=== PATIENT | female | born 1950 | race Caucasian/White ===

== ENCOUNTER 2017-03-14 14:33 | Inpatient (IN) ==
[2017-03-14 16:00] LABS: Bilirubin,Urine Negative (Negative); Blood,Urine Trace (Negative); Clarity,Urine Cloudy (Clear); Color,Urine Yellow (Yellow); Glucose,Urine (UA) Normal (Normal); Ketones,Urine Negative (Negative); Leukocyte Esterase,Urine Moderate (Negative); Nitrite,Urine Negative (Negative); PH,Urine 6.5 pH Units (5.0-8.0); Protein,Urine Negative (Neg-Trace); Specific Gravity,Urine 1.009 (1.010-1.025); Urobilinogen,Urine Normal (Normal)
--- NOTE | 2017-03-14 16:06 | Emergency Department Note ---
Disposition Clinical Impression: Altered mental status Qualifiers: Altered mental status type: disorientation Qualified Code(s): R41.0 - Disorientation, unspecified UTI (urinary tract infection) Qualifiers: Urinary tract infection type: acute cystitis Hematuria presence: with hematuria Qualified Code(s): N30.01 - Acute cystitis with hematuria Disposition: Admitted As Inpatient Condition: Good Time of Disposition: 17:16 General Adult HPI - General Chief complaint: ED Altered Mental Status Stated complaint: "pain all over" Time Seen by Provider: 03/14/17 15:02 Source: patient Mode of arrival: ambulatory Limitations: no limitations Nursing Notes Reviewed: Yes Vital Signs Reviewed: Yes - History of Present Illness HPI Narrative: Patient confused. Found wandering throughout the emergency department waiting room. Complaining of pain all over. States she fell 2 weeks ago and has had pain ever since. Pain Scale: 0 - Related Data Home Medications Medication Instructions Recorded Confirmed ALPRAZolam [Xanax 0.5 MG Tablet] 0.5 mg PO BID 01/27/17 03/14/17 Aspirin 81 mg PO DAILY 01/27/17 03/14/17 Atorvastatin [Lipitor] 20 mg PO HS 01/27/17 03/14/17 Carvedilol [Coreg] 6.25 mg PO BIDWM 01/27/17 03/14/17 Citalopram [CeleXA] 20 mg PO DAILY 01/27/17 03/14/17 Dicyclomine [Bentyl] 20 mg PO QID 01/27/17 03/14/17 Lisinopril [Zestril] 5 mg PO DAILY 01/27/17 03/14/17 Potassium Chloride [K-Tab ER] 30 meq PO DAILY 01/27/17 03/14/17 Ranitidine HCl [Zantac] 300 mg PO DAILY 01/27/17 03/14/17 SUMAtriptan succinate [Imitrex] 50 mg PO Q2H PRN MDD 200 01/27/17 03/14/17 Topiramate [Topamax] 25 mg PO DAILY 01/27/17 03/14/17 Tramadol HCl [Ultram] 50 mg PO Q8H PRN 01/27/17 03/14/17 rOPINIRole [Requip] 2 mg PO HS 01/27/17 03/14/17 Metoprolol XL (24 HR) Succ [Toprol 50 mg PO DAILY 03/14/17 03/14/17 XL] Allergies Allergy/AdvReac Type Severity Reaction Status Date / Time Penicillins [PCN] Allergy See Verified 01/27/17 21:40 Comments morphine AdvReac Itching Verified 01/27/17 21:40 Review of Systems: Patient appears to be confused however when questioned she denies any fevers or chills. She denies any chest pain or shortness of breath. She does report pain to the back of her head. She denies nausea vomiting diarrhea. She denies abdominal pain. Denies any swelling to her extremities. All systems ED: reviewed and negative except as stated. Past Medical History - Past Medical History Attestation: Yes The following information was validated with the patient. Source: patient Medical history: Reports: coronary artery disease, hypertension, myocardial infarction, other Surgical history: Reports: non-contributory Psychiatric history: Reports: depression, prior suicide attempt LUMP INSPECTOR history: Reports: no LUMP INSPECTOR history - Social History Smoking Status: Current every day smoker Smokeless Tobacco Status: No Alcohol use: Reports: none Drug use: Reports: none Physical Exam - General Limitations: no limitations General appearance: alert, in no apparent distress, other (Somewhat confused. However no spurs in place month and year.) - Head Head exam: atraumatic, normocephalic, normal inspection - Eye Eye exam: Present: normal appearance, PERRL, EOMI. Absent: scleral icterus - ENT ENT exam: normal exam, normal oropharynx, mucous membranes moist - Neck Neck exam: Present: normal inspection, full ROM, trachea midline. Absent: tenderness, meningismus, lymphadenopathy - Chest Chest inspection: Present: normal inspection, symmetric chest wall rise. Absent : tenderness - Respiratory Respiratory exam: Present: normal lung sounds bilaterally. Absent: respiratory distress, wheezes, accessory muscle use - Cardiovascular Cardiovascular exam: Present: regular rate, normal rhythm, normal heart sounds - Abdominal Exam Abdominal exam: Present: soft, Non-Tender, normal bowel sounds. Absent: tenderness, distention, guarding, rebound, rigidity, organomegaly - Extremities Exam Extremities exam: Present: normal inspection, full ROM, normal capillary refill , other (Mild pain to palpation of right thigh area. No ecchymos no signs of trauma.). Absent: tenderness, pedal edema - Back Exam Back exam: Present: normal inspection, full ROM, CVA tenderness (R). Absent: tenderness - Neurological Exam Neurological exam: Present: alert, oriented X3, CN II-XII intact, other (But confused. She frequently changes her story. She is neurologically intact.). Absent: motor sensory deficit - Psychiatric Psychiatric exam: Present: normal affect, normal mood - Skin Skin exam: Present: warm, dry, intact, normal color. Absent: rash, cyanosis, diaphoresis, erythema Course Course Narrative: Female patient presenting to the emergency department complaining of pain all over. She was found wandering through the ED waiting room. She states that her neighbor brought her here. She is alert to person place and time. She knows her name where she has what month it is and what year it is. However she does appear confused whenever you are speaking to her. She states her neighbor brought her here. Her story is that 2 weeks ago she fell. She is unable to tell me where she fell other than it was at her house. She cannot tell me where in her house that she fell. She keeps saying that she just has pain everywhere. Even after asked her specifically where she hurts she says her head and her. On exam I do not appreciate any signs of trauma. Her pupils are equal and reactive to light. On a chart review she was recently admitted for hydrocephalus. There was a concern for meningitis however on LP she had alo blood. The CTA could not rule out a subarachnoid bleed and she was transferred to [place]. Patient states that she has been ambulatory since her fall. She states that her neighbor brought her to the hospital. On exam she does complain of pain to the posterior aspect of her head. Again I do not appreciate any signs of trauma. Her pupils are equal and reactive to light. She has no point tenderness to her C-spine. There are no step-offs. She does have midline tenderness to her thoracic area however there are no step-offs or signs of trauma. She has no neurological deficits. She has good finger to nose and heel to haji. - Reevaluation(s) Reevaluation #1: Patient is more confused at this time. We have spoken with her primary care physician who states that she called his cell phone this morning. She is now stating that she has not slept in 2 days because "the storm is coming." Patient does appear greater than her stated age. We will admit the patient to the hospital for altered mental status as well as UTI. We have started her on antibiotics. The PCP alludes to the patient's mental status has been declining. States that she does have a psychiatric history and has had one episode where she abused her benzos previously. However her drug screen is negative at this time. I am unsure how long it has been since she has taken her meds. She did report to my attending that she has not taken her meds in several days. Time: 16:58 - Consultations Consultation #1: Nivia NEWSSTAND VENDOR accepted patient in stable condition. Time: 17:32 Vital Signs Temperature 97.8 F 03/14/17 15:05 Pulse Rate 84 03/14/17 15:05 Respiratory Rate 16 03/14/17 15:05 Blood Pressure 144/78 03/14/17 15:05 O2 Sat by Pulse Oximetry 98 03/14/17 15:05 Temperature 97.8 F 03/14/17 15:05 Pulse Rate 81 03/14/17 17:46 Respiratory Rate 16 03/14/17 18:16 Blood Pressure 148/80 03/14/17 18:16 O2 Sat by Pulse Oximetry 98 03/14/17 17:46 Oxygen Delivery Oxygen Delivery Room Air Medical Decision Making - Medical Records Medical records reviewed: Yes I reviewed the patient's medical records. - Lab Data Lab results reviewed: Yes I reviewed the patient's lab results. Result diagrams: 03/14/17 16:04 03/14/17 16:04 Lab Results 03/14/17 03/14/17 03/14/17 Range/Units 15:21 15:52 15:55 WBC (4.3-11.1) K/mcL RBC (3.82-4.97) M/mcL Hgb (11.5-15.4) g/dL Hct (35.3-44.9) % MCV (83.0-100.0) fL MCH (28.0-33.3) pg MCHC (31.6-35.5) g/dL RDW (11.5-14.5) % Plt Count (140-400) K/mcL MPV (9.4-12.4) fL Immature Gran % (0-4) % Seg Neutrophils % % Lymphocytes % % Monocytes % % Eosinophils % % Basophils % % Neutrophils # (1.6-8.9) K/mcL Lymphocytes # (0.6-4.6) K/mcL Monocytes # (0.0-1.3) K/mcL Eosinophils # (0.0-0.6) K/mcL Basophils # (0.0-0.2) K/mcL PT (9.4-12.1) Seconds INR APTT (26.0-36.0) Seconds Sodium (136-145) mEq/L Potassium (3.5-4.5) mEq/L Chloride (98-109) mEq/L Carbon Dioxide (19-29) mEq/L BUN (7-20) mg/dL Creatinine (0.57-1.11) mg/dL Est GFR ( Amer) (> 60) Est GFR (Non-Af Amer) (> 60) BUN/Creatinine Ratio (6-26) Glucose (70-99) mg/dL POC Glucose 134 H (58-89) Calculated Osmolality (280-300) Calcium (8.6-10.8) mg/dL Total Bilirubin (0.2-1.2) mg/dL Direct Bilirubin (0.0-0.5) mg/dL Indirect Bilirubin (0.0-1.2) mg/dL AST (5-34) Units/L ALT (0-55) Units/L Alkaline Phosphatase (38-126) Units/L Ammonia (18-72) mcmol/L Creatine Kinase (29-168) Units/L Troponin I (0-0.03) ng/mL Serum Total Protein (6.0-8.3) g/dL Albumin (3.5-5.0) g/dL Globulin (2.4-3.5) g/dL Albumin/Globulin Ratio (1.1-2.2) Urine Color Yellow (Yellow) Urine Clarity Cloudy A (Clear) Urine pH 6.5 (5.0-8.0) pH Units Ur Specific [place] 1.009 L (1.010-1.025) Urine Protein Negative (Neg-Trace) mg/dL Urine Glucose (UA) Normal (Normal) mg/dL Urine Ketones Negative (Negative) mg/dL Urine Blood Trace H (Negative) Urine Nitrite Negative (Negative) Urine Bilirubin Negative (Negative) Urine Urobilinogen Normal (Normal) mg/dL Ur Leukocyte Esterase Moderate H (Negative) Urine Microscopic RBC 0-3 (0-3) per hpf Urine Microscopic WBC 5-15 H (0-3) per hpf Ur Squamous Epith Cells Few (None-Few) per lpf Urine Bacteria Few (None-Few) per hpf Hyaline Casts None Seen (None-Few) per lpf Ur Culture Indicated? YES A (NO) Urine Opiates Screen Negative (Xfqnhi=490) ng/mL Ur Barbiturates Screen Negative (Vuekxj=301) ng/mL Ur Phencyclidine Scrn Negative (Cutoff=25) ng/mL Ur Amphetamines Screen Negative (Rdnmpm=5025) ng/mL U Benzodiazepines Scrn Negative (Lumebl=643) ng/mL Urine Cocaine Screen Negative (Cutoff= 300) ng/mL U Marijuana (THC) Screen Negative (Cutoff = 50) ng/mL Ethyl Alcohol (0-10) mg/dL 03/14/17 03/14/17 03/14/17 Range/Units 16:04 16:04 16:04 WBC 7.2 (4.3-11.1) K/mcL RBC 4.31 (3.82-4.97) M/mcL Hgb 13.6 (11.5-15.4) g/dL Hct 42.2 (35.3-44.9) % MCV 97.9 (83.0-100.0) fL MCH 31.6 (28.0-33.3) pg MCHC 32.2 (31.6-35.5) g/dL RDW 13.0 (11.5-14.5) % Plt Count 306 (140-400) K/mcL MPV 9.5 (9.4-12.4) fL Immature Gran % 0.3 (0-4) % Seg Neutrophils % 60.6 % Lymphocytes % 27.8 % Monocytes % 10.1 % Eosinophils % 0.6 % Basophils % 0.6 % Neutrophils # 4.4 (1.6-8.9) K/mcL Lymphocytes # 2.0 (0.6-4.6) K/mcL Monocytes # 0.7 (0.0-1.3) K/mcL Eosinophils # 0.0 (0.0-0.6) K/mcL Basophils # 0.0 (0.0-0.2) K/mcL PT 10.7 (9.4-12.1) Seconds INR 1.0 APTT 24.6 L (26.0-36.0) Seconds Sodium 137 (136-145) mEq/L Potassium 3.5 (3.5-4.5) mEq/L Chloride 102 (98-109) mEq/L Carbon Dioxide 30 H (19-29) mEq/L BUN 8 (7-20) mg/dL Creatinine 0.77 (0.57-1.11) mg/dL Est GFR ( Amer) > 60 (> 60) Est GFR (Non-Af Amer) > 60 (> 60) BUN/Creatinine Ratio 10 (6-26) Glucose 126 H (70-99) mg/dL POC Glucose (58-89) Calculated Osmolality 284 (280-300) Calcium 9.1 (8.6-10.8) mg/dL Total Bilirubin 1.1 (0.2-1.2) mg/dL Direct Bilirubin 0.5 (0.0-0.5) mg/dL Indirect Bilirubin 0.6 (0.0-1.2) mg/dL AST 27 (5-34) Units/L ALT 28 (0-55) Units/L Alkaline Phosphatase 127 H (38-126) Units/L Ammonia (18-72) mcmol/L Creatine Kinase (29-168) Units/L Troponin I (0-0.03) ng/mL Serum Total Protein 6.2 (6.0-8.3) g/dL Albumin 3.1 L (3.5-5.0) g/dL Globulin 3.1 (2.4-3.5) g/dL Albumin/Globulin Ratio 1.0 L (1.1-2.2) Urine Color (Yellow) Urine Clarity (Clear) Urine pH (5.0-8.0) pH Units Ur Specific [place] (1.010-1.025) Urine Protein (Neg-Trace) mg/dL Urine Glucose (UA) (Normal) mg/dL Urine Ketones (Negative) mg/dL Urine Blood (Negative) Urine Nitrite (Negative) Urine Bilirubin (Negative) Urine Urobilinogen (Normal) mg/dL Ur Leukocyte Esterase (Negative) Urine Microscopic RBC (0-3) per hpf Urine Microscopic WBC (0-3) per hpf Ur Squamous Epith Cells (None-Few) per lpf Urine Bacteria (None-Few) per hpf Hyaline Casts (None-Few) per lpf Ur Culture Indicated? (NO) Urine Opiates Screen (Watbcv=049) ng/mL Ur Barbiturates Screen (Qmsegw=563) ng/mL Ur Phencyclidine Scrn (Cutoff=25) ng/mL Ur Amphetamines Screen (Vxdyon=4797) ng/mL U Benzodiazepines Scrn (Gdoegs=969) ng/mL Urine Cocaine Screen (Cutoff= 300) ng/mL U Marijuana (THC) Screen (Cutoff = 50) ng/mL Ethyl Alcohol < 10 (0-10) mg/dL 03/14/17 03/14/17 03/14/17 Range/Units 16:04 16:04 16:04 WBC (4.3-11.1) K/mcL RBC (3.82-4.97) M/mcL Hgb (11.5-15.4) g/dL Hct (35.3-44.9) % MCV (83.0-100.0) fL MCH (28.0-33.3) pg MCHC (31.6-35.5) g/dL RDW (11.5-14.5) % Plt Count (140-400) K/mcL MPV (9.4-12.4) fL Immature Gran % (0-4) % Seg Neutrophils % % Lymphocytes % % Monocytes % % Eosinophils % % Basophils % % Neutrophils # (1.6-8.9) K/mcL Lymphocytes # (0.6-4.6) K/mcL Monocytes # (0.0-1.3) K/mcL Eosinophils # (0.0-0.6) K/mcL Basophils # (0.0-0.2) K/mcL PT (9.4-12.1) Seconds INR APTT (26.0-36.0) Seconds Sodium (136-145) mEq/L Potassium (3.5-4.5) mEq/L Chloride (98-109) mEq/L Carbon Dioxide (19-29) mEq/L BUN (7-20) mg/dL Creatinine (0.57-1.11) mg/dL Est GFR ( Amer) (> 60) Est GFR (Non-Af Amer) (> 60) BUN/Creatinine Ratio (6-26) Glucose (70-99) mg/dL POC Glucose (58-89) Calculated Osmolality (280-300) Calcium (8.6-10.8) mg/dL Total Bilirubin (0.2-1.2) mg/dL Direct Bilirubin (0.0-0.5) mg/dL Indirect Bilirubin (0.0-1.2) mg/dL AST (5-34) Units/L ALT (0-55) Units/L Alkaline Phosphatase (38-126) Units/L Ammonia 18 (18-72) mcmol/L Creatine Kinase 138 (29-168) Units/L Troponin I 0.03 (0-0.03) ng/mL Serum Total Protein (6.0-8.3) g/dL Albumin (3.5-5.0) g/dL Globulin (2.4-3.5) g/dL Albumin/Globulin Ratio (1.1-2.2) Urine Color (Yellow) Urine Clarity (Clear) Urine pH (5.0-8.0) pH Units Ur Specific [place] (1.010-1.025) Urine Protein (Neg-Trace) mg/dL Urine Glucose (UA) (Normal) mg/dL Urine Ketones (Negative) mg/dL Urine Blood (Negative) Urine Nitrite (Negative) Urine Bilirubin (Negative) Urine Urobilinogen (Normal) mg/dL Ur Leukocyte Esterase (Negative) Urine Microscopic RBC (0-3) per hpf Urine Microscopic WBC (0-3) per hpf Ur Squamous Epith Cells (None-Few) per lpf Urine Bacteria (None-Few) per hpf Hyaline Casts (None-Few) per lpf Ur Culture Indicated? (NO) Urine Opiates Screen (Lztruh=156) ng/mL Ur Barbiturates Screen (Cmkjcv=490) ng/mL Ur Phencyclidine Scrn (Cutoff=25) ng/mL Ur Amphetamines Screen (Ifdvrt=5418) ng/mL U Benzodiazepines Scrn (Ndcvpo=923) ng/mL Urine Cocaine Screen (Cutoff= 300) ng/mL U Marijuana (THC) Screen (Cutoff = 50) ng/mL Ethyl Alcohol (0-10) mg/dL - Radiology Data Radiology results reviewed: Yes I reviewed the patient's radiology results. Chest X-Ray 03/14/17 15:16 IMPRESSION: Normal chest x-ray D/ / Florentin Lozano MD / Florentin Lozano MD Interpreting Provider: Florentin Lozano MD Head CT 03/14/17 15:24 IMPRESSION: No acute intracranial abnormality. D/ / Miguel Marquez MD / Miguel Marquez MD Interpreting Provider: Miguel Marquez MD - EKG Data EKG #1 EKG attestation: Yes I reviewed and interpreted this EKG. EKG results narrative: Normal sinus rhythm at a rate of 80. AL interval is 137. QRS duration is 144. QT is 4:15. QTC is 451. No signs of acute ischemia. No significant change from previous EKG dated 01/22/2017. She does have a left bundle branch block that was present on the previous EKG. Attestation Statement - Attestation Attestation: I personally interviewed and examined this patient and my medical decision- making was reviewed with the Resident Physician, Dr. Orosco. I agree with the documented findings, disposition and treatment plan as described except to the extent set forth below. Patient is a 67-year-old white female who was brought back from the waiting room directly to room for altered mental status. The triage nurse mentioned that she is not sure how the patient got here she believes she was dropped off by patient does remember by whom patient is awake alert and oriented [address] only but has what appears to be short-term memory loss. Patient is pleasant and in no acute distress with no complaints of pain or discomfort but states that she fell a few weeks ago. Patient thinks she might have struck her head but really cannot recall and has no apparent sign of injury on exam. Upon review of records patient was seen here in January with mental status changes and decompensated quickly requiring intubation and was sent to [place] for further evaluation. Patient when asked about this visit has very little recollection of the evaluation or results from [facility] at time of discharge. Agree patient's physical exam findings as documented. Notified by the triage nurse that they did contact us on the patient who states that the last time she was confused like this that she had a bad urinary tract infection. We do have his number to be able to contact him for further details. She was placed in a room vital signs are stable on arrival she is in no acute distress with no complaints. Her chief complaint upon the triage list pain all over although patient is inconsistent with her locations of pain. Patient's EKG was negative for any acute ischemic changes. She was placed on computer science instructor continuous pulse ox IV saline was established and she was sent for head CT as well as chest x-ray and labs drawn and sent including a urinalysis. Patient's urine came back washable for urinary tract infection so we will cover her with IV antibiotics. The remainder of her labs are unremarkable and her vitals have remained stable. Patient still remains pleasantly confused and on reassessment was discussing how she has not slept in over the past 2 days has not been taking her medications as prescribed and mentions she was "worried about the storm". Her family doctor happened to be in the department while she was a patient and did ask that she called him at 5: 00 this morning with message where she sounded confused. Apparently she has also had extensive mental health evaluations in the past also. This point I feel the patient is not safe to be discharged home as she lives alone and recommended admission to the hospital for further evaluation of these mental status changes as well as IV antibiotics. Patient remains hemodynamically stable. Case was discussed with the hospitalist who accepted the patient for admission.
[2017-03-14 16:07] LABS: Amphetamine Screen,Urine Negative ng/mL (Cutoff=1000); Barbiturate Screen,Urine Negative ng/mL (Cutoff=200); Benzodiazepines Screen,Urine Negative ng/mL (Cutoff=200); Cannabinoid Screen,Urine Negative ng/mL (Cutoff = 50); Cocaine Screen,Urine Negative ng/mL (Cutoff= 300); Opiate Screen,Urine Negative ng/mL (Cutoff=300); Phencyclidine Screen,Urine Negative ng/mL (Cutoff=25)
[2017-03-14 16:19] LABS: Basophils % 0.6 %; Eosinophils % 0.6 %; Hematocrit 42.2 % (35.3-44.9); Hemoglobin 13.6 g/dL (11.5-15.4); Immature Granulocytes % 0.3 % (0-4); Lymphocytes % 27.8 %; Mean Corpuscular HGB Conc 32.2 g/dL (31.6-35.5); Mean Corpuscular Hemoglobin 31.6 pg (28.0-33.3); Mean Corpuscular Volume 97.9 fL (83.0-100.0); Mean Platelet Volume 9.5 fL (9.4-12.4); Monocytes # 0.7 K/mcL (0.0-1.3); Monocytes % 10.1 %; Neutrophils # 4.4 K/mcL (1.6-8.9); Platelet Count 306 K/mcL (140-400); Red Blood Count 4.31 M/mcL (3.82-4.97); Segmented Neutrophils % 60.6 %
[2017-03-14 16:22] LABS: Prothrombin Time 10.7 Seconds (9.4-12.1)
[2017-03-14 16:24] LABS: Activated Partial Thrombo Time 24.6 Seconds (26.0-36.0)
[2017-03-14 16:30] LABS: RBC,Urine 0-3 per hpf (0-3); Squamous Epithelial Cell,Urine Few per lpf (None-Few)
[2017-03-14 16:31] LABS: Bacteria,Urine Few per hpf (None-Few); Hyaline Casts,Urine None Seen per lpf (None-Few)
[2017-03-14 16:31] LABS: Alanine Aminotransferase 28 Units/L (0-55); Albumin 3.1 g/dL (3.5-5.0); Alkaline Phosphatase 127 Units/L (38-126); Aspartate Amino Transferase 27 Units/L (5-34); BUN/Creatinine Ratio 10 (6-26); Bilirubin,Direct 0.5 mg/dL (0.0-0.5); Bilirubin,Indirect 0.6 mg/dL (0.0-1.2); Bilirubin,Total 1.1 mg/dL (0.2-1.2); Blood Urea Nitrogen 8 mg/dL (7-20); Calcium 9.1 mg/dL (8.6-10.8); Carbon Dioxide 30 mEq/L (19-29); Chloride 102 mEq/L (98-109); Globulin 3.1 g/dL (2.4-3.5); Glucose 126 mg/dL (70-99); Osmolality,Calculated 284 (280-300); Potassium 3.5 mEq/L (3.5-4.5); Sodium 137 mEq/L (136-145); Total Protein 6.2 g/dL (6.0-8.3); eGFR For African Americans > 60 (> 60); eGFR For Non-African Americans > 60 (> 60)
[2017-03-14 16:36] LABS: Ethanol < 10 mg/dL (0-10)
[2017-03-14] MEDS ORDERED: SUMAtriptan succinate 50 MG TABLET PO PRN (23:28)
[2017-03-14] MEDS ORDERED: Naloxone 0.4 MG/ML INJ IVP PRN (23:30)
--- NOTE | 2017-03-14 23:37 | Internal Med History&Physical ---
Date of Encounter: 03/14/17 Time of Encounter: 23:35 Assessment and Plan (1) UTI (urinary tract infection) Current visit: Yes Status: Acute IV cipro, await urine cx, IVF Qualifiers: Urinary tract infection type: acute cystitis Hematuria presence: with hematuria Qualified Code(s): N30.01 - Acute cystitis with hematuria (2) Physical deconditioning Current visit: No Status: Acute PT eval for placement. Case management assistance would be appreciated (3) Altered mental status Current visit: Yes Status: Acute Metabolic encephalopathy 2/2 UTI. Treat above. Monitor hospital course Qualifiers: Altered mental status type: disorientation Qualified Code(s): R41.0 - Disorientation, unspecified Internal Medicine - H&P: HPI Chief complaint: AMS. Fall History of present illness: Ms. Bowles is a 67 year old female who lives along who presents with AMS, fall. Found to be suspicious for UTI. She lives alone at home and fell at home while walking in her house with a bump to the back of her head. Her neighbor was concerned for her weakness and perceived some confusion and persuaded her to come into the ED for eval. They were concerned she is unable to self care. Patient is mildly confused but alert to time and city. Did not know where she was initially. CXR, CT head wnl UA with pyuria EKG reviewed by self with rate 80, NSR, LBBB unchanged from prior Past Med Surg Social Fam HX - Past Medical History Medical history: coronary artery disease, hypertension, myocardial infarction, other Psychiatric history: depression, prior suicide attempt - Past Surgical History Surgical History: non-contributory - Social History Smoking Status: Current every day smoker Smokeless Tobacco Status: No Alcohol use: none Drug use: none Internal Medicine - H&P: Meds ALPRAZolam [Xanax 0.5 MG Tablet] 0.5 mg PO BID 01/27/17 [History] Aspirin 81 mg PO DAILY 01/27/17 [History] Atorvastatin [Lipitor] 20 mg PO HS 01/27/17 [History] Carvedilol [Coreg] 6.25 mg PO BIDWM 01/27/17 [History] Citalopram [CeleXA] 20 mg PO DAILY 01/27/17 [History] Dicyclomine [Bentyl] 20 mg PO QID 01/27/17 [History] Lisinopril [Zestril] 5 mg PO DAILY 01/27/17 [History] Potassium Chloride [K-Tab ER] 30 meq PO DAILY 01/27/17 [History] Ranitidine HCl [Zantac] 300 mg PO DAILY 01/27/17 [History] SUMAtriptan succinate [Imitrex] 50 mg PO Q2H PRN MDD 200 01/27/17 [History] Topiramate [Topamax] 25 mg PO DAILY 01/27/17 [History] Tramadol HCl [Ultram] 50 mg PO Q8H PRN 01/27/17 [History] rOPINIRole [Requip] 2 mg PO HS 01/27/17 [History] Metoprolol XL (24 HR) Succ [Toprol XL] 50 mg PO DAILY 03/14/17 [History] 3 Allergy/AdvReac Type Severity Reaction Status Date / Time Penicillins [PCN] Allergy See Verified 01/27/17 21:40 Comments morphine AdvReac Itching Verified 01/27/17 21:40 All Systems PM: A 10-system review of systems was performed and is negative for pertinent findings except as documented above in the HPI. Review of systems: ROS 14 point review of systems reviewed as best as possible given presentation. Pertinent positive or negative as per HPI or otherwise reviewed as negative - Constitutional Vitals: Temp Pulse Resp BP Pulse Ox 98.1 F 76 17 151/80 97 03/14/17 18:45 03/14/17 18:45 03/14/17 18:45 03/14/17 18:45 03/14/17 18:45 Exam: General - alert to time and city not to place Eyes - CAITLIN. Eye lids intact. No scleral icterus ENT - Oral mucosa pink, dentition intact. External ear clear/dry/intact. No thyromegaly Lymphatics - No cervical/inguinal lympadenopathy Neuro - No gross peripheral or central neuro deficits Heart - Sinus. RRR. S1 and S2 present. No added HS/murmurs appreciated. No elevated JVD appreciated. Lung - Adequate air entry b/l, No crackes/wheezes appreciated GI - Soft, non-tender. No hepatosplenomegaly/ascites. BS+ - No CVA/suprapubic tenderness or palpable bladder distension Skin - Intact. No rash/petechiae/ecchymosis. Warm extremities Internal Med - H&P Results - Labs CBC & Chem 7: 03/14/17 16:04 03/14/17 16:04
[2017-03-15] MEDS: 0.9 % Sodium Chloride 1,000 ML IVC SCH ×3 (00:20→20:08)
[2017-03-15 04:44] LABS: Basophils # 0.1 K/mcL (0.0-0.2); Basophils % 0.7 %; Eosinophils # 0.1 K/mcL (0.0-0.6); Eosinophils % 0.8 %; Hematocrit 39.7 % (35.3-44.9); Hemoglobin 13.1 g/dL (11.5-15.4); Immature Granulocytes % 0.4 % (0-4); Lymphocytes # 2.4 K/mcL (0.6-4.6); Mean Corpuscular Volume 97.1 fL (83.0-100.0); Mean Platelet Volume 9.7 fL (9.4-12.4); Monocytes # 0.8 K/mcL (0.0-1.3); Monocytes % 9.2 %; Platelet Count 287 K/mcL (140-400); Red Blood Count 4.09 M/mcL (3.82-4.97); Red Cell Distribution Width 13.2 % (11.5-14.5); Segmented Neutrophils % 59.9 %
[2017-03-15 04:56] LABS: BUN/Creatinine Ratio 14 (6-26); Blood Urea Nitrogen 10 mg/dL (7-20); Calcium 8.7 mg/dL (8.6-10.8); Carbon Dioxide 27 mEq/L (19-29); Chloride 107 mEq/L (98-109); Glucose 111 mg/dL (70-99); Magnesium 1.9 mg/dL (1.6-2.6); Osmolality,Calculated 294 (280-300); Potassium 3.5 mEq/L (3.5-4.5); Sodium 142 mEq/L (136-145); eGFR For African Americans > 60 (> 60); eGFR For Non-African Americans > 60 (> 60)
[2017-03-15] MEDS: *HR* Enoxaparin 40 MG/0.4 ML SYRINGE SQ SCH (06:21)
[2017-03-15] MEDS: Famotidine 20 MG TABLET PO SCH (09:06)
[2017-03-15] MEDS: Topiramate 25 MG TABLET PO SCH (09:07)
[2017-03-15] MEDS: Metoprolol XL (24 HR) Succ 50 MG TAB.ER.24H PO SCH (09:07)
[2017-03-15] MEDS: Aspirin 81 MG TAB.CHEW PO SCH (09:07)
[2017-03-15] MEDS: ALPRAZolam 0.5 MG TABLET PO SCH ×2 (09:07→20:08)
[2017-03-15] MEDS: traMADol 50 MG TABLET PO PRN (10:30)
--- NOTE | 2017-03-15 14:06 | Internal Med Progress Note ---
Date of Encounter: 03/15/17 Time of Encounter: 09:50 - Assessment and plan (1) Altered mental status Current Visit: Yes Status: Acute Assessment and plan: Acute metabolic encephalopathy and confusion, most likely related to acute urinary tract infection. We will treat underlying urinary tract infection and monitor neurological function. moderate risk for complications. Qualifiers: Altered mental status type: disorientation Qualified Code(s): R41.0 - Disorientation, unspecified (2) Physical deconditioning Current Visit: No Status: Acute Assessment and plan: Physical therapy has been consulted. We will await recommendations (3) UTI (urinary tract infection) Current Visit: Yes Status: Acute Assessment and plan: Continue ciprofloxacin. Await cultures. Qualifiers: Urinary tract infection type: acute cystitis Hematuria presence: with hematuria Qualified Code(s): N30.01 - Acute cystitis with hematuria - Constitutional Vitals: Temp Pulse Resp BP Pulse Ox 97.8 F 78 16 126/78 97 03/15/17 11:20 03/15/17 11:20 03/15/17 11:20 03/15/17 11:20 03/15/17 11:20 General appearance: Present: cooperative, no acute distress. Absent: answers questions appropriately Exam: Patient is not answering questions appropriately at this time. She does appear to have a flight of thoughts and ideas. - Respiratory Respiratory exam: Present: CTAB. Absent: accessory muscle use, rales, rhonchi, wheezes - Cardiovascular Cardiovascular exam: Present: RRR, +S1, +S2. Absent: diastolic murmur, gallop, rubs, systolic murmur - Extremities Exam Extremities exam: Present: warm, radial pulses palpable and symmetrical. Absent : calf tenderness, cyanotic, pedal edema - Neurological Exam Neurological exam: Present: alert, altered, no focal deficits. Absent: facial droop, speech deficit - Psychiatric Psychiatric exam: Present: flat affect Additional comments: Patient appears to be having some flight of thoughts and ideas. Not having suicidal ideation but multiple times during my discussion with her she talked about falling asleep and not waking up again - Skin Skin exam: Present: dry, intact Internal Medicine: Result - Labs CBC & Chem 7: 03/15/17 03:41 03/15/17 03:41 Labs: Short CBC 03/15/17 Range/Units 03:41 WBC 8.4 (4.3-11.1) K/mcL Hgb 13.1 (11.5-15.4) g/dL Hct 39.7 (35.3-44.9) % Plt Count 287 (140-400) K/mcL Neutrophils # 5.0 (1.6-8.9) K/mcL BMP 03/15/17 03:41 Sodium 142 Potassium 3.5 Chloride 107 Carbon Dioxide 27 BUN 10 Creatinine 0.71 Glucose 111 H Calcium 8.7 - ABG Interpretation ABG results: PT/INR, D-dimer PT 10.7 Seconds (9.4-12.1) 03/14/17 16:04 Consult Discharge Plan - Plan Referrals: Jeferson Ken MD [Primary Care Provider] -
[2017-03-15] MEDS: rOPINIRole 1 MG TABLET PO SCH (20:08)
[2017-03-16] MEDS: *HR* Enoxaparin 40 MG/0.4 ML SYRINGE SQ SCH (06:23)
[2017-03-16] MEDS: traMADol 50 MG TABLET PO PRN (08:55)
[2017-03-16] MEDS: Topiramate 25 MG TABLET PO SCH (08:55)
[2017-03-16] MEDS: Metoprolol XL (24 HR) Succ 50 MG TAB.ER.24H PO SCH (08:55)
[2017-03-16] MEDS: Aspirin 81 MG TAB.CHEW PO SCH (08:56)
[2017-03-16] MEDS: ALPRAZolam 0.5 MG TABLET PO SCH ×2 (08:56→20:24)
[2017-03-16] MEDS: Famotidine 20 MG TABLET PO SCH (08:56)
[2017-03-16] MEDS: 0.9 % Sodium Chloride 1,000 ML IVC SCH ×2 (09:01→20:24)
[2017-03-16] MEDS ORDERED: Haloperidol Lactate 5 MG/ML VIAL IVP ONE ×2 (10:31→20:28)
[2017-03-16] MEDS: Nicotine 21 MG PATCH.TD24 TD SCH (13:57)
--- NOTE | 2017-03-16 16:31 | Internal Med Progress Note ---
Date of Encounter: 03/16/17 Time of Encounter: 16:00 - Assessment and plan (1) Altered mental status Current Visit: Yes Status: Acute Assessment and plan: Acute encephalopathy likely related to acute urinary tract infection. Continue IV antibiotics. Continue monitoring neurologic function. We will use antipsychotics as needed for episodes of delirium and agitation. Moderate risk for complications. Qualifiers: Altered mental status type: delirium Qualified Code(s): R41.0 - Disorientation, unspecified (2) Physical deconditioning Current Visit: No Status: Acute Assessment and plan: At risk for falls. Has been recommended placement to skilled rehabilitation (3) UTI (urinary tract infection) Current Visit: Yes Status: Acute Assessment and plan: Urine culture growing gram-positive cocci. Patient receiving ciprofloxacin. No prior positive cultures available. We will await final results before changing antibiotics. Qualifiers: Urinary tract infection type: acute cystitis Hematuria presence: with hematuria Qualified Code(s): N30.01 - Acute cystitis with hematuria - Subjective Interval history: Patient is awake and alert. Remains confused. She was agitated earlier this morning and at risk for self-harm so she was given Haldol. She was able to sleep after she received the medication and is much less agitated this time. No reported fevers. Denies any pain at this time. - Constitutional Vitals: Temp Pulse Resp BP Pulse Ox 97.5 F L 66 16 126/73 98 03/16/17 15:32 03/16/17 15:32 03/16/17 15:32 03/16/17 15:32 03/16/17 15:32 General appearance: Present: cooperative, A&O X 1, no acute distress. Absent: answers questions appropriately - Eye Eye exam: Present: EOMI, PERRL, conjuntiva pink, sclera anicteric - Neck Neck exam general surgery: Present: supple, trachea midline. Absent: lymphadenopathy - Respiratory Respiratory exam: Present: CTAB. Absent: accessory muscle use, rales, rhonchi, wheezes - Cardiovascular Cardiovascular exam: Present: RRR, +S1, +S2. Absent: diastolic murmur, gallop, rubs, systolic murmur - GI/Abdominal GI/Abdominal exam: Present: normal bowel sounds, soft, no peritoneal signs. Absent: distended, tenderness - Extremities Exam Extremities exam: Present: warm, radial pulses palpable and symmetrical. Absent : calf tenderness, cyanotic, pedal edema Internal Medicine: Result - Labs CBC & Chem 7: 03/15/17 03:41 03/15/17 03:41 - ABG Interpretation ABG results: PT/INR, D-dimer PT 10.7 Seconds (9.4-12.1) 03/14/17 16:04 Consult Discharge Plan - Plan Referrals: Jeferson Ken MD [Primary Care Provider] -
[2017-03-16] MEDS: rOPINIRole 1 MG TABLET PO SCH (20:23)
[2017-03-17] MEDS: *HR* Enoxaparin 40 MG/0.4 ML SYRINGE SQ SCH (05:54)
[2017-03-17] MEDS: 0.9 % Sodium Chloride 1,000 ML IVC SCH ×2 (06:50→09:48)
[2017-03-17] MEDS: ALPRAZolam 0.5 MG TABLET PO SCH (09:40)
[2017-03-17] MEDS: Aspirin 81 MG TAB.CHEW PO SCH (09:40)
[2017-03-17] MEDS: Metoprolol XL (24 HR) Succ 50 MG TAB.ER.24H PO SCH (09:41)
[2017-03-17] MEDS: Topiramate 25 MG TABLET PO SCH (09:41)
[2017-03-17] MEDS: Famotidine 20 MG TABLET PO SCH (09:41)
[2017-03-17] MEDS: Nicotine 21 MG PATCH.TD24 TD SCH (09:42)
[2017-03-17 14:31] VITALS: BP 150/84
--- NOTE | 2017-03-17 15:23 | Discharge Summary ---
Date of Encounter: 03/17/17 Time of Encounter: 09:10 - Discharge Diagnosis (1) Altered mental status Priority: Primary Status: Acute Qualifiers: Altered mental status type: delirium Qualified Code(s): R41.0 - Disorientation, unspecified (2) Physical deconditioning Priority: Secondary Status: Acute (3) UTI (urinary tract infection) Priority: Secondary Status: Acute Qualifiers: Urinary tract infection type: acute cystitis Hematuria presence: with hematuria Qualified Code(s): N30.01 - Acute cystitis with hematuria - Discharge Medications Prescriptions: ALPRAZolam [Xanax 0.5 MG Tablet] 0.5 mg PO BID #20 Tramadol HCl [Ultram] 50 mg PO Q8H PRN #20 PRN Reason: Pain Home Medications: Aspirin 81 mg PO DAILY 01/27/17 [History] Atorvastatin [Lipitor] 20 mg PO HS 01/27/17 [History] Citalopram [CeleXA] 20 mg PO DAILY 01/27/17 [History] Dicyclomine [Bentyl] 20 mg PO QID 01/27/17 [History] Lisinopril [Zestril] 5 mg PO DAILY 01/27/17 [History] Potassium Chloride [K-Tab ER] 30 meq PO DAILY 01/27/17 [History] Ranitidine HCl [Zantac] 300 mg PO DAILY 01/27/17 [History] SUMAtriptan succinate [Imitrex] 50 mg PO Q2H PRN MDD 200 01/27/17 [History] Topiramate [Topamax] 25 mg PO DAILY 01/27/17 [History] rOPINIRole [Requip] 2 mg PO HS 01/27/17 [History] ALPRAZolam [Xanax 0.5 MG Tablet] 0.5 mg PO BID #20 03/17/17 [Rx] Carvedilol [Coreg] 12.5 mg PO BIDWM #0 03/17/17 [Rx] Ciprofloxacin [Cipro] 500 mg PO BID #20 tab 03/17/17 [Rx] Tramadol HCl [Ultram] 50 mg PO Q8H PRN #20 03/17/17 [Rx] Allergies/Adverse Reactions: 3 Allergy/AdvReac Type Severity Reaction Status Date / Time Penicillins [PCN] Allergy See Verified 01/27/17 21:40 Comments morphine AdvReac Itching Verified 01/27/17 21:40 Date of admission: 03/14/17 23:30 Primary care physician: Jeferson Ken MD Consults: 03/15/17 07:26 OT [Consult to Occupational Therapy] [CONS] Routine Comment: Evaluate, develop and implement POC Reason for Consult: discharge planning 03/16/17 08:21 Consult to Costume Shop Coordinator [CONS] Routine Reason for SW Consult: PT/OT recommending SNF, patient very confused Discharging clinician: Anahi Silverio Anticipated date of discharge: 03/17/17 - Patient Status Disposition: Transfer SNF Condition: Good Functional capacity at discharge: uses cane/walker Overall status at discharge: patient is progressing back to baseline - Discharge Instructions Instructions: Urinary Tract Infection in Women (DC) Follow Up With: Jeferson Ken MD [Primary Care Provider] - (in 1-2 weeks) - Diet and Activity Activity: as per physical therapy Diet: low fat, low cholesterol, low salt diet Hospital course: Ms. Bowles is a 67 year old female who was admitted here after being brought into the ER with complaints of altered mental status and recent fall. She was diagnosed with acute encephalopathy and physical deconditioning related to acute urinary tract infection. She was treated with IV antibiotics. She has remained confused although seems to be better oriented. In discussion with her family this seems to be her baseline. Patient was evaluated by physical therapy and recommended placement to skilled rehabilitation. Patient will be discharged to skilled rehabilitation today. Her urine culture was positive for staph hemolyticus which could be a skin contaminant but sensitive to ciprofloxacin. Given her symptoms, we will treat her with a short course of ciprofloxacin. She is clinically stable to be discharged to skilled rehabilitation at this time. - Time Spent with Patient Total time spent providing and/or coordinating discharge services: Less than 30 minutes (25 min) - Constitutional Vitals: Temp Pulse Resp BP Pulse Ox 97.5 F L 78 16 150/84 97 03/17/17 14:30 03/17/17 14:30 03/17/17 14:30 03/17/17 14:30 03/17/17 14:30 General appearance: Present: cooperative, A&O X 1, no acute distress, answers questions appropriately - Neck Neck exam general surgery: Present: supple, trachea midline. Absent: lymphadenopathy - Respiratory Respiratory exam: Present: CTAB. Absent: accessory muscle use, rales, rhonchi, wheezes - Cardiovascular Cardiovascular exam: Present: RRR, +S1, +S2. Absent: diastolic murmur, gallop, rubs, systolic murmur - Extremities Exam Extremities exam: Present: warm, radial pulses palpable and symmetrical. Absent : calf tenderness, cyanotic, pedal edema - Neurological Exam Neurological exam: Present: alert, no focal deficits. Absent: facial droop, speech deficit
--- NOTE | 2017-03-17 15:26 | Physician Discharge Referral ---
ExtendedCare Referral Info Provider in Charge after Transfer: PCP Institutional Level of Care: Skilled - Diagnosis (1) Altered mental status Priority: Primary Status: Acute (2) Physical deconditioning Priority: Secondary Status: Acute (3) UTI (urinary tract infection) Priority: Secondary Status: Acute Prognosis: Good Aware of Diagnosis: Patient, Family Aware of Prognosis: Patient, Family - Transfer Medications Prescriptions: ALPRAZolam [Xanax 0.5 MG Tablet] 0.5 mg PO BID #20 Tramadol HCl [Ultram] 50 mg PO Q8H PRN #20 PRN Reason: Pain Home Medications: Aspirin 81 mg PO DAILY 01/27/17 [History] Atorvastatin [Lipitor] 20 mg PO HS 01/27/17 [History] Citalopram [CeleXA] 20 mg PO DAILY 01/27/17 [History] Dicyclomine [Bentyl] 20 mg PO QID 01/27/17 [History] Lisinopril [Zestril] 5 mg PO DAILY 01/27/17 [History] Potassium Chloride [K-Tab ER] 30 meq PO DAILY 01/27/17 [History] Ranitidine HCl [Zantac] 300 mg PO DAILY 01/27/17 [History] SUMAtriptan succinate [Imitrex] 50 mg PO Q2H PRN MDD 200 01/27/17 [History] Topiramate [Topamax] 25 mg PO DAILY 01/27/17 [History] rOPINIRole [Requip] 2 mg PO HS 01/27/17 [History] ALPRAZolam [Xanax 0.5 MG Tablet] 0.5 mg PO BID #20 03/17/17 [Rx] Carvedilol [Coreg] 12.5 mg PO BIDWM #0 03/17/17 [Rx] Ciprofloxacin [Cipro] 500 mg PO BID #20 tab 03/17/17 [Rx] Tramadol HCl [Ultram] 50 mg PO Q8H PRN #20 03/17/17 [Rx] Allergies/Adverse Reactions: 3 Allergy/AdvReac Type Severity Reaction Status Date / Time Penicillins [PCN] Allergy See Verified 01/27/17 21:40 Comments morphine AdvReac Itching Verified 01/27/17 21:40 - Respiratory Orders Smoking Cessation: Smoking cessation has been advised. For more information, call the [place] Tobacco Quit Line at 9-779-QCWE-NOW. - Ancillary Orders May consult with Dentist, Assistant Passenger Locomotive Engineer, Bench Assembly Inspector PRN - Advance Directives Code Status: Full Code - Mobility Orders Ambulate (per PT) - Rehabiliation Orders Rehab Potential: Good Rehab Orders: Evaluation for Physical Therapy, Evaluation for Occupational Therapy - Diet Orders Cardiac CERTIFICATION: I certify that the transfer of the above named patient to an Extended Care Facility is necessary for the continuing treatment of the diagnosis listed. The above information is true and accurate reflection of patient's current condition. Confidential - Redisclosure prohibited without a patient's written consent.
== END 2017-03-17 17:02 | DRG 689 ==
LOC: 3ANU 14:33 → EMEROO 14:33 → 3ANU 18:36
PROVIDERS: ADMIT Nurse Practitioner Family; ATTEND Internal Medicine

== ENCOUNTER 2017-07-24 19:59 | Observation (INO) ==
--- NOTE | 2017-07-24 20:05 | Emergency Department Note ---
Disposition Clinical Impression: Confusion, NPH (normal pressure hydrocephalus), Gait instability Disposition: Admitted As Inpatient Condition: Fair General Adult HPI - General Chief complaint: ED Fall Stated complaint: Fall Time Seen by Provider: 07/24/17 20:03 - Related Data Home Medications Medication Instructions Recorded Confirmed Citalopram [CeleXA] 20 mg PO DAILY 01/27/17 07/25/17 Dicyclomine [Bentyl] 20 mg PO QID 01/27/17 07/25/17 Lisinopril [Zestril] 5 mg PO DAILY 01/27/17 07/25/17 Ranitidine HCl [Zantac] 300 mg PO DAILY 01/27/17 07/25/17 Topiramate [Topamax] 25 mg PO DAILY 01/27/17 07/25/17 rOPINIRole [Requip] 2 mg PO HS 01/27/17 07/25/17 Previous Rx's Medication Instructions Recorded ALPRAZolam [Xanax 0.5 MG Tablet] 0.5 mg PO BID #20 03/17/17 Tramadol HCl [Ultram] 50 mg PO Q8H PRN #20 03/17/17 Allergies Allergy/AdvReac Type Severity Reaction Status Date / Time Penicillins [PCN] Allergy See Verified 01/27/17 21:40 Comments morphine AdvReac Itching Verified 01/27/17 21:40 Past Medical History - Past Medical History Medical history: Reports: coronary artery disease, hypertension, myocardial infarction, other Surgical history: Reports: non-contributory Psychiatric history: Reports: depression, prior suicide attempt RE DYE HAND history: Reports: no RE DYE HAND history - Social History Smoking Status: Current every day smoker Smokeless Tobacco Status: No Alcohol use: Reports: none Drug use: Reports: none Course Vital Signs Temperature 98.1 F 07/24/17 20:01 Pulse Rate 95 07/24/17 20:01 Respiratory Rate 18 07/24/17 20:01 Blood Pressure 157/103 07/24/17 20:01 O2 Sat by Pulse Oximetry 99 07/24/17 20:01 Temperature 98.1 F 07/27/17 06:48 Pulse Rate 72 07/27/17 06:48 Respiratory Rate 16 07/27/17 06:48 Blood Pressure 126/82 07/27/17 06:48 O2 Sat by Pulse Oximetry 98 07/27/17 06:48 Oxygen Delivery Oxygen Delivery Room Air Medical Decision Making - Lab Data Result diagrams: 07/24/17 20:59 07/26/17 03:35 Lab Results 07/24/17 07/24/17 07/24/17 Range/Units 20:06 20:32 20:59 WBC (4.3-11.1) K/mcL RBC (3.82-4.97) M/mcL Hgb (11.5-15.4) g/dL Hct (35.3-44.9) % MCV (83.0-100.0) fL MCH (28.0-33.3) pg MCHC (31.6-35.5) g/dL RDW (11.5-14.5) % Plt Count (140-400) K/mcL MPV (9.4-12.4) fL Immature Gran % (0-4) % Seg Neutrophils % % Lymphocytes % % Monocytes % % Eosinophils % % Basophils % % Neutrophils # (1.6-8.9) K/mcL Lymphocytes # (0.6-4.6) K/mcL Monocytes # (0.0-1.3) K/mcL Eosinophils # (0.0-0.6) K/mcL Basophils # (0.0-0.2) K/mcL Sodium 141 (136-145) mEq/L Potassium 3.3 L (3.5-5.1) mEq/L Chloride 104 (98-107) mEq/L Carbon Dioxide 30 H (23-29) mEq/L BUN 16 (8-23) mg/dL Creatinine 0.81 (0.60-1.20) mg/dL Est GFR ( Amer) > 60 (> 60) Est GFR (Non-Af Amer) > 60 (> 60) BUN/Creatinine Ratio 20 (6-26) Glucose 160 H (70-105) mg/dL POC Glucose 195 H (58-89) Calculated Osmolality 297 (280-300) Calcium 9.3 (8.6-10.3) mg/dL Troponin I (< 0.04) ng/mL Urine Color Dark Yellow (Yellow) Urine Clarity Turbid A (Clear) Urine pH 6.0 (5.0-8.0) pH Units Ur Specific [place] > 1.030 H (1.010-1.025) Urine Protein 30 H (Neg-Trace) mg/dL Urine Glucose (UA) 250 H (Normal) mg/dL Urine Ketones Trace H (Negative) mg/dL Urine Blood Negative (Negative) Urine Nitrite Negative (Negative) Urine Bilirubin Small H (Negative) Urine Urobilinogen Normal (Normal) mg/dL Ur Leukocyte Esterase Negative (Negative) Urine Microscopic RBC 0-3 (0-3) per hpf Urine Microscopic WBC 5-15 H (0-3) per hpf Ur Squamous Epith Cells Many H (None-Few) per lpf Urine Bacteria None Seen (None-Few) per hpf Hyaline Casts Few (None-Few) per lpf Urine Yeast Test Not Performed Ur Culture Indicated? NO (NO) 07/24/17 07/24/17 Range/Units 20:59 20:59 WBC 10.3 (4.3-11.1) K/mcL RBC 4.57 (3.82-4.97) M/mcL Hgb 14.4 (11.5-15.4) g/dL Hct 44.0 (35.3-44.9) % MCV 96.3 (83.0-100.0) fL MCH 31.5 (28.0-33.3) pg MCHC 32.7 (31.6-35.5) g/dL RDW 17.1 H (11.5-14.5) % Plt Count 278 (140-400) K/mcL MPV 9.8 (9.4-12.4) fL Immature Gran % 0.3 (0-4) % Seg Neutrophils % 68.4 % Lymphocytes % 22.1 % Monocytes % 8.3 % Eosinophils % 0.4 % Basophils % 0.5 % Neutrophils # 7.1 (1.6-8.9) K/mcL Lymphocytes # 2.3 (0.6-4.6) K/mcL Monocytes # 0.9 (0.0-1.3) K/mcL Eosinophils # 0.0 (0.0-0.6) K/mcL Basophils # 0.1 (0.0-0.2) K/mcL Sodium (136-145) mEq/L Potassium (3.5-5.1) mEq/L Chloride (98-107) mEq/L Carbon Dioxide (23-29) mEq/L BUN (8-23) mg/dL Creatinine (0.60-1.20) mg/dL Est GFR ( Amer) (> 60) Est GFR (Non-Af Amer) (> 60) BUN/Creatinine Ratio (6-26) Glucose (70-105) mg/dL POC Glucose (58-89) Calculated Osmolality (280-300) Calcium (8.6-10.3) mg/dL Troponin I < 0.03 (< 0.04) ng/mL Urine Color (Yellow) Urine Clarity (Clear) Urine pH (5.0-8.0) pH Units Ur Specific [place] (1.010-1.025) Urine Protein (Neg-Trace) mg/dL Urine Glucose (UA) (Normal) mg/dL Urine Ketones (Negative) mg/dL Urine Blood (Negative) Urine Nitrite (Negative) Urine Bilirubin (Negative) Urine Urobilinogen (Normal) mg/dL Ur Leukocyte Esterase (Negative) Urine Microscopic RBC (0-3) per hpf Urine Microscopic WBC (0-3) per hpf Ur Squamous Epith Cells (None-Few) per lpf Urine Bacteria (None-Few) per hpf Hyaline Casts (None-Few) per lpf Urine Yeast Ur Culture Indicated? (NO) Attestation Statement - Attestation Attestation: I examined this patient and my medical decision-making was reviewed with the Resident Physician. I agree with the documented findings, disposition and treatment plan as described except to the extent set forth below. [id number] time provided Patient arrives by EMS. She apparently had a home wellness check and was found to be confused. The patient denies symptoms at the time of my exam and appears in no acute distress. She is alert and lucid and appropriate
--- NOTE | 2017-07-24 20:13 | Emergency Department Note ---
Disposition Clinical Impression: Confusion, NPH (normal pressure hydrocephalus), Gait instability Disposition: Admitted As Inpatient Condition: Fair Time of Disposition: 23:03 General Adult HPI - General Chief complaint: ED Fall Stated complaint: Fall Time Seen by Provider: 07/24/17 20:03 Source: EMS Limitations: no limitations Nursing Notes Reviewed: Yes Vital Signs Reviewed: Yes - History of Present Illness HPI Narrative: 67-year-old female brought in by EMS for fall and intermittent confusion started earlier today. Patient states she fell earlier today unsure if she hit her head. She states that the last time she fell she was down for at least 3 days before she was found. She cannot remember when that was. Patient states she is feels otherwise fine. And she cannot remember the medication she is on, or what medical problems she has. States she does live alone at home. She takes care of herself drives her own truck and gets her own groceries. Pain Scale: 0 - Related Data Home Medications Medication Instructions Recorded Confirmed Aspirin 81 mg PO DAILY 01/27/17 03/14/17 Atorvastatin [Lipitor] 20 mg PO HS 01/27/17 03/14/17 Citalopram [CeleXA] 20 mg PO DAILY 01/27/17 03/14/17 Dicyclomine [Bentyl] 20 mg PO QID 01/27/17 03/14/17 Lisinopril [Zestril] 5 mg PO DAILY 01/27/17 03/14/17 Potassium Chloride [K-Tab ER] 30 meq PO DAILY 01/27/17 03/14/17 Ranitidine HCl [Zantac] 300 mg PO DAILY 01/27/17 03/14/17 SUMAtriptan succinate [Imitrex] 50 mg PO Q2H PRN MDD 200 01/27/17 03/14/17 Topiramate [Topamax] 25 mg PO DAILY 01/27/17 03/14/17 rOPINIRole [Requip] 2 mg PO HS 01/27/17 03/14/17 Previous Rx's Medication Instructions Recorded ALPRAZolam [Xanax 0.5 MG Tablet] 0.5 mg PO BID #20 03/17/17 Carvedilol [Coreg] 12.5 mg PO BIDWM #0 03/17/17 Ciprofloxacin [Cipro] 500 mg PO BID #20 tab 03/17/17 Tramadol HCl [Ultram] 50 mg PO Q8H PRN #20 03/17/17 Allergies Allergy/AdvReac Type Severity Reaction Status Date / Time Penicillins [PCN] Allergy See Verified 01/27/17 21:40 Comments morphine AdvReac Itching Verified 01/27/17 21:40 All systems ED: reviewed and negative except as stated. Review of Systems: As Per HPI Constitutional: Denies: fever Eyes: Denies: vision change ENT ED: Denies: congestion Cardiovascular: Denies: chest pain Respiratory: Denies: cough Gastrointestinal: Denies: abdominal pain, nausea, vomiting, diarrhea Genitourinary: Denies: urgency, dysuria, frequency Past Medical History - Past Medical History Attestation: Yes The following information was validated with the patient. Source: patient, nursing notes reviewed Medical history: Reports: coronary artery disease, hypertension, myocardial infarction, other Surgical history: Reports: non-contributory Psychiatric history: Reports: depression, prior suicide attempt CO DIRECTOR history: Reports: no CO DIRECTOR history - Social History Smoking Status: Current every day smoker Smokeless Tobacco Status: No Alcohol use: Reports: none Drug use: Reports: none Physical Exam Vital Signs Temperature 98.1 F 07/24/17 20:01 Pulse Rate 95 07/24/17 20:01 Respiratory Rate 18 07/24/17 20:01 Blood Pressure 157/103 07/24/17 20:01 O2 Sat by Pulse Oximetry 99 07/24/17 20:01 Temperature 98.1 F 07/24/17 20:01 Pulse Rate 95 07/24/17 20:01 Respiratory Rate 18 07/24/17 20:01 Blood Pressure 157/103 07/24/17 20:01 O2 Sat by Pulse Oximetry 07/24/17 20:01 Oxygen Delivery Oxygen Delivery Room Air 67-year-old female who is alert and oriented 3 and in no acute distress. Patient is afebrile has normal vital signs with the exception of her blood pressure which is 157/103. Patient is nontoxic appearing. - General Limitations: no limitations General appearance: alert, in no apparent distress - Head Head exam: atraumatic, normocephalic, normal inspection - Eye Eye exam: Present: normal appearance, PERRL, EOMI - ENT ENT exam: normal exam, normal oropharynx, mucous membranes moist - Neck Neck exam: Present: normal inspection, full ROM, trachea midline - Chest Chest inspection: Present: normal inspection, symmetric chest wall rise - Respiratory Respiratory exam: Present: normal lung sounds bilaterally - Cardiovascular Cardiovascular exam: Present: regular rate, normal rhythm, normal heart sounds - Abdominal Exam Abdominal exam: Present: soft, Non-Tender. Absent: tenderness, distention, guarding, rebound, rigidity - Extremities Exam Extremities exam: Present: normal inspection, full ROM, normal capillary refill. Absent: tenderness, pedal edema, joint swelling, calf tenderness - Back Exam Back exam: Present: normal inspection, full ROM. Absent: tenderness, CVA tenderness (R), CVA tenderness (L) - Neurological Exam Neurological exam: Present: alert, oriented X3, motor sensory deficit - Skin Skin exam: Present: warm, dry, intact, normal color. Absent: rash, diaphoresis , erythema, pallor, mottled Course Vital Signs Temperature 98.1 F 07/24/17 20:01 Pulse Rate 95 07/24/17 20:01 Respiratory Rate 18 07/24/17 20:01 Blood Pressure 157/103 07/24/17 20:01 O2 Sat by Pulse Oximetry 99 07/24/17 20:01 Temperature 98.7 F 07/25/17 00:57 Pulse Rate 103 07/25/17 00:57 Respiratory Rate 15 07/25/17 00:57 Blood Pressure 138/81 07/25/17 00:57 O2 Sat by Pulse Oximetry 95 07/25/17 00:57 Oxygen Delivery Oxygen Delivery Room Air Medical Decision Making - MDM Narrative Medical decision making narrative: Intermittent confusion. Patient is alert and oriented 3 but has intermittent periods where she is clearly confused. Patient states she was going to call home on her cell phone and pulled out her home phone which she has with her. Patient's labs were unremarkable except for potassium of 3.3 and potassium supplementation ordered. No UTI. Chest x-ray was changed from 2 view to portable secondary to patient being unable to ambulate without instability. Head CT ordered Head CT shows signs of possible normal pressure hydrocephalus. Patient has no urinary incontinence. Current plan is for admission for confusion, gait instability causing fall risk. Patient lives alone. Patient accepts decision for admission Dr. Summers the hospitalist has accepted patient for admission. - Lab Data Lab results reviewed: Yes I reviewed the patient's lab results. Lab results narrative: Short CBC 07/24/17 Range/Units 20:59 WBC 10.3 (4.3-11.1) K/mcL Hgb 14.4 (11.5-15.4) g/dL Hct 44.0 (35.3-44.9) % Plt Count 278 (140-400) K/mcL Neutrophils # 7.1 (1.6-8.9) K/mcL BMP 07/24/17 Range/Units 20:59 Sodium 141 (136-145) mEq/L Potassium 3.3 L (3.5-5.1) mEq/L Chloride 104 (98-107) mEq/L Carbon Dioxide 30 H (23-29) mEq/L BUN 16 (8-23) mg/dL Creatinine 0.81 (0.60-1.20) mg/dL Glucose 160 H (70-105) mg/dL Calcium 9.3 (8.6-10.3) mg/dL Cardiac Enzymes 07/24/17 Range/Units 20:59 Troponin I < 0.03 (< 0.04) ng/mL Urine 07/24/17 Range/Units 20:32 Urine Color Dark Yellow (Yellow) Urine Clarity Turbid A (Clear) Urine pH 6.0 (5.0-8.0) pH Units Ur Specific [place] > 1.030 H (1.010-1.025) Urine Protein 30 H (Neg-Trace) mg/dL Urine Glucose (UA) 250 H (Normal) mg/dL Result diagrams: 07/24/17 20:59 07/24/17 20:59 Lab Results 07/24/17 07/24/17 07/24/17 Range/Units 20:32 20:59 20:59 WBC 10.3 (4.3-11.1) K/mcL RBC 4.57 (3.82-4.97) M/mcL Hgb 14.4 (11.5-15.4) g/dL Hct 44.0 (35.3-44.9) % MCV 96.3 (83.0-100.0) fL MCH 31.5 (28.0-33.3) pg MCHC 32.7 (31.6-35.5) g/dL RDW 17.1 H (11.5-14.5) % Plt Count 278 (140-400) K/mcL MPV 9.8 (9.4-12.4) fL Immature Gran % 0.3 (0-4) % Seg Neutrophils % 68.4 % Lymphocytes % 22.1 % Monocytes % 8.3 % Eosinophils % 0.4 % Basophils % 0.5 % Neutrophils # 7.1 (1.6-8.9) K/mcL Lymphocytes # 2.3 (0.6-4.6) K/mcL Monocytes # 0.9 (0.0-1.3) K/mcL Eosinophils # 0.0 (0.0-0.6) K/mcL Basophils # 0.1 (0.0-0.2) K/mcL Sodium 141 (136-145) mEq/L Potassium 3.3 L (3.5-5.1) mEq/L Chloride 104 (98-107) mEq/L Carbon Dioxide 30 H (23-29) mEq/L BUN 16 (8-23) mg/dL Creatinine 0.81 (0.60-1.20) mg/dL Est GFR ( Amer) > 60 (> 60) Est GFR (Non-Af Amer) > 60 (> 60) BUN/Creatinine Ratio 20 (6-26) Glucose 160 H (70-105) mg/dL Calculated Osmolality 297 (280-300) Calcium 9.3 (8.6-10.3) mg/dL Troponin I (< 0.04) ng/mL Urine Color Dark Yellow (Yellow) Urine Clarity Turbid A (Clear) Urine pH 6.0 (5.0-8.0) pH Units Ur Specific [place] > 1.030 H (1.010-1.025) Urine Protein 30 H (Neg-Trace) mg/dL Urine Glucose (UA) 250 H (Normal) mg/dL Urine Ketones Trace H (Negative) mg/dL Urine Blood Negative (Negative) Urine Nitrite Negative (Negative) Urine Bilirubin Small H (Negative) Urine Urobilinogen Normal (Normal) mg/dL Ur Leukocyte Esterase Negative (Negative) Urine Microscopic RBC 0-3 (0-3) per hpf Urine Microscopic WBC 5-15 H (0-3) per hpf Ur Squamous Epith Cells Many H (None-Few) per lpf Urine Bacteria None Seen (None-Few) per hpf Hyaline Casts Few (None-Few) per lpf Urine Yeast Test Not Performed Ur Culture Indicated? NO (NO) 07/24/17 Range/Units 20:59 WBC (4.3-11.1) K/mcL RBC (3.82-4.97) M/mcL Hgb (11.5-15.4) g/dL Hct (35.3-44.9) % MCV (83.0-100.0) fL MCH (28.0-33.3) pg MCHC (31.6-35.5) g/dL RDW (11.5-14.5) % Plt Count (140-400) K/mcL MPV (9.4-12.4) fL Immature Gran % (0-4) % Seg Neutrophils % % Lymphocytes % % Monocytes % % Eosinophils % % Basophils % % Neutrophils # (1.6-8.9) K/mcL Lymphocytes # (0.6-4.6) K/mcL Monocytes # (0.0-1.3) K/mcL Eosinophils # (0.0-0.6) K/mcL Basophils # (0.0-0.2) K/mcL Sodium (136-145) mEq/L Potassium (3.5-5.1) mEq/L Chloride (98-107) mEq/L Carbon Dioxide (23-29) mEq/L BUN (8-23) mg/dL Creatinine (0.60-1.20) mg/dL Est GFR ( Amer) (> 60) Est GFR (Non-Af Amer) (> 60) BUN/Creatinine Ratio (6-26) Glucose (70-105) mg/dL Calculated Osmolality (280-300) Calcium (8.6-10.3) mg/dL Troponin I < 0.03 (< 0.04) ng/mL Urine Color (Yellow) Urine Clarity (Clear) Urine pH (5.0-8.0) pH Units Ur Specific [place] (1.010-1.025) Urine Protein (Neg-Trace) mg/dL Urine Glucose (UA) (Normal) mg/dL Urine Ketones (Negative) mg/dL Urine Blood (Negative) Urine Nitrite (Negative) Urine Bilirubin (Negative) Urine Urobilinogen (Normal) mg/dL Ur Leukocyte Esterase (Negative) Urine Microscopic RBC (0-3) per hpf Urine Microscopic WBC (0-3) per hpf Ur Squamous Epith Cells (None-Few) per lpf Urine Bacteria (None-Few) per hpf Hyaline Casts (None-Few) per lpf Urine Yeast Ur Culture Indicated? (NO) - Radiology Data Radiology results reviewed: Yes I reviewed the patient's radiology results. Head CT 07/24/17 20:32 IMPRESSION: No acute intracranial abnormality. Ventricular enlargement is out proportion to sulcal prominence and an element of NPH should be considered. D/ / Krishna Carson MD / Krishna Carson MD Interpreting Provider: Krishna Carson MD Chest X-Ray 07/24/17 21:12 IMPRESSION: No acute abnormality detected. D/ / Dale Basurto MD / Dale Basurto MD Interpreting Provider: Dale Basurto MD - EKG Data EKG #1 EKG attestation: Yes I reviewed and interpreted this EKG. EKG results narrative: EKG taken at 2017 at 2008 hrs. shows a sinus rhythm at a rate of 86 bpm with no acute ST elevations or depressions any leads, no QS widened QT prolongation. EKG has signs of left bundle branch block. No previous EKG for comparison.
[2017-07-24 20:39] LABS: Bilirubin,Urine Small (Negative); Blood,Urine Negative (Negative); Clarity,Urine Turbid (Clear); Color,Urine Dark Yellow (Yellow); Glucose,Urine (UA) 250 mg/dL (Normal); Ketones,Urine Trace mg/dL (Negative); Leukocyte Esterase,Urine Negative (Negative); Nitrite,Urine Negative (Negative); Protein,Urine 30 mg/dL (Neg-Trace); Specific Gravity,Urine > 1.030 (1.010-1.025); Urobilinogen,Urine Normal (Normal)
[2017-07-24 20:40] LABS: Bacteria,Urine None Seen per hpf (None-Few); Hyaline Casts,Urine Few per lpf (None-Few); RBC,Urine 0-3 per hpf (0-3); Squamous Epithelial Cell,Urine Many per lpf (None-Few)
[2017-07-24 21:28] LABS: Basophils # 0.1 K/mcL (0.0-0.2); Basophils % 0.5 %; Eosinophils % 0.4 %; Hemoglobin 14.4 g/dL (11.5-15.4); Immature Granulocytes % 0.3 % (0-4); Lymphocytes # 2.3 K/mcL (0.6-4.6); Lymphocytes % 22.1 %; Mean Corpuscular HGB Conc 32.7 g/dL (31.6-35.5); Mean Corpuscular Hemoglobin 31.5 pg (28.0-33.3); Mean Corpuscular Volume 96.3 fL (83.0-100.0); Mean Platelet Volume 9.8 fL (9.4-12.4); Monocytes # 0.9 K/mcL (0.0-1.3); Monocytes % 8.3 %; Neutrophils # 7.1 K/mcL (1.6-8.9); Platelet Count 278 K/mcL (140-400); Red Blood Count 4.57 M/mcL (3.82-4.97); Red Cell Distribution Width 17.1 % (11.5-14.5); Segmented Neutrophils % 68.4 %
[2017-07-24 21:46] LABS: BUN/Creatinine Ratio 20 (6-26); Blood Urea Nitrogen 16 mg/dL (8-23); Calcium 9.3 mg/dL (8.6-10.3); Carbon Dioxide 30 mEq/L (23-29); Chloride 104 mEq/L (98-107); Glucose 160 mg/dL (70-105); Osmolality,Calculated 297 (280-300); Potassium 3.3 mEq/L (3.5-5.1); Sodium 141 mEq/L (136-145); eGFR For African Americans > 60 (> 60); eGFR For Non-African Americans > 60 (> 60)
[2017-07-24] MEDS ORDERED: 0.9 % Sodium Chloride 1,000 ML IVC ONE (22:09)
[2017-07-25] MEDS ORDERED: Naloxone 0.4 MG/ML INJ IVP PRN (00:34)
--- NOTE | 2017-07-25 00:34 | Internal Med History&Physical ---
Date of Encounter: 07/25/17 Time of Encounter: 01:15 Assessment and Plan (1) Altered mental status Current visit: Yes Status: Acute Unclear baseline. Reviewing her records from her prior admission, this appears to be chronic for the patient. She may have underlying dementia. For now, we will place her in the hospital for observation. No clear underlying cause is able to be identified. She does have leukocytes in her urine but leuk esterase is negative. WBC count is also normal. No clinical signs of UTI. Will check TSH. Other causes could be normal pressure hydrocephalus given the appearance of the ventricles on the patient's head CT scan. Patient is not safe to stay at home alone in her current condition. We will consult social science analyst Qualifiers: Altered mental status type: delirium Qualified Code(s): R41.0 - Disorientation, unspecified (2) NPH (normal pressure hydrocephalus) Current visit: Yes Status: Suspected Patient does appear to have some signs suggestive of normal pressure hydrocephalus including gait instability, confusion. However, she does not report any incontinence. Will consult neurology to evaluate patient. (3) Gait instability Current visit: Yes Status: Acute Consult physical therapy. Fall precautions. She does appear to be dehydrated with high specific gravity of her urine. Will treat with IV hydration. Internal Medicine - H&P: HPI Chief complaint: Fall, confusion Admitted From: Emergency Dept Plans for Post Hospital Care: Transfer Senior Care Facility History of present illness: Ms. Bowles is a 67 year old female patient with history of coronary artery disease hypertension, [place] who lives alone presented to the ER after a fall. She says that her neighbor had convinced her to come to the ER. She presently denies any pain or shortness of breath but is very confused. Unable to provide much history beyond the fact that she fell. Denies any shortness of breath or chest pain. Denies any urinary incontinence. She has having generalized weakness. She had been hospitalized in February 2017 with similar presentation at which time he was diagnosed with UTI. She was discharged to care home facility at that time. She does complain of a headache. No blurred vision. No focal weakness or numbness. No speech difficulties. Past Med Surg Social Fam HX - Past Medical History Source: old records reviewed Medical history: coronary artery disease, hypertension, myocardial infarction, other Psychiatric history: depression, prior suicide attempt - Past Surgical History Surgical History: non-contributory - Social History Smoking Status: Current every day smoker Smokeless Tobacco Status: No Alcohol use: none Drug use: none - Family History Mother Hx Family Cardiac Disorders: Yes Internal Medicine - H&P: Meds Aspirin 81 mg PO DAILY 01/27/17 [History] Atorvastatin [Lipitor] 20 mg PO HS 01/27/17 [History] Citalopram [CeleXA] 20 mg PO DAILY 01/27/17 [History] Dicyclomine [Bentyl] 20 mg PO QID 01/27/17 [History] Lisinopril [Zestril] 5 mg PO DAILY 01/27/17 [History] Potassium Chloride [K-Tab ER] 30 meq PO DAILY 01/27/17 [History] Ranitidine HCl [Zantac] 300 mg PO DAILY 01/27/17 [History] SUMAtriptan succinate [Imitrex] 50 mg PO Q2H PRN MDD 200 01/27/17 [History] Topiramate [Topamax] 25 mg PO DAILY 01/27/17 [History] rOPINIRole [Requip] 2 mg PO HS 01/27/17 [History] ALPRAZolam [Xanax 0.5 MG Tablet] 0.5 mg PO BID #20 03/17/17 [Rx] Carvedilol [Coreg] 12.5 mg PO BIDWM #0 03/17/17 [Rx] Ciprofloxacin [Cipro] 500 mg PO BID #20 tab 03/17/17 [Rx] Tramadol HCl [Ultram] 50 mg PO Q8H PRN #20 03/17/17 [Rx] 3 Allergy/AdvReac Type Severity Reaction Status Date / Time Penicillins [PCN] Allergy See Verified 01/27/17 21:40 Comments morphine AdvReac Itching Verified 01/27/17 21:40 ROS unobtainable: due to mental status All Systems PM: A 10-system review of systems was performed and is negative for pertinent findings except as documented above in the HPI. - Constitutional Constitutional: no chills, no fever(s), no night sweats - EENT Eyes: no change in vision, no discharge, no pain, no photophobia Ears: no ear discharge, no ear pain, no tinnitus Nose, mouth and throat: no dysphagia, no nasal discharge, no neck pain, no sore throat - Cardiovascular Cardiovascular ROS IM: no chest pain, no diaphoresis, no dyspnea, no lightheadedness, no palpitations, no syncope - Respiratory Respiratory: no cough, no dyspnea, no wheezing, no excessive phlegm production - Gastrointestinal Gastrointestinal: no abdominal pain, no diarrhea, no hematemesis, no hematochezia, no melena, no nausea, no vomiting - Genitourinary Genitourinary: no change in urinary stream, no dysuria, no flank pain, no hematuria - Musculoskeletal Musculoskeletal ROS IM: no numbness, no tingling - Integumentary Integumentary IM: no rash, no unusual bruising - Neurological Neurological ROS: no confusion, no convulsions, no focal weakness, no numbness, no tingling, no tremor(s) - Hematologic/Lymphatic Hematologic/Lymphatic: no easy bruising - Constitutional Vitals: Temp Pulse Resp BP Pulse Ox 98.1 F 95 18 0/0 99 07/24/17 20:01 07/24/17 20:01 07/25/17 00:11 07/25/17 00:11 07/24/17 20:01 General appearance: Present: cooperative, A&O X 1, no acute distress. Absent: answers questions appropriately - Eye Eye exam: Present: EOMI, PERRL, conjuntiva pink, sclera anicteric - Neck Neck exam general surgery: Present: supple, trachea midline. Absent: lymphadenopathy - Respiratory Respiratory exam: Present: CTAB. Absent: accessory muscle use, rales, rhonchi, wheezes - Cardiovascular Cardiovascular exam: Present: RRR, +S1, +S2. Absent: diastolic murmur, gallop, rubs, systolic murmur - GI/Abdominal GI/Abdominal exam: Present: normal bowel sounds, soft, no peritoneal signs. Absent: distended, tenderness - Extremities Exam Extremities exam: Present: warm, radial pulses palpable and symmetrical. Absent : calf tenderness, cyanotic, pedal edema - Neurological Exam Neurological exam: Present: alert, CN II-XII intact, no focal deficits, strengths equal and symetr throughout. Absent: facial droop, speech deficit - Skin Skin exam: Present: dry, intact Internal Med - H&P Results - Labs CBC & Chem 7: 07/24/17 20:59 07/24/17 20:59 - Impressions Impressions Head CT 07/24/17 20:32 IMPRESSION: No acute intracranial abnormality. Ventricular enlargement is out proportion to sulcal prominence and an element of NPH should be considered. D/ / Krishna Carson MD / Krishna Carson MD Interpreting Provider: Krishna Carson MD Chest X-Ray 07/24/17 21:12 IMPRESSION: No acute abnormality detected. D/ / Dale Basurto MD / Dale Basurto MD Interpreting Provider: Dale Basurto MD
[2017-07-25] MEDS: 0.9 % Sodium Chloride 1,000 ML IVC SCH ×2 (02:53→18:28)
--- NOTE | 2017-07-25 08:51 | Internal Med Progress Note ---
Addendum entered and electronically signed by Patrick Marquis DO 07/25/17 13:07: Evaluations this afternoon: - Physical therapy recommend SNF/ECF - Occupational therapy recommend home with 24 hour supervision - Finance Consultant consulted for d/c planning Original Note: <Patrick Marquis - Last Filed: 07/25/17 13:03> Date of Encounter: 07/25/17 Time of Encounter: 08:51 - Assessment and plan (1) Altered mental status Current Visit: Yes Status: Acute Assessment and plan: Unclear etiology at this time - Working through NPH vs dehydration vs baseline status Unknown baseline, last outpatient appointment was 05/25/17 that stated she was AAOx3 Today she is AA0x1, fixated on her son coming and thinking this is the end for her No s/sx for UTI, urine neg Head CT showing no acute changes Electrolytes WNL TSH WNL History of NPH back in January 2016 Evaluated at [facility] at that time - No LP done and thought she was a poor candidate for shunt during her stay Followed Dr. Delgado as an outpatient since that discharge without any further intervention CT scan today relatively unchanged from previously - still showing enlarged ventricles Plan: Continue IVF therapy Neuro consulted for further evaluation Fall precautions Social work consulted for likely placement Qualifiers: Altered mental status type: disorientation Qualified Code(s): R41.0 - Disorientation, unspecified (2) NPH (normal pressure hydrocephalus) Current Visit: Yes Status: Suspected Assessment and plan: History of NPH back in January 2016 - See above (3) Unwitnessed fall Current Visit: Yes Status: Acute Assessment and plan: Live at home alone Unwitnessed fall Abrasion seen on right frontal region Patient unaware if she fell at all Head CT neg for acute abnormalities but suggestive of NPH Considering etiology from NPH vs dehydration vs deconditioning Consulted neurology for further evaluation (4) Migraine Current Visit: No Status: Chronic Assessment and plan: Chronic issue. Continue home meds for now. Imitrex with Topamax. Tramadol as well. Qualifiers: Migraine type: chronic without aura Status migrainosus presence: without status migrainosus Intractability: not intractable Qualified Code(s): G43.709 - Chronic migraine without aura, not intractable, without status migrainosus (5) HTN (hypertension) Current Visit: Yes Status: Chronic Assessment and plan: Well controlled at this time Continue home meds - Zestril and Coreg unchanged Qualifiers: Hypertension type: essential hypertension Qualified Code(s): I10 - Essential (primary) hypertension (6) CAD (coronary artery disease) Current Visit: Yes Status: Chronic Assessment and plan: Chronic. Continue Coreg, ASA, Lipitor, Zestril unchanged Qualifiers: Coronary Disease-Associated Artery/Lesion type: unspecified vessel or lesion type [place] vs. transplanted heart: [place] heart Associated angina: without angina Qualified Code(s): I25.10 - Atherosclerotic heart disease of [place] coronary artery without angina pectoris (7) Crohn's disease Current Visit: Yes Status: Chronic Assessment and plan: Continue home meds. Appears to be stable at this time Qualifiers: Gastrointestinal tract location: unspecified location Digestive disease complication type: without complication Qualified Code(s): K50.90 - Crohn's disease, unspecified, without complications (8) Depression Current Visit: Yes Status: Chronic Assessment and plan: Continue home medications Qualifiers: Depression Type: unspecified Qualified Code(s): F32.9 - Major depressive disorder, single episode, unspecified (9) Generalized anxiety disorder Current Visit: Yes Status: Acute (10) History of drug overdose Current Visit: Yes Status: Chronic Assessment and plan: History of admission to [facility] and [facility] facility back in January 2016 after ingesting Xanax, opiods and amphetamines No history of OD since then (11) DVT prophylaxis Current Visit: Yes Status: Acute Assessment and plan: EPCDs - Subjective Interval history: Admitted for AMS after an unwitnessed fall at home, possible NPH Plan is for neuro to evaluate today Patient is resting in bed this morning States "I don't know what to do and I think this is it for me", keeps asking for her son Knows she is in hospital but not aware of day or year - unknown baseline Only complaint this morning is diffuse headache that is dull, no other concerns at this time - Constitutional Vitals: Temp Pulse Resp BP Pulse Ox 98.0 F 107 15 133/81 97 07/25/17 07:51 07/25/17 07:51 07/25/17 07:51 07/25/17 07:51 07/25/17 07:51 General appearance: Present: cooperative, A&O X 1, no acute distress. Absent: answers questions appropriately - Expanded Head Exam Head exam expanded: Present: abrasion (right frontal region) - Eye Eye exam: Present: EOMI, normal appearance, conjuntiva pink, sclera anicteric - ENT ENT exam: Present: mucous membranes dry - Neck Neck exam general surgery: Present: supple, trachea midline - Respiratory Respiratory exam: Present: CTAB. Absent: respiratory distress - Cardiovascular Cardiovascular exam: Present: RRR, +S1, +S2 - GI/Abdominal GI/Abdominal exam: Present: normal bowel sounds, soft. Absent: tenderness - Extremities Exam Extremities exam: Present: warm. Absent: calf tenderness, pedal edema, tenderness - Neurological Exam Neurological exam: Present: alert, altered, strengths equal and symetr throughout. Absent: pronater drift, facial droop, speech deficit - Psychiatric Psychiatric exam: Present: anxious (focused on her son coming and worried that this is the end) - Skin Skin exam: Present: dry, warm Internal Medicine: Result - Labs CBC & Chem 7: 07/24/17 20:59 07/24/17 20:59 - VTE Documentation of Mechanical Device: Intermittent pneumatic compression device Consult Discharge Plan - Plan Referrals: Kj Paris MD [Primary Care Provider] - <Stephen Corrales - Last Filed: 07/25/17 19:19> Date of Encounter: 07/25/17 - Constitutional Vitals: Temp Pulse Resp BP Pulse Ox 98.0 F 89 14 143/88 97 07/25/17 15:09 07/25/17 15:09 07/25/17 15:09 07/25/17 15:09 07/25/17 15:09 Internal Medicine: Result - Labs CBC & Chem 7: 07/24/17 20:59 07/24/17 20:59 - Attending Attestation I examined this patient and my medical decision-making was reviewed with the Resident Physician on 07/25/17. I agree with the documented findings, disposition and treatment plan as described except to the extent set forth below. Ms Bowles was admitted early today with confusion and concern for NPH. Exam Alert Comfortable Heart reg No wheeze Agree with plan as above.
--- NOTE | 2017-07-25 14:41 | Neurology - Consult Note ---
Date of Encounter: 07/25/17 Time of Encounter: 07:45 Assessment and Plan (1) Altered mental status Current Visit: Yes Status: Acute Patient has been admitted with mental status changes and fall not able to give much detailed information and history about her symptoms except that she had a fall and she noted to have some confusion CT scan of the head shows dilated ventricles without any other abnormality Concerning her mental status changes V do need to exclude any central and infectious etiology recommend checking metabolic as well as infectious workup The same time get an MRI of the brain and particularly to look for fourth ventricle and any other structural abnormalities that may be causing any structural damage MRIs negative and distal shows dilated ventricles she would probably need spinal tap high-volume to assess her gait and balance at the same time we have to check other reversible causes of mental status changes as well Qualifiers: Altered mental status type: disorientation Qualified Code(s): R41.0 - Disorientation, unspecified (2) Dilated ventricle Current Visit: Yes Status: Acute (3) Gait instability Current Visit: Yes Status: Acute History of Present Illness HPI: Ms. Bowles is a 67 year old female with history of coronary artery disease hypertension, [place], admitted with after a fall. She says that her neighbor had convinced her to come to the ER. She presently denies any pain or shortness of breath but is very confused. Unable to provide much history beyond the fact that she fell. Denies any shortness of breath or chest pain. Denies any urinary incontinence. She has having generalized weakness. She had been hospitalized in February 2017 with similar presentation at which time he was diagnosed with UTI. She was discharged to intermediate facility. She does complain of a headache. No blurred vision. No focal weakness or numbness. No speech difficulties. Past Med Surg Social Fam HX - Past Medical History Medical history: coronary artery disease, hypertension, myocardial infarction, other Psychiatric history: depression, prior suicide attempt - Past Surgical History Surgical History: non-contributory - Social History Smoking Status: Current every day smoker Smokeless Tobacco Status: No Alcohol use: none Drug use: none - Family History Mother Hx Family Cardiac Disorders: Yes Medications and Allergies Citalopram [CeleXA] 20 mg PO DAILY 01/27/17 [History] Dicyclomine [Bentyl] 20 mg PO QID 01/27/17 [History] Lisinopril [Zestril] 5 mg PO DAILY 01/27/17 [History] Ranitidine HCl [Zantac] 300 mg PO DAILY 01/27/17 [History] Topiramate [Topamax] 25 mg PO DAILY 01/27/17 [History] rOPINIRole [Requip] 2 mg PO HS 01/27/17 [History] ALPRAZolam [Xanax 0.5 MG Tablet] 0.5 mg PO BID #20 03/17/17 [Rx] Tramadol HCl [Ultram] 50 mg PO Q8H PRN #20 03/17/17 [Rx] 3 Allergy/AdvReac Type Severity Reaction Status Date / Time Penicillins [PCN] Allergy See Verified 01/27/17 21:40 Comments morphine AdvReac Itching Verified 01/27/17 21:40 All Systems: A 10-system review of systems was performed and is negative for pertinent findings except as documented above in the HPI. Physical Examination - Vital Signs Vital Signs: Initial Vital Signs Temp Pulse Resp BP Pulse Ox 98.1 F 95 18 157/103 99 07/24/17 20:01 07/24/17 20:01 07/24/17 20:01 07/24/17 20:01 07/24/17 20:01 - Constitutional General appearance: comfortable - Neurologic Sensorimotor examination: intact Detailed motor examination: grossly full strength in all extremities Motor examination - right side: 4/5: deltoids, biceps, triceps, wrist flexion, wrist extension, temporary receptionist, hip flexors, tibialis Anterior, quadriceps, toe extension (EHL), plantarflexion Motor examination - left side: 4/5: deltoids, biceps, triceps, wrist flexion, wrist extension, hip flexors, temporary receptionist, quadriceps, tibialis Anterior, toe extension (EHL), plantarflexion Detailed sensory examination: intact Reflex and gait examination: intact Reflexes: Biceps: 1+, Triceps: 1+, Brachioradialis: 1+, Patella: 1+, Achilles: 1 + Mental Status Examination: awake, alert, oriented to person, oriented to place, follows commands appropriately Cranial nerve examination: PERRL, EOMI, no facial asymmetry is present, no dysarthria Cerebellar examination: no dysmetria Results - Laboratory Findings CBC and BMP: 07/24/17 20:59 07/24/17 20:59 Abnormal lab findings: Abnormal lab results RDW 17.1 % (11.5-14.5) H 07/24/17 20:59 Potassium 3.3 mEq/L (3.5-5.1) L 07/24/17 20:59 Carbon Dioxide 30 mEq/L (23-29) H 07/24/17 20:59 Glucose 160 mg/dL (70-105) H 07/24/17 20:59 Urine Clarity Turbid (Clear) A 07/24/17 20:32 Ur Specific [place] > 1.030 (1.010-1.025) H 07/24/17 20:32 Urine Protein 30 mg/dL (Neg-Trace) H 07/24/17 20:32 Urine Glucose (UA) 250 mg/dL (Normal) H 07/24/17 20:32 Urine Ketones Trace mg/dL (Negative) H 07/24/17 20:32 Urine Bilirubin Small (Negative) H 07/24/17 20:32 Urine Microscopic WBC 5-15 per hpf (0-3) H 07/24/17 20:32 Ur Squamous Epith Cells Many per lpf (None-Few) H 07/24/17 20:32 - Diagnostic Findings Additional findings: CT scan of the head shows dilated ventricles and mild atrophy Consult Discharge Plan - Plan Referrals: Kj Paris MD [Primary Care Provider] -
--- NOTE | 2017-07-25 16:57 | Electrocardiograph Report ---
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
[2017-07-26 04:01] LABS: BUN/Creatinine Ratio 25 (6-26); Blood Urea Nitrogen 16 mg/dL (8-23); Calcium 8.5 mg/dL (8.6-10.3); Carbon Dioxide 27 mEq/L (23-29); Chloride 108 mEq/L (98-107); Glucose 94 mg/dL (70-105); Osmolality,Calculated 287 (280-300); Potassium 3.9 mEq/L (3.5-5.1); Sodium 138 mEq/L (136-145); eGFR For African Americans > 60 (> 60); eGFR For Non-African Americans > 60 (> 60)
[2017-07-26] MEDS: 0.9 % Sodium Chloride 1,000 ML IVC SCH (06:07)
--- NOTE | 2017-07-26 08:12 | Internal Med Progress Note ---
<Patrick Marquis - Last Filed: 07/26/17 11:43> Date of Encounter: 07/26/17 Time of Encounter: 08:11 - Assessment and plan (1) Altered mental status Current Visit: Yes Status: Acute Assessment and plan: Unclear etiology at this time - Unlikely NPH at this time. Possible dehydration vs underlying dementia Unknown baseline, last outpatient appointment was 05/25/17 that stated she was AAOx3 Labs and imaging so far are negative Today she is AA0x1, mostly confabulations and flight of ideas with her son Plan: Continue IVF therapy Neuro following and recommend MRI (pending) Fall precautions Social work consulting, will likely need continued HHC vs ECF on discharge Qualifiers: Altered mental status type: disorientation Qualified Code(s): R41.0 - Disorientation, unspecified (2) Dilated ventricle Current Visit: Yes Status: Acute Assessment and plan: History of NPH back in January 2016 Evaluated at [facility] at that time - No LP done and thought she was a poor candidate for shunt during her stay Followed Dr. Delgado as an outpatient since that discharge without any further intervention CT scan today relatively unchanged from previously - still showing enlarged ventricles - See above (3) Unwitnessed fall Current Visit: Yes Status: Acute Assessment and plan: Live at home alone Unwitnessed fall Abrasion seen on right frontal region Patient unaware if she fell at all Head CT neg for acute abnormalities but suggestive of NPH Considering etiology from NPH vs dehydration vs deconditioning vs dementia PT and OT agree with SNF/ECF placement Neuro following. See above (4) Migraine Current Visit: No Status: Chronic Assessment and plan: Chronic issue. Continue home meds for now. Imitrex with Topamax. Tramadol as well. Qualifiers: Migraine type: chronic without aura Status migrainosus presence: without status migrainosus Intractability: not intractable Qualified Code(s): G43.709 - Chronic migraine without aura, not intractable, without status migrainosus (5) HTN (hypertension) Current Visit: Yes Status: Chronic Assessment and plan: Well controlled at this time Continue home meds - Zestril unchanged Qualifiers: Hypertension type: essential hypertension Qualified Code(s): I10 - Essential (primary) hypertension (6) CAD (coronary artery disease) Current Visit: Yes Status: Chronic Assessment and plan: Chronic. No active chest pain or EKG changes Qualifiers: Coronary Disease-Associated Artery/Lesion type: unspecified vessel or lesion type [place] vs. transplanted heart: [place] heart Associated angina: without angina Qualified Code(s): I25.10 - Atherosclerotic heart disease of [place] coronary artery without angina pectoris (7) Crohn's disease Current Visit: Yes Status: Chronic Assessment and plan: Continue home meds. Appears to be stable at this time Qualifiers: Gastrointestinal tract location: unspecified location Digestive disease complication type: without complication Qualified Code(s): K50.90 - Crohn's disease, unspecified, without complications (8) Depression Current Visit: Yes Status: Chronic Assessment and plan: Continue home medications Qualifiers: Depression Type: unspecified Qualified Code(s): F32.9 - Major depressive disorder, single episode, unspecified (9) Generalized anxiety disorder Current Visit: Yes Status: Acute Assessment and plan: Continue home meds (10) History of drug overdose Current Visit: Yes Status: Chronic Assessment and plan: History of admission to [facility] and [facility] facility back in January 2016 after ingesting Xanax, opiods and amphetamines No history of OD since then (11) DVT prophylaxis Current Visit: Yes Status: Acute Assessment and plan: EPCDs - Subjective Interval history: Admitted for AMS after an unwitnessed fall at home, possible NPH Plan for MRI today Patient is resting in bed this morning She keeps asking for her son and is notably anxious Knows she is in hospital but not aware of day or year - unknown baseline No new complaints today - Constitutional Vitals: Temp Pulse Resp BP Pulse Ox 97.8 F 81 16 144/81 99 07/26/17 06:46 07/26/17 06:46 07/26/17 06:46 07/26/17 06:46 07/26/17 06:46 General appearance: Present: cooperative, A&O X 1 (fixated on her son), no acute distress. Absent: answers questions appropriately - Head Head exam: Present: normocephalic Additional comments: abrasion seen on right frontal region - Eye Eye exam: Present: EOMI, normal appearance, conjuntiva pink, sclera anicteric - ENT ENT exam: Present: mucous membranes moist - Neck Neck exam general surgery: Present: supple, trachea midline - Respiratory Respiratory exam: Present: CTAB. Absent: respiratory distress - Cardiovascular Cardiovascular exam: Present: RRR, +S1, +S2 - GI/Abdominal GI/Abdominal exam: Present: normal bowel sounds, soft. Absent: distended, guarding, tenderness - Extremities Exam Extremities exam: Present: warm. Absent: pedal edema, tenderness - Neurological Exam Neurological exam: Present: alert, altered - Psychiatric Psychiatric exam: Present: anxious - Skin Skin exam: Present: dry, normal color, warm. Absent: diaphoretic Internal Medicine: Result - Labs CBC & Chem 7: 07/24/17 20:59 07/26/17 03:35 Labs: BMP 07/26/17 03:35 Sodium 138 Potassium 3.9 Chloride 108 H Carbon Dioxide 27 BUN 16 Creatinine 0.64 Glucose 94 Calcium 8.5 L - VTE Documentation of Mechanical Device: Intermittent pneumatic compression device Consult Discharge Plan - Plan Referrals: Kj Paris MD [Primary Care Provider] - <Stephen Corrales - Last Filed: 07/26/17 18:51> Date of Encounter: 07/26/17 - Assessment and plan (1) Acute metabolic encephalopathy Current Visit: Yes Status: Acute (2) Gait instability Current Visit: Yes Status: Acute (3) HTN (hypertension) Current Visit: Yes Status: Chronic Qualifiers: Hypertension type: essential hypertension Qualified Code(s): I10 - Essential (primary) hypertension (4) CAD (coronary artery disease) Current Visit: Yes Status: Chronic Qualifiers: Coronary Disease-Associated Artery/Lesion type: unspecified vessel or lesion type [place] vs. transplanted heart: [place] heart Associated angina: without angina Qualified Code(s): I25.10 - Atherosclerotic heart disease of [place] coronary artery without angina pectoris (5) NPH (normal pressure hydrocephalus) Current Visit: Yes Status: Suspected - Constitutional Vitals: Temp Pulse Resp BP Pulse Ox 98.5 F 87 16 128/79 96 07/26/17 14:51 07/26/17 14:51 07/26/17 14:51 07/26/17 14:51 07/26/17 14:51 Internal Medicine: Result - Labs CBC & Chem 7: 07/24/17 20:59 07/26/17 03:35 Labs: BMP 07/26/17 03:35 Sodium 138 Potassium 3.9 Chloride 108 H Carbon Dioxide 27 BUN 16 Creatinine 0.64 Glucose 94 Calcium 8.5 L - Impressions Impressions Brain MRI 07/26/17 00:00 IMPRESSION: 1. Ventriculomegaly which is out of proportion to the degree of brain parenchymal volume loss. This raises the possibility for normal pressure hydrocephalus for which clinical correlation is recommended. 2. Periventricular and subcortical white matter signal abnormality compatible with mild chronic microvascular ischemic changes. 3. 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 D/ / 07/26/2017 13:37:22 Mau Staton MD / karen Interpreting Provider: Mau Staton MD - Attending Attestation I examined this patient and my medical decision-making was reviewed with the Resident Physician on 07/26/17. I agree with the documented findings, disposition and treatment plan as described except to the extent set forth below. Ms Bowles is currently in observation due to confusion and concern for NPH. She remains moderate to high risk due to potential for worsening clinical status. Ms Bowles just returned from MRI. She denies pain. She is confused to place and time and rambles about things in past. Exam Alert. Comfortable Mucus membranes dry Heart reg No wheeze I/P 1. Met enceph 2. Possible NPH - Further diagnoses and plan as above.
[2017-07-26] MEDS ORDERED: traMADol 50 MG TABLET PO PRN (09:13)
[2017-07-26] MEDS: Acetaminophen 325 MG TABLET PO PRN ×2 (09:52→18:20)
[2017-07-26] MEDS: Famotidine 20 MG TABLET PO SCH (10:40)
[2017-07-26] MEDS: Topiramate 25 MG TABLET PO SCH (10:40)
[2017-07-26] MEDS: ALPRAZolam 0.5 MG TABLET PO SCH ×2 (10:40→19:52)
--- NOTE | 2017-07-26 10:44 | Neurology Progress Note ---
Date of Encounter: 07/26/17 Time of Encounter: 07:25 Assessment and Plan (1) Altered mental status Current Visit: Yes Status: Acute Patient has been admitted with mental status changes and fall not able to give much detailed information and history about her symptoms except that she had a fall and she noted to have some confusion CT scan of the head shows dilated ventricles without any other abnormality Concerning her mental status changes V do need to exclude any central and infectious etiology recommend checking metabolic as well as infectious workup The same time get an MRI of the brain and particularly to look for fourth ventricle and any other structural abnormalities that may be causing any structural damage So far blood work has been negative except low therapeutic vitamin B12. She is scheduled for MRI today considering her mental status changes which are predominantly more confabulation and flight of ideas more than true mental status changes I wonder that her symptoms are more of dementia then from anything else I really doubt that these symptoms are related to NPH especially when she did not have other parkinsonian features neither has any typical magnetic gait Suggest getting an MRI of the brain physical therapy evaluation she lives at home by herself do not think she able to manage alone she would need to be in assisted living or in a [place] [facility] facility can be evaluated by neurology as an outpatient after D/C Qualifiers: Altered mental status type: disorientation Qualified Code(s): R41.0 - Disorientation, unspecified (2) Dilated ventricle Current Visit: Yes Status: Acute (3) Gait instability Current Visit: Yes Status: Acute Subjective Interval history: Patient seen as follow-up. She was admitted with mental status changes though she is awake and oriented and able to have conversation but getting that she was having significant flight of ideas and talking about random things she is able to recall the name of her primary care physician but having some confabulation. 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, quadriceps, tibialis Anterior, toe extension (EHL), plantarflexion Sensation intact: Present: intact Reflex and gait examination: intact Mental Status Examination: Present: awake, alert, oriented to person, oriented to place, follows commands appropriately Cranial nerve examination: Present: PERRL, EOMI, no facial asymmetry is present , no dysarthria Cerebellar examination: Present: no dysmetria - VTE Documentation of Mechanical Device: Intermittent pneumatic compression device Results - Laboratory Findings CBC and BMP: 07/24/17 20:59 07/26/17 03:35 Abnormal lab findings: Abnormal lab results RDW 17.1 % (11.5-14.5) H 07/24/17 20:59 Chloride 108 mEq/L (98-107) H 07/26/17 03:35 POC Glucose 98 (58-89) H 07/26/17 07:36 Calcium 8.5 mg/dL (8.6-10.3) L 07/26/17 03:35 Folate 29.0 ng/mL (3.0-16.0) H 07/25/17 15:38 Urine Clarity Turbid (Clear) A 07/24/17 20:32 Ur Specific [place] > 1.030 (1.010-1.025) H 07/24/17 20:32 Urine Protein 30 mg/dL (Neg-Trace) H 07/24/17 20:32 Urine Glucose (UA) 250 mg/dL (Normal) H 07/24/17 20:32 Urine Ketones Trace mg/dL (Negative) H 07/24/17 20:32 Urine Bilirubin Small (Negative) H 07/24/17 20:32 Urine Microscopic WBC 5-15 per hpf (0-3) H 07/24/17 20:32 Ur Squamous Epith Cells Many per lpf (None-Few) H 07/24/17 20:32 Consult Discharge Plan - Plan Referrals: Kj Paris MD [Primary Care Provider] -
[2017-07-26] MEDS ORDERED: Cyanocobalamin (B-12) 1,000 MCG/ML VIAL IM ONE (10:45)
[2017-07-27] MEDS: Famotidine 20 MG TABLET PO SCH (07:02)
[2017-07-27] MEDS: ALPRAZolam 0.5 MG TABLET PO SCH (08:55)
[2017-07-27] MEDS: Topiramate 25 MG TABLET PO SCH (08:55)
[2017-07-27] MEDS: Acetaminophen 325 MG TABLET PO PRN (09:02)
--- NOTE | 2017-07-27 09:13 | Physician Discharge Referral ---
Home Health/Hosp Referral Info Transfer to: Home Health Provider in Charge Post Discharge: PCP - Diagnosis (1) Acute metabolic encephalopathy Priority: Primary Status: Acute (2) Dilated ventricle Priority: Secondary Status: Acute (3) Unwitnessed fall Priority: Primary Status: Acute (4) Migraine Priority: Secondary Status: Chronic (5) HTN (hypertension) Priority: Secondary Status: Chronic (6) CAD (coronary artery disease) Priority: Secondary Status: Chronic (7) Crohn's disease Priority: Secondary Status: Chronic (8) Depression Status: Chronic (9) Generalized anxiety disorder Priority: Secondary Status: Acute (10) History of drug overdose Priority: Secondary Status: Chronic (11) DVT prophylaxis Priority: Secondary Status: Acute - Respiratory Orders Smoking Cessation: Smoking cessation has been advised. For more information, call the [employer] Tobacco Quit Line at 7-183-PHGO-NOW. - Diet/Nutrition Diet/Nutrition Orders: Cardiac - Activity Activity Orders: Walker (with [facility]) - Services Needed Following services are medically necessary services: Nursing, Home Health Aide, Physical Therapy, Occupational Therapy - Transfer Medications Prescriptions: Thiamine (B-1) [Vitamin B-1] 100 mg PO DAILY #30 tablet Home Medications: Citalopram [CeleXA] 20 mg PO DAILY 01/27/17 [History] Dicyclomine [Bentyl] 20 mg PO QID 01/27/17 [History] Lisinopril [Zestril] 5 mg PO DAILY 01/27/17 [History] Ranitidine HCl [Zantac] 300 mg PO DAILY 01/27/17 [History] Topiramate [Topamax] 25 mg PO DAILY 01/27/17 [History] rOPINIRole [Requip] 2 mg PO HS 01/27/17 [History] ALPRAZolam [Xanax 0.5 MG Tablet] 0.5 mg PO BID #20 03/17/17 [Rx] Tramadol HCl [Ultram] 50 mg PO Q8H PRN #20 03/17/17 [Rx] Thiamine (B-1) [Vitamin B-1] 100 mg PO DAILY #30 tablet 07/27/17 [Rx] Allergies/Adverse Reactions: 3 Allergy/AdvReac Type Severity Reaction Status Date / Time Penicillins [PCN] Allergy See Verified 01/27/17 21:40 Comments morphine AdvReac Itching Verified 01/27/17 21:40 Certification: Further, I certify that my clinical findings support that this patient is homebound (i.e. absences from home require considerable and taxing effort and are for medical reasons or congregation services or infrequently or short duration when for other reasons) because: Homebound Reason: Patient requires assistance of a person or device to safely leave home, Altered mental status requiring supervision when leaving home Attestation: My signature below is to certify that this patient is under my care and that I, or nurse practitioner, or a physician's environmental assistant working with me, has a face-to -face encounter with this patient.
--- NOTE | 2017-07-27 09:16 | Discharge Summary ---
<Patrick Marquis - Last Filed: 07/27/17 12:53> Date of Encounter: 07/27/17 Time of Encounter: 09:14 - Discharge Diagnosis (1) Acute metabolic encephalopathy Priority: Primary Status: Acute (2) Dilated ventricle Priority: Secondary Status: Acute (3) Unwitnessed fall Priority: Primary Status: Acute (4) Migraine Priority: Secondary Status: Chronic Qualifiers: Migraine type: chronic without aura Status migrainosus presence: without status migrainosus Intractability: not intractable Qualified Code(s): G43.709 - Chronic migraine without aura, not intractable, without status migrainosus (5) HTN (hypertension) Priority: Secondary Status: Chronic Qualifiers: Hypertension type: essential hypertension Qualified Code(s): I10 - Essential (primary) hypertension (6) CAD (coronary artery disease) Priority: Secondary Status: Chronic Qualifiers: Coronary Disease-Associated Artery/Lesion type: unspecified vessel or lesion type [place] vs. transplanted heart: [place] heart Associated angina: without angina Qualified Code(s): I25.10 - Atherosclerotic heart disease of [place] coronary artery without angina pectoris (7) Crohn's disease Priority: Secondary Status: Chronic Qualifiers: Gastrointestinal tract location: unspecified location Digestive disease complication type: without complication Qualified Code(s): K50.90 - Crohn's disease, unspecified, without complications (8) Depression Priority: Secondary Status: Chronic Qualifiers: Depression Type: unspecified Qualified Code(s): F32.9 - Major depressive disorder, single episode, unspecified (9) Generalized anxiety disorder Priority: Secondary Status: Acute (10) History of drug overdose Priority: Secondary Status: Chronic (11) DVT prophylaxis Priority: Secondary Status: Acute - Discharge Medications Prescriptions: Thiamine (B-1) [Vitamin B-1] 100 mg PO DAILY #30 tablet Home Medications: Citalopram [CeleXA] 20 mg PO DAILY 01/27/17 [History] Dicyclomine [Bentyl] 20 mg PO QID 01/27/17 [History] Lisinopril [Zestril] 5 mg PO DAILY 01/27/17 [History] Ranitidine HCl [Zantac] 300 mg PO DAILY 01/27/17 [History] Topiramate [Topamax] 25 mg PO DAILY 01/27/17 [History] rOPINIRole [Requip] 2 mg PO HS 01/27/17 [History] ALPRAZolam [Xanax 0.5 MG Tablet] 0.5 mg PO BID #20 03/17/17 [Rx] Tramadol HCl [Ultram] 50 mg PO Q8H PRN #20 03/17/17 [Rx] Thiamine (B-1) [Vitamin B-1] 100 mg PO DAILY #30 tablet 07/27/17 [Rx] Allergies/Adverse Reactions: 3 Allergy/AdvReac Type Severity Reaction Status Date / Time Penicillins [PCN] Allergy See Verified 01/27/17 21:40 Comments morphine AdvReac Itching Verified 01/27/17 21:40 Procedures/tests Complete & Pending: Procedures Performed prior 72 hours Category Date Time Status MR head/brain wo con [MR] Routine MRI 07/26/17 Completed ECG 12 lead ECG [ECG] Routine Y 07/24/17 20:08 Completed Date of admission: 07/25/17 00:12 Primary care physician: Kj Paris MD Consults: 07/25/17 00:36 Consult to Neurology [CONS] Routine Consulting Provider: Neurology [facility] Reason for Consult: Possible NPH Call Completed: No 07/25/17 02:21 Consult to Occupational Therapy [CONS] Routine Comment: Evaluate, develop and implement POC Reason for Consult: Gen weakness/ fall Consult to Physical Therapy [CONS] Routine Comment: Evaluate, develop and implement POC Reason for Consult: Gen weakness/ fall Consult to Golf Cart Mechanic [CONS] Routine Reason for SW Consult: DC planning Discharging clinician: Stephen Corrales Anticipated date of discharge: 07/27/17 - Patient Status Disposition: Home Health Service Condition: Fair Functional capacity at discharge: uses cane/walker (with contact guard assist at all times) Overall status at discharge: patient is progressing back to baseline - Discharge Instructions Instructions: Altered Mental Status (GEN), Fall Prevention (DC) Follow Up With: Kj Paris MD [Primary Care Provider] - 07/31/17 9:15 am - Diet and Activity Activity: as per physical therapy Diet: low salt diet (cardiac) Hospital course: Ms. Bowles is a 67 year old female patient with history of CAD, HTN, migraines, Chron's disease, depression, generalized anxiety disorder presented to the ER after a fall. Patient currently lived alone and states that her neighbor had convinced her to come to the ER. She presently denies any pain or shortness of breath but is very confused. Unable to provide much history beyond the fact that she fell. Denies any shortness of breath or chest pain. Denies any urinary incontinence. She has having generalized weakness. She had been hospitalized in February 2017 with similar presentation at which time he was diagnosed with UTI. She was discharged to [facility] facility at that time. She does complain of a headache. No blurred vision. No focal weakness or numbness. No speech difficulties or incontinence. Patient was subsequently admitted to [facility] for further evaluation and management for her AMS and falls. EMR review shows history of NPH back in January 2016 where she was evaluated at [facility] at that time. H/o Chiari Type 1 and no shunt or LP were conducted at that time. CT scan performed here on arrival shows enlarged ventricles suggestive of NPH. No other acute changes. Electrolytes, TSH, folate and B12 normal. Urine gravity was high and she was started on IVF therapy. Neuro was consulted and recommended further look with MRI. Of note, there was evidence of chronic ischemic changes without acute abnormalities. Chiari malformation still present. No further intervention at this time. PT/OT evaluation recommended ECF or short term rehabilitation but son refused placement. However, he did agree to [facility]. Patient was AAOx3 on her day of discharge. Ms. Bowles was discharged on 07/27/17 in stable condition with [facility] and adequate followup in place. - Time Spent with Patient Total time spent providing and/or coordinating discharge services: - Constitutional Vitals: Temp Pulse Resp BP Pulse Ox 98.1 F 72 16 126/82 98 07/27/17 06:48 07/27/17 06:48 07/27/17 06:48 07/27/17 06:48 07/27/17 06:48 General appearance: Present: cooperative, A&O X 3, no acute distress, answers questions appropriately (improved from yesterday, still with intermittent confabulations) - Head Head exam: Present: atraumatic, normocephalic - Eye Eye exam: Present: EOMI, normal appearance, conjuntiva pink, sclera anicteric - ENT ENT exam: Present: mucous membranes moist - Neck Neck exam general surgery: Present: supple, trachea midline - Respiratory Respiratory exam: Present: CTAB. Absent: respiratory distress - Cardiovascular Cardiovascular exam: Present: RRR, +S1, +S2 - GI/Abdominal GI/Abdominal exam: Present: normal bowel sounds, soft. Absent: distended, guarding, tenderness - Extremities Exam Extremities exam: Present: warm. Absent: calf tenderness, cyanotic, pedal edema , tenderness - Neurological Exam Neurological exam: Present: alert, oriented X3 - Psychiatric Psychiatric exam: Present: anxious - Skin Skin exam: Present: dry, warm - VTE Documentation of Mechanical Device: Intermittent pneumatic compression device <Stephen Corrales - Last Filed: 07/27/17 19:06> Date of Encounter: 07/27/17 - Discharge Diagnosis (1) Acute metabolic encephalopathy Status: Acute (2) Gait instability Priority: Secondary Status: Chronic (3) HTN (hypertension) Status: Chronic Qualifiers: Hypertension type: essential hypertension Qualified Code(s): I10 - Essential (primary) hypertension (4) CAD (coronary artery disease) Status: Chronic Qualifiers: Coronary Disease-Associated Artery/Lesion type: [place] artery [place] vs. transplanted heart: [place] heart Associated angina: without angina Qualified Code(s): I25.10 - Atherosclerotic heart disease of [place] coronary artery without angina pectoris (5) NPH (normal pressure hydrocephalus) Priority: Secondary Status: Suspected Procedures/tests Complete & Pending: Procedures Performed prior 72 hours Category Date Time Status MR head/brain wo con [MR] Routine MRI 07/26/17 Completed ECG 12 lead ECG [ECG] Routine Y 07/24/17 20:08 Completed Date of admission: 07/25/17 00:12 Primary care physician: Kj Paris MD Consults: 07/25/17 00:36 Consult to Neurology [CONS] Routine Consulting Provider: Neurology [facility] Reason for Consult: Possible NPH Call Completed: No 07/25/17 02:21 Consult to Occupational Therapy [CONS] Routine Comment: Evaluate, develop and implement POC Reason for Consult: Gen weakness/ fall Consult to Physical Therapy [CONS] Routine Comment: Evaluate, develop and implement POC Reason for Consult: Gen weakness/ fall Consult to Golf Cart Mechanic [CONS] Routine Reason for SW Consult: DC planning Hospital course: Ms. Bowles is a 67 year old female - Time Spent with Patient Total time spent providing and/or coordinating discharge services: - Constitutional Vitals: Temp Pulse Resp BP Pulse Ox 98.9 F 91 18 122/75 98 07/27/17 15:09 07/27/17 15:09 07/27/17 15:09 07/27/17 15:09 07/27/17 15:09 - Attending Attestation I examined this patient and my medical decision-making was reviewed with the Resident Physician on 07/27/17. I agree with the documented findings, disposition and treatment plan as described except to the extent set forth below. Ms Bowles has been in observation due to confusion and concern for NPH. She has returned to baseline. She is afebrile with stable vitals and ready for discharge. Son would like her home with [facility]. Exam Alert. Comfortable Mucus membranes dry Heart reg No wheeze Plan D/C home today with outpatient follow up.
--- NOTE | 2017-07-27 13:15 | Neurology Progress Note ---
Date of Encounter: 07/27/17 Time of Encounter: 07:15 Assessment and Plan (1) Altered mental status Current Visit: Yes Status: Acute Qualifiers: Altered mental status type: unspecified Qualified Code(s): R41.82 - Altered mental status, unspecified (2) Dilated ventricle Current Visit: Yes Status: Acute Patient MRI results were reviewed it seems like she did have dilated ventricles but at the same time she also has a Chiari I malformation went through the records to seem like she has been seen by neurology at [facility] and thought not to be a candidate for any surgical intervention. Though she did have confusion and mental status changes but predominantly more of confabulation than true confusion on examination. At the same time she did not have all her typical parkinsonism features that are commonly associated with NPH neither has any urinary incontinence. Her symptoms seems to be atypical for NPH and with Chiari I I would because some of the high volume spinal tap as it may cause worsening of her chiari. No evidence of a stroke or any other abnormality on MRI clinically she seems to be stable at this time I will recommend transfer to assisted/nursing facility As she has already been evaluated by neurology at [facility] I will recommend follow- up at the tertiary care center due to her atypical symptoms. She may also benefit from evaluation by dementia expert because of atypical symptoms as well as young age. (3) Gait instability Current Visit: Yes Status: Acute Subjective Interval history: Patient seen as follow-up. She was admitted with mental status changes though she is awake and oriented and able to have conversation but getting that she was having significant flight of ideas and talking about random things she is able to recall the name of her primary care physician but having some confabulation. as per records she was seem at [facility] and diagnosis of NPH was entertained, back in January 2016 along with Chiari Type 1 and no shunt or LP were conducted at that time as thought she was not a good candidate. Electrolytes, TSH, folate and B12 normal. Urine gravity was high and she was started on IVF therapy. Objective - Constitutional Vitals: Temp Pulse Resp BP Pulse Ox 98.0 F 86 18 125/76 97 07/27/17 11:24 07/27/17 11:24 07/27/17 11:24 07/27/17 11:24 07/27/17 11:24 - Neurological Exam Sensorimotor examination: Present: intact Motor Examination: Present: grossly full strength in all extremities Motor examination - left side: 4/5: deltoids, biceps, triceps, wrist flexion, wrist extension, hip flexors, applications support lead, quadriceps, tibialis Anterior, toe extension (EHL), plantarflexion Sensation intact: Present: intact Reflex and gait examination: intact Mental Status Examination: Present: awake, alert, oriented to person, oriented to place, follows commands appropriately Cranial nerve examination: Present: PERRL, EOMI, no facial asymmetry is present , no dysarthria Cerebellar examination: Present: no dysmetria - VTE Documentation of Mechanical Device: Intermittent pneumatic compression device Results - Laboratory Findings CBC and BMP: 07/24/17 20:59 07/26/17 03:35 Abnormal lab findings: Abnormal lab results RDW 17.1 % (11.5-14.5) H 07/24/17 20:59 Chloride 108 mEq/L (98-107) H 07/26/17 03:35 POC Glucose 91 (58-89) H 07/27/17 07:15 Calcium 8.5 mg/dL (8.6-10.3) L 07/26/17 03:35 Folate 29.0 ng/mL (3.0-16.0) H 07/25/17 15:38 Urine Clarity Turbid (Clear) A 07/24/17 20:32 Ur Specific [place] > 1.030 (1.010-1.025) H 07/24/17 20:32 Urine Protein 30 mg/dL (Neg-Trace) H 07/24/17 20:32 Urine Glucose (UA) 250 mg/dL (Normal) H 07/24/17 20:32 Urine Ketones Trace mg/dL (Negative) H 07/24/17 20:32 Urine Bilirubin Small (Negative) H 07/24/17 20:32 Urine Microscopic WBC 5-15 per hpf (0-3) H 07/24/17 20:32 Ur Squamous Epith Cells Many per lpf (None-Few) H 07/24/17 20:32 - Diagnostic Findings Additional findings: MRI of brain showed: Ventriculomegaly which is out of proportion to the degree of brain parenchymal volume loss. with possibility for normal pressure hydrocephalus , Periventricular and subcortical white matter signal abnormality compatible with mild chronic microvascular ischemic changes. 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 Consult Discharge Plan - Plan Instructions: Altered Mental Status (GEN), Fall Prevention (DC) Referrals: Kj Paris MD [Primary Care Provider] - Prescriptions: Thiamine (B-1) [Vitamin B-1] 100 mg PO DAILY #30 tablet
[2017-07-27 15:11] VITALS: BP 122/75
== END 2017-07-27 16:50 | disposition home health service (06) ==
LOC: EMEROO 19:59 → 3NENU 19:59 → SUATTDRO 07-25 00:12 → 3NENU 07-25 00:25
PROVIDERS: ADMIT Internal Medicine; ATTEND Internal Medicine

== ENCOUNTER 2017-10-09 15:18 | Observation (INO) ==
--- NOTE | 2017-10-09 16:07 | Emergency Department Note ---
Disposition Clinical Impression: Acute confusion UTI (urinary tract infection) Qualifiers: Urinary tract infection type: acute cystitis Hematuria presence: with hematuria Qualified Code(s): N30.01 - Acute cystitis with hematuria Disposition: Admitted As Inpatient Condition: Fair Referrals: Kj Paris MD [Primary Care Provider] - Forms: ED Satisfaction Letter Time of Disposition: 20:08 Altered Mental Status HPI - General Chief Complaint: ED Fall Stated Complaint: AMANDA Time Seen by Provider: 10/09/17 15:21 Source: patient, EMS Mode of arrival: wheelchair Limitations: no limitations Nursing Notes Reviewed: Yes Vital Signs Reviewed: Yes - History of Present Illness HPI Narrative: 67-year-old female presents to the emergency department complaining of difficulty in breathing as well as a fall and feeling confused. Patient states she suffers from "CRS, cannot remember Shit." She states that she believes that she fell earlier today but cannot remember. Patient states that she is having a hard time remembering stuff recently. Not complaining of any chest pain. She otherwise has no nausea or vomiting has no other medical problems. Patient's thoughts are very distracted. Patient otherwise has no complaints including no fevers, chills, nausea, vomiting, headaches, neck pain, blurry vision, back pain, chest pain, shortness of breath, abdominal pain, pain with urination, change in bowel movements, pain or tingling of the arms or legs. - Related Data Home Medications Medication Instructions Recorded Confirmed Citalopram [CeleXA] 20 mg PO DAILY 01/27/17 07/25/17 Dicyclomine [Bentyl] 20 mg PO QID 01/27/17 07/25/17 Lisinopril [Zestril] 5 mg PO DAILY 01/27/17 07/25/17 Ranitidine HCl [Zantac] 300 mg PO DAILY 01/27/17 07/25/17 Topiramate [Topamax] 25 mg PO DAILY 01/27/17 07/25/17 rOPINIRole [Requip] 2 mg PO HS 01/27/17 07/25/17 Previous Rx's Medication Instructions Recorded ALPRAZolam [Xanax 0.5 MG Tablet] 0.5 mg PO BID #20 03/17/17 Tramadol HCl [Ultram] 50 mg PO Q8H PRN #20 03/17/17 Thiamine (B-1) [Vitamin B-1] 100 mg PO DAILY #30 tablet 07/27/17 Allergies Allergy/AdvReac Type Severity Reaction Status Date / Time Penicillins [PCN] Allergy See Verified 10/09/17 15:55 Comments morphine AdvReac Itching Verified 01/27/17 21:40 Review of Systems: 10 point review of systems done and negative unless otherwise stated in the history of present illness. All systems ED: reviewed and negative except as stated. Review of Systems: As Per HPI Past Medical History - Past Medical History Attestation: Yes The following information was validated with the patient. 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 Absent: tenderness - Chest Chest inspection: Present: normal inspection, symmetric chest wall rise - Respiratory Respiratory exam: Present: normal lung sounds bilaterally - Cardiovascular Cardiovascular exam: Present: regular rate, normal rhythm, normal heart sounds - Abdominal Exam Abdominal exam: Present: soft, Non-Tender. Absent: tenderness, distention, guarding, rebound, rigidity, normal bowel sounds - Extremities Exam Extremities exam: Present: normal inspection, full ROM. Absent: tenderness, pedal edema - Expanded Lower Extremity Exam Gait: observed and normal - Back Exam Back exam: Present: normal inspection, full ROM. Absent: tenderness - Neurological Exam Neurological exam: Present: alert, oriented X3, CN II-XII intact. Absent: motor sensory deficit - Expanded Neurological Exam Patient oriented to: Present: person, place, time Speech: Present: fluid speech Cranial nerves: EOM function (II, III, IV, ): Normal, facial sensation (V): Normal, facial palsy (VII): Normal, spinal accessory function (XI): Normal, tongue deviation (XII): Normal Cerebellar function: finger to nose: Normal, heel to haji: Normal Cerebellar function: normal gait Motor strength - LUE: 5/5 Motor strength - RUE: 5/5 Motor strength - LLE: 5/5 Motor strength - RLE: 5/5 Upper motor neuron exam: mert neglect: Absent bilaterally, pronator drift: Absent bilaterally Sensory exam upper extremity: light touch: Normal Sensory exam lower extremity: light touch: Normal Coma Scale Eye Opening: Spontaneous Coma Scale Motor Response: Obeys Commands Coma Scale Verbal Response: Oriented Coma Scale Total: 15 - Skin Skin exam: Present: warm, dry, intact, normal color Course Course Narrative: 67-year-old female presents for altered mental status. After dilating her she does seem a little confused we will due to her altered mental status workup including CBC, VBG, CMP, urinalysis, carboxyhemoglobin, alcohol, UDS, CT head and neck as well as chest x-ray and EKG. Disposition pending results. - Reevaluation(s) Reevaluation #1: I did walk the patient where she had no signs of acute ataxic gait and she says that she has had no signs of any incontinence. This is all due to her CT head coming back showing normal pressure hydrocephalus. We will consult with [facility] for possible neurosurgical services. Time: 18:30 - Consultations Consultation #1: I spoke with [facility] about this patient as her head CT came back showing possible normal pressure hydrocephalus. They said the patient was admitted in January 2016 for a very similar issue where she was seen by a neurologist as well as a neurosurgery consultation where she had radiological findings of normal pressure hydrocephalus with no ataxic gait or incontinence due to that they felt that there was low yield for doing a lumbar puncture as well as placing a shunt. They said that it was unknown what could be causing her change in mental status but said that most likely is not due to normal pressure to cephalization is just a variant shown on CT scan of her head. Due to this we felt that transferring up to [facility] for neurology/neurosurgical consult was not necessary. We will speak with the hospitalist was here to see if they are okay with admitting the patient. Time: 18:55 Vital Signs Pulse Rate 100 10/09/17 15:26 Respiratory Rate 20 10/09/17 15:26 Blood Pressure 160/90 10/09/17 15:26 O2 Sat by Pulse Oximetry 99 10/09/17 15:26 Temperature 98 F 10/09/17 16:01 Pulse Rate 84 10/09/17 19:54 Respiratory Rate 18 10/09/17 19:54 Blood Pressure 162/75 10/09/17 19:54 O2 Sat by Pulse Oximetry 97 10/09/17 19:54 Oxygen Delivery Oxygen Delivery Room Air Altered Mental Status - MDM Narrative Medical decision making narrative: 67-year-old female presented to the emergency department with altered mental status. After examining her patient was alert but not fully oriented. We did speak with family said she was a little bit off and normally what occurs that she has urinary tract infection as she does have Crohn's and sometimes it gets infected as she does not always wipe properly. Urinalysis was dirty this was done by straight catheter that could be her source and we will treat with 1 g or Rocephin. We also did a head CT was came back showing normal pressure hydrocephalus I did speak with [facility] who said that soundly is a chronic issue and they did not recommend shunt or LP and did not need neurosurgical evaluation at this time. Patient also had some abnormalities on EKG with a left bundle- branch when comparison with the old EKG and a picture sent to the salt cutter Dr. Pearce who said that as long as the left bundle is not new this is not acute event. I did speak with the hospitalist, Dr. Owen who agreed to admit the patient to their service. Patient is admitted to the hospital service in stable condition. Chest X-Ray 10/09/17 15:43 IMPRESSION: No acute process. D/ / Canelo Oconnor MD / Canelo Oconnor MD Interpreting Provider: Canelo Oconnor MD Cervical Spine CT 10/09/17 15:44 IMPRESSION: 1. Stable ventricular prominence which suggests association with normal pressure hydrocephalus. 2. No acute intracranial abnormality. 3. Normal cervical spine alignment with multilevel degenerative changes. No acute fracture. 4. Indeterminate 3 mm solid nodule of the lateral right upper lobe (see recommendations). RECOMMENDATIONS: Fleischner Society guidelines for follow-up and management of incidentally detected pulmonary nodules: Single Solid Nodule: Nodule size less than 6 mm In a low-risk patient, no routine follow-up. In a high-risk patient, optional CT at 12 months. Nodule size equals 6-8 mm In a low-risk patient, CT at 6-12 months, then consider CT at 18-24 months. In a high-risk patient, CT at 6-12 months, then CT at 18-24 months. Nodule size greater than 8 mm In a low-risk patient, consider CT, PET/CT, or tissue sampling at 3 months. In a high-risk patient, consider CT, PET/CT, or tissue sampling at 3 months. Multiple Solid Nodules: Nodule size less than 6 mm In a low-risk patient, no routine follow-up. In a high-risk patient, optional CT at 12 months. Nodule size equals 6-8 mm In a low-risk patient, CT at 3-6 months, then consider CT at 18-24 months. In a high-risk patient, CT at 3-6 months, then CT at 18-24 months. Nodule size greater than 8 mm In a low-risk patient, CT at 3-6 months, then consider CT at 18-24 months. In a high-risk patient, CT at 3-6 months, then CT at 18-24 months. - Low risk patients include individuals with minimal or absent history of smoking and other known risk factors. - High risk patients include individuals with a history or smoking or known risk factors. Radiology 2017 http://pubs.rsna.org/doi/full/10.1148/radiol.[email or web address] D/ / 10/09/2017 16:48:04 Olegario Landrum MD / víctor Interpreting Provider: Olegario Landrum MD Head CT 10/09/17 15:44 IMPRESSION: 1. Stable ventricular prominence which suggests association with normal pressure hydrocephalus. 2. No acute intracranial abnormality. 3. Normal cervical spine alignment with multilevel degenerative changes. No acute fracture. 4. Indeterminate 3 mm solid nodule of the lateral right upper lobe (see recommendations). RECOMMENDATIONS: Fleischner Society guidelines for follow-up and management of incidentally detected pulmonary nodules: Single Solid Nodule: Nodule size less than 6 mm In a low-risk patient, no routine follow-up. In a high-risk patient, optional CT at 12 months. Nodule size equals 6-8 mm In a low-risk patient, CT at 6-12 months, then consider CT at 18-24 months. In a high-risk patient, CT at 6-12 months, then CT at 18-24 months. Nodule size greater than 8 mm In a low-risk patient, consider CT, PET/CT, or tissue sampling at 3 months. In a high-risk patient, consider CT, PET/CT, or tissue sampling at 3 months. Multiple Solid Nodules: Nodule size less than 6 mm In a low-risk patient, no routine follow-up. In a high-risk patient, optional CT at 12 months. Nodule size equals 6-8 mm In a low-risk patient, CT at 3-6 months, then consider CT at 18-24 months. In a high-risk patient, CT at 3-6 months, then CT at 18-24 months. Nodule size greater than 8 mm In a low-risk patient, CT at 3-6 months, then consider CT at 18-24 months. In a high-risk patient, CT at 3-6 months, then CT at 18-24 months. - Low risk patients include individuals with minimal or absent history of smoking and other known risk factors. - High risk patients include individuals with a history or smoking or known risk factors. Radiology 2017 http://pubs.rsna.org/doi/full/10.1148/radiol.[email or web address] D/ / 10/09/2017 16:48:04 Olegario Landrum MD / víctor Interpreting Provider: Olegario Landrum MD - Medical Records Medical records reviewed: Yes I reviewed the patient's medical records. - Lab Data Lab results reviewed: Yes I reviewed the patient's lab results. Result diagrams: 10/09/17 16:03 10/09/17 16:03 Lab Results 10/09/17 10/09/17 10/09/17 Range/Units 16:03 16:03 16:03 WBC 11.5 H (4.3-11.1) K/mcL RBC 4.36 (3.82-4.97) M/mcL Hgb 14.2 (11.5-15.4) g/dL Hct 43.4 (35.3-44.9) % MCV 99.5 (83.0-100.0) fL MCH 32.6 (28.0-33.3) pg MCHC 32.7 (31.6-35.5) g/dL RDW 14.4 (11.5-14.5) % Plt Count 372 (140-400) K/mcL MPV 9.4 (9.4-12.4) fL Immature Gran % 1.0 (0-4) % Seg Neutrophils % 66.8 % Lymphocytes % 21.6 % Monocytes % 10.0 % Eosinophils % 0.2 % Basophils % 0.4 % Neutrophils # 7.7 (1.6-8.9) K/mcL Lymphocytes # 2.5 (0.6-4.6) K/mcL Monocytes # 1.2 (0.0-1.3) K/mcL Eosinophils # 0.0 (0.0-0.6) K/mcL Basophils # 0.1 (0.0-0.2) K/mcL PT 10.5 (9.4-12.1) Seconds INR 1.0 APTT 24.3 L (26.0-36.0) Seconds VBG pH (7.32-7.42) pH Units VBG pCO2 (41-51) mmHg VBG pO2 (25-50) mmHg VBG HCO3 (21-27) mEq/L Carboxyhemoglobin (0-5) % Sodium 137 (136-145) mEq/L Potassium 3.2 L (3.5-5.1) mEq/L Chloride 105 (98-107) mEq/L Carbon Dioxide 25 (23-29) mEq/L BUN 11 (8-23) mg/dL Creatinine 0.76 (0.60-1.20) mg/dL Est GFR ( Amer) > 60 (> 60) Est GFR (Non-Af Amer) > 60 (> 60) BUN/Creatinine Ratio 14 (6-26) Glucose 168 H (70-105) mg/dL Calculated Osmolality 287 (280-300) Calcium 9.0 (8.6-10.3) mg/dL Total Bilirubin 0.6 (0.3-1.0) mg/dL Direct Bilirubin 0.2 (0.0-0.2) mg/dL Indirect Bilirubin 0.4 (0.0-1.2) mg/dL AST 25 (13-39) Units/L ALT 29 (7-52) Units/L Alkaline Phosphatase 157 H (34-104) Units/L Troponin I < 0.03 (< 0.04) ng/mL Serum Total Protein 5.8 L (6.4-8.9) g/dL Albumin 3.2 L (3.5-5.7) g/dL Globulin 2.6 (2.4-3.5) g/dL Albumin/Globulin Ratio 1.2 (1.1-2.2) TSH 0.738 (0.340-5.600) mcIU/mL Urine Color (Yellow) Urine Clarity (Clear) Urine pH (5.0-8.0) pH Units Ur Specific [place] (1.010-1.025) Urine Protein (Neg-Trace) mg/dL Urine Glucose (UA) (Normal) mg/dL Urine Ketones (Negative) mg/dL Urine Blood (Negative) Urine Nitrite (Negative) Urine Bilirubin (Negative) Urine Urobilinogen (Normal) mg/dL Ur Leukocyte Esterase (Negative) Urine Microscopic RBC (0-3) per hpf Urine Microscopic WBC (0-3) per hpf Ur Squamous Epith Cells (None-Few) per lpf Urine Bacteria (None-Few) per hpf Hyaline Casts (None-Few) per lpf Ur Culture Indicated? (NO) Urine Opiates Screen (Znsbvr=327) ng/mL Ur Barbiturates Screen (Fliwer=973) ng/mL Ur Phencyclidine Scrn (Cutoff=25) ng/mL Ur Amphetamines Screen (Izazze=1174) ng/mL U Benzodiazepines Scrn (Tmqljx=724) ng/mL Urine Cocaine Screen (Cutoff= 300) ng/mL U Marijuana (THC) Screen (Cutoff = 50) ng/mL Ethyl Alcohol < 10 (0-10) mg/dL 10/09/17 10/09/17 10/09/17 Range/Units 16:03 16:26 17:28 WBC (4.3-11.1) K/mcL RBC (3.82-4.97) M/mcL Hgb (11.5-15.4) g/dL Hct (35.3-44.9) % MCV (83.0-100.0) fL MCH (28.0-33.3) pg MCHC (31.6-35.5) g/dL RDW (11.5-14.5) % Plt Count (140-400) K/mcL MPV (9.4-12.4) fL Immature Gran % (0-4) % Seg Neutrophils % % Lymphocytes % % Monocytes % % Eosinophils % % Basophils % % Neutrophils # (1.6-8.9) K/mcL Lymphocytes # (0.6-4.6) K/mcL Monocytes # (0.0-1.3) K/mcL Eosinophils # (0.0-0.6) K/mcL Basophils # (0.0-0.2) K/mcL PT (9.4-12.1) Seconds INR APTT (26.0-36.0) Seconds VBG pH 7.37 (7.32-7.42) pH Units VBG pCO2 42 (41-51) mmHg VBG pO2 41 (25-50) mmHg VBG HCO3 24 (21-27) mEq/L Carboxyhemoglobin 5.1 H (0-5) % Sodium (136-145) mEq/L Potassium (3.5-5.1) mEq/L Chloride (98-107) mEq/L Carbon Dioxide (23-29) mEq/L BUN (8-23) mg/dL Creatinine (0.60-1.20) mg/dL Est GFR ( Amer) (> 60) Est GFR (Non-Af Amer) (> 60) BUN/Creatinine Ratio (6-26) Glucose (70-105) mg/dL Calculated Osmolality (280-300) Calcium (8.6-10.3) mg/dL Total Bilirubin (0.3-1.0) mg/dL Direct Bilirubin (0.0-0.2) mg/dL Indirect Bilirubin (0.0-1.2) mg/dL AST (13-39) Units/L ALT (7-52) Units/L Alkaline Phosphatase (34-104) Units/L Troponin I (< 0.04) ng/mL Serum Total Protein (6.4-8.9) g/dL Albumin (3.5-5.7) g/dL Globulin (2.4-3.5) g/dL Albumin/Globulin Ratio (1.1-2.2) TSH (0.340-5.600) mcIU/mL Urine Color Dark Yellow (Yellow) Urine Clarity Cloudy A (Clear) Urine pH 5.5 (5.0-8.0) pH Units Ur Specific [place] 1.027 H (1.010-1.025) Urine Protein Negative (Neg-Trace) mg/dL Urine Glucose (UA) 500 H (Normal) mg/dL Urine Ketones 40 H (Negative) mg/dL Urine Blood Trace H (Negative) Urine Nitrite Negative (Negative) Urine Bilirubin Small H (Negative) Urine Urobilinogen Normal (Normal) mg/dL Ur Leukocyte Esterase Small H (Negative) Urine Microscopic RBC 5-15 H (0-3) per hpf Urine Microscopic WBC 15-30 H (0-3) per hpf Ur Squamous Epith Cells Many H (None-Few) per lpf Urine Bacteria None Seen (None-Few) per hpf Hyaline Casts Few (None-Few) per lpf Ur Culture Indicated? NO. (NO) Urine Opiates Screen (Juvpkb=626) ng/mL Ur Barbiturates Screen (Bcodup=436) ng/mL Ur Phencyclidine Scrn (Cutoff=25) ng/mL Ur Amphetamines Screen (Pgmwgo=0795) ng/mL U Benzodiazepines Scrn (Dpqumu=840) ng/mL Urine Cocaine Screen (Cutoff= 300) ng/mL U Marijuana (THC) Screen (Cutoff = 50) ng/mL Ethyl Alcohol (0-10) mg/dL 10/09/17 Range/Units 17:28 WBC (4.3-11.1) K/mcL RBC (3.82-4.97) M/mcL Hgb (11.5-15.4) g/dL Hct (35.3-44.9) % MCV (83.0-100.0) fL MCH (28.0-33.3) pg MCHC (31.6-35.5) g/dL RDW (11.5-14.5) % Plt Count (140-400) K/mcL MPV (9.4-12.4) fL Immature Gran % (0-4) % Seg Neutrophils % % Lymphocytes % % Monocytes % % Eosinophils % % Basophils % % Neutrophils # (1.6-8.9) K/mcL Lymphocytes # (0.6-4.6) K/mcL Monocytes # (0.0-1.3) K/mcL Eosinophils # (0.0-0.6) K/mcL Basophils # (0.0-0.2) K/mcL PT (9.4-12.1) Seconds INR APTT (26.0-36.0) Seconds VBG pH (7.32-7.42) pH Units VBG pCO2 (41-51) mmHg VBG pO2 (25-50) mmHg VBG HCO3 (21-27) mEq/L Carboxyhemoglobin (0-5) % Sodium (136-145) mEq/L Potassium (3.5-5.1) mEq/L Chloride (98-107) mEq/L Carbon Dioxide (23-29) mEq/L BUN (8-23) mg/dL Creatinine (0.60-1.20) mg/dL Est GFR ( Amer) (> 60) Est GFR (Non-Af Amer) (> 60) BUN/Creatinine Ratio (6-26) Glucose (70-105) mg/dL Calculated Osmolality (280-300) Calcium (8.6-10.3) mg/dL Total Bilirubin (0.3-1.0) mg/dL Direct Bilirubin (0.0-0.2) mg/dL Indirect Bilirubin (0.0-1.2) mg/dL AST (13-39) Units/L ALT (7-52) Units/L Alkaline Phosphatase (34-104) Units/L Troponin I (< 0.04) ng/mL Serum Total Protein (6.4-8.9) g/dL Albumin (3.5-5.7) g/dL Globulin (2.4-3.5) g/dL Albumin/Globulin Ratio (1.1-2.2) TSH (0.340-5.600) mcIU/mL Urine Color (Yellow) Urine Clarity (Clear) Urine pH (5.0-8.0) pH Units Ur Specific [place] (1.010-1.025) Urine Protein (Neg-Trace) mg/dL Urine Glucose (UA) (Normal) mg/dL Urine Ketones (Negative) mg/dL Urine Blood (Negative) Urine Nitrite (Negative) Urine Bilirubin (Negative) Urine Urobilinogen (Normal) mg/dL Ur Leukocyte Esterase (Negative) Urine Microscopic RBC (0-3) per hpf Urine Microscopic WBC (0-3) per hpf Ur Squamous Epith Cells (None-Few) per lpf Urine Bacteria (None-Few) per hpf Hyaline Casts (None-Few) per lpf Ur Culture Indicated? (NO) Urine Opiates Screen Negative (Uooelz=663) ng/mL Ur Barbiturates Screen Negative (Seynps=413) ng/mL Ur Phencyclidine Scrn Negative (Cutoff=25) ng/mL Ur Amphetamines Screen Negative (Zlcbah=3299) ng/mL U Benzodiazepines Scrn Positive H (Pavtbw=026) ng/mL Urine Cocaine Screen Negative (Cutoff= 300) ng/mL U Marijuana (THC) Screen Negative (Cutoff = 50) ng/mL Ethyl Alcohol (0-10) mg/dL - Radiology Data Radiology results reviewed: Yes I reviewed the patient's radiology results. - EKG Data EKG attestation: Yes I reviewed and interpreted this EKG. EKG results narrative: EKG done at 1520 review myself and the attending shows sinus tachycardia rate of 101, WV interval 156, QRS 134, QTc 427 with a leftward axis. There is no acute ST changes or any T-wave changes there is a left bundle branch block no other signs of hypertrophy or heart strain. No other blocks. No WPW/Brugada syndrome. Comparison with old EKG also shows left bundle and no other acute changes that was done 07/24/17. TPA Checklist - LKW: 3-4.5 hrs Add. Warnings/Precautions Patient/family understanding: The patient/family members have been counseled and understood the risk, benefit , and alternatives of treatment. Attestation Statement - Attestation Attestation: I examined this patient and my medical decision-making was reviewed with the Resident Physician. I agree with the documented findings, disposition and treatment plan as described except to the extent set forth below. Confusion in the setting of possible recent fall. No reported any coagulation use. No midline cervical spine tenderness. Patient has no objective findings of trauma but does have confusion. She is intermittently agitated with staff. CT scan of the head and neck show no evidence of acute findings. Chest x-ray is without acute findings. No identifiable metabolic derangement. Plan to obtain urinalysis and admitted for evaluation of altered mental status. Patient does not a history of UTI and associated altered mental status.
[2017-10-09 16:22] LABS: Basophils # 0.1 K/mcL (0.0-0.2); Basophils % 0.4 %; Eosinophils % 0.2 %; Hematocrit 43.4 % (35.3-44.9); Hemoglobin 14.2 g/dL (11.5-15.4); Lymphocytes # 2.5 K/mcL (0.6-4.6); Lymphocytes % 21.6 %; Mean Corpuscular HGB Conc 32.7 g/dL (31.6-35.5); Mean Corpuscular Hemoglobin 32.6 pg (28.0-33.3); Mean Corpuscular Volume 99.5 fL (83.0-100.0); Mean Platelet Volume 9.4 fL (9.4-12.4); Monocytes # 1.2 K/mcL (0.0-1.3); Neutrophils # 7.7 K/mcL (1.6-8.9); Platelet Count 372 K/mcL (140-400); Red Blood Count 4.36 M/mcL (3.82-4.97); Red Cell Distribution Width 14.4 % (11.5-14.5); Segmented Neutrophils % 66.8 %
[2017-10-09 16:29] LABS: VBG HCO3 24 mEq/L (21-27); VBG PCO2 42 mmHg (41-51); VBG PH 7.37 pH Units (7.32-7.42); VBG PO2 41 mmHg (25-50)
[2017-10-09 16:30] LABS: Ethanol < 10 mg/dL (0-10)
[2017-10-09 16:34] LABS: Prothrombin Time 10.5 Seconds (9.4-12.1)
[2017-10-09 16:37] LABS: Activated Partial Thrombo Time 24.3 Seconds (26.0-36.0)
[2017-10-09 16:44] LABS: Alanine Aminotransferase 29 Units/L (7-52); Albumin 3.2 g/dL (3.5-5.7); Albumin/Globulin Ratio 1.2 (1.1-2.2); Alkaline Phosphatase 157 Units/L (34-104); Aspartate Amino Transferase 25 Units/L (13-39); BUN/Creatinine Ratio 14 (6-26); Bilirubin,Direct 0.2 mg/dL (0.0-0.2); Bilirubin,Indirect 0.4 mg/dL (0.0-1.2); Bilirubin,Total 0.6 mg/dL (0.3-1.0); Blood Urea Nitrogen 11 mg/dL (8-23); Carbon Dioxide 25 mEq/L (23-29); Chloride 105 mEq/L (98-107); Globulin 2.6 g/dL (2.4-3.5); Glucose 168 mg/dL (70-105); Osmolality,Calculated 287 (280-300); Potassium 3.2 mEq/L (3.5-5.1); Sodium 137 mEq/L (136-145); Total Protein 5.8 g/dL (6.4-8.9); Troponin I < 0.03 ng/mL (< 0.04); eGFR For African Americans > 60 (> 60); eGFR For Non-African Americans > 60 (> 60)
[2017-10-09 16:57] LABS: Thyroid Stimulating Hormone 0.738 mcIU/mL (0.340-5.600)
[2017-10-09 17:59] LABS: Bilirubin,Urine Small (Negative); Blood,Urine Trace (Negative); Clarity,Urine Cloudy (Clear); Color,Urine Dark Yellow (Yellow); Glucose,Urine (UA) 500 mg/dL (Normal); Ketones,Urine 40 mg/dL (Negative); Leukocyte Esterase,Urine Small (Negative); Nitrite,Urine Negative (Negative); PH,Urine 5.5 pH Units (5.0-8.0); Protein,Urine Negative (Neg-Trace); Specific Gravity,Urine 1.027 (1.010-1.025); Urobilinogen,Urine Normal (Normal)
[2017-10-09 18:02] LABS: Bacteria,Urine None Seen per hpf (None-Few); Hyaline Casts,Urine Few per lpf (None-Few); Squamous Epithelial Cell,Urine Many per lpf (None-Few); WBC,Urine 15-30 per hpf (0-3)
[2017-10-09 18:05] LABS: Amphetamine Screen,Urine Negative ng/mL (Cutoff=1000); Barbiturate Screen,Urine Negative ng/mL (Cutoff=200); Benzodiazepines Screen,Urine Positive ng/mL (Cutoff=200); Cannabinoid Screen,Urine Negative ng/mL (Cutoff = 50); Cocaine Screen,Urine Negative ng/mL (Cutoff= 300); Opiate Screen,Urine Negative ng/mL (Cutoff=300); Phencyclidine Screen,Urine Negative ng/mL (Cutoff=25)
[2017-10-09] MEDS ORDERED: cefTRIAXone 1,000 MG in Water for inj. (sterile) 20 ML 10 ML IVPB ONE (20:00)
[2017-10-09] MEDS ORDERED: Nicotine 21 MG PATCH.TD24 TD ONE (20:26)
--- NOTE | 2017-10-09 21:34 | Internal Med History&Physical ---
<Radha Guillaume - Last Filed: 10/10/17 00:09> Date of Encounter: 10/10/17 Time of Encounter: 21:31 Assessment and Plan (1) Altered mental status Current visit: No Status: Acute 67 y F with NPH presenting with AMS with presentation concerning for polypharmacy, including psychoactive drugs, infection and dehydration. UA concerning for possible UTI. Head CT 10/09/17 15:44 also demonstrating stable ventricular prominence, consistent with NPH, which patient has been for at [facility]. Serum electrolytes, creatinine, glucose, calcium, complete blood count AM pending. Continue home Thiamine medication supplementation. When possible orientation protocols, by frequent re-orientation to day and time and nonpharmacologic sleep aids. If requires, melatonin PO PRN. Utox positive for benzodiazepines, with patient taking at home.Will continue Xanax given presentation not consistent with M[employer] WIRER depression, and this less likely represents overdose and in effort to prevent withdrawal, which may worsen 's pt risk for agitation. Bentyl to be avoided given presentation. Qualifiers: Altered mental status type: disorientation Qualified Code(s): R41.0 - Disorientation, unspecified (2) UTI (urinary tract infection) Current visit: Yes Status: Acute Given presentation with confusion, recommend treatment of UTI. Will treat with Antibiotics. Qualifiers: Urinary tract infection type: acute cystitis Hematuria presence: without hematuria Qualified Code(s): N30.00 - Acute cystitis without hematuria (3) NPH (normal pressure hydrocephalus) Current visit: No Status: Chronic Cervical Spine CT 10/09/17 15:44 IMPRESSION:1. Stable ventricular prominence which suggests association with normal pressure hydrocephalus. Pt was initially diagnosed in 2016, with no complaint of urinary or bowel incontinence. No gait abnormalities involve on exam. Although confusion may represent as NPH, given stable status of CT and absence of additional symptoms, AMS 2/2 to NPH lower on differential vs. psych vs. polypharmacy, however will remain on differential. (4) Seizures Current visit: No Status: Acute Continue home medications. Fall precaution. Hold Tramadol. (5) HTN (hypertension) Current visit: No Status: Chronic Continue home meds. Qualifiers: Hypertension type: essential hypertension Qualified Code(s): I10 - Essential (primary) hypertension (6) Depression Current visit: No Status: Chronic Continue home medications. Psych on consult. Qualifiers: Depression Type: unspecified Qualified Code(s): F32.9 - Major depressive disorder, single episode, unspecified (7) CAD (coronary artery disease) Current visit: Yes Status: Chronic Continuous tele monitoring. Continue home medication. Qualifiers: Coronary Disease-Associated Artery/Lesion type: unspecified vessel or lesion type [place] vs. transplanted heart: unspecified whether [place] or transplanted heart Associated angina: angina presence unspecified Qualified Code(s): I25.10 - Atherosclerotic heart disease of [place] coronary artery without angina pectoris (8) Nicotine abuse Current visit: Yes Status: Acute Nicotine patch. Will recommend outpatient follow-up CT, per [place] recommendation. (9) DVT prophylaxis Current visit: No Status: Acute Heparin SubQ 5000 U TID (10) Code status needs review Current visit: Yes Status: Acute When asked wishes in regards to code status, pt exhibiting tangential speech and proceeded to talk about driving to [place] with RN in room. Will defer to full code at this time. Internal Medicine - H&P: HPI Chief complaint: Altered Mental Status Admitted From: Home History of present illness: Ms. Bowles is a 67 year old female with depression and NPH presenting with acute altered mental status. Pt states she lives at home alone and fell, she is unable to recount at what times. States she fell in hallway on bare floor and hit her head. Endorses LOC. States she called EMS herself with use of here cellphone. States she has not been able to sleep consistently. States that recently she found news regarding patient's son sexual orientation, which caused her distress. States she also hear a loud "thumping" noise in her room. Denies any visual hallucinations. States that she occasionally feels her head goes "empty". Past Med Surg Social Fam HX - Past Medical History Medical history: coronary artery disease, hypertension, myocardial infarction, other Psychiatric history: depression, prior suicide attempt - Past Surgical History Surgical History: non-contributory - Social History Smoking Status: Current every day smoker Smokeless Tobacco Status: No Alcohol use: none Drug use: none - Family History Mother Hx Family Cardiac Disorders: Yes Internal Medicine - H&P: Meds Citalopram [CeleXA] 20 mg PO DAILY 01/27/17 [History] Dicyclomine [Bentyl] 20 mg PO QID PRN 01/27/17 [History] Lisinopril [Zestril] 5 mg PO DAILY 01/27/17 [History] Ranitidine HCl [Zantac] 300 mg PO DAILY 01/27/17 [History] Topiramate [Topamax] 25 mg PO DAILY 01/27/17 [History] rOPINIRole [Requip] 2 mg PO HS 01/27/17 [History] ALPRAZolam [Xanax 0.5 MG Tablet] 0.5 mg PO BID #20 03/17/17 [Rx] Tramadol HCl [Ultram] 50 mg PO Q8H PRN #20 03/17/17 [Rx] Thiamine (B-1) [Vitamin B-1] 100 mg PO DAILY #30 tablet 07/27/17 [Rx] Aspirin/Acetaminophen/Caffeine [Excedrin Migraine Caplet] 2 each PO Q6H PRN [History] Cranberry Fruit Concentrate [Cranberry] 450 mg PO DAILY 10/09/17 [History] Loperamide HCl [Anti-Diarrheal] 2 mg PO PER PKG DI PRN 10/09/17 [History] Meloxicam [Meloxicam] 15 mg PO DAILY 10/09/17 [History] Metoprolol Succinate [Metoprolol Succinate] 50 mg PO DAILY 10/09/17 [History] Multivitamin [One Daily Multivitamin] 1 each PO DAILY 10/09/17 [History] Potassium Chloride [Potassium Chloride] 10 meq PO TID 10/09/17 [History] Prevagen 1 tab PO DAILY 10/09/17 [History] Simethicone [Gas-X] 80 mg PO TIDAC 10/09/17 [History] Tizanidine HCl [Tizanidine HCl] 2 mg PO HS 10/09/17 [History] 3 Allergy/AdvReac Type Severity Reaction Status Date / Time Penicillins [PCN] Allergy See Verified 10/09/17 15:55 Comments morphine AdvReac Itching Verified 01/27/17 21:40 All Systems PM: A 10-system review of systems was performed and is negative for pertinent findings except as documented above in the HPI. - Constitutional Constitutional: falls - EENT Ears: as per HPI - Neurological Neurological ROS: as per HPI - Constitutional Vitals: Temp Pulse Resp BP Pulse Ox 98 F 84 18 162/75 97 10/09/17 16:01 10/09/17 19:54 10/09/17 19:54 10/09/17 19:54 10/09/17 19:54 General appearance: Present: no acute distress Exam: Tangential speech. Alert to person. Alert to place. Able to recall date of . Unable to state year. - Head Head exam: Present: atraumatic, normocephalic - Eye Eye exam: Present: EOMI. Absent: conjuntiva pink - Respiratory Respiratory exam: Present: CTAB. Absent: accessory muscle use, chest wall tenderness, respiratory distress - Cardiovascular Additional comments: Pt uncooperative to exam. 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 No magnetic gait. No waddling gait. Able to stand without loss of imbalance on own. Coordination: Rapid alternating movement - Pt unwilling to perform with left hand due to peripheral IV in left arm. Right: Slow speed in ISABELA, but accuracy and rhythm intact. No pronator drift. Intact uoiiml-dh-dfyp testing. No myoclonus, ticks, or dystonia observed. HEENT: No facial droop. Adequate facial strength. EOMI intact. No afferent pupillary defect. No dsyarthria. No difficulty swallowing. Attention: Hyperalert to sounds and external stimuli. Often tangential. Speech is occasionally goal-directed. Labile mood. Digit Span: 5 (Able to recount 5 random digits in sequence accurately). Unable to perform Vigilance "A" Test. Confusion assessment Method: Pt easily distractable. Pt exhibiting irrelevant conversation and illogical flow of ideas. Hyperalert to sounds and objects in room. Internal Med - H&P Results - Labs CBC & Chem 7: 10/09/17 16:03 10/09/17 16:03 Labs: Urinalysis, Utox reviewed with Dr. Owen. Utox positive for benzodiazapines. - Impressions ITS Impressions Chest X-Ray 10/09/17 15:43 IMPRESSION: No acute process. D/ / Canelo Oconnor MD / Canelo Oconnor MD Interpreting Provider: Canelo Oconnor MD Cervical Spine CT 10/09/17 15:44 IMPRESSION: 1. Stable ventricular prominence which suggests association with normal pressure hydrocephalus. 2. No acute intracranial abnormality. 3. Normal cervical spine alignment with multilevel degenerative changes. No acute fracture. 4. Indeterminate 3 mm solid nodule of the lateral right upper lobe (see recommendations). RECOMMENDATIONS: Fleischner Society guidelines for follow-up and management of incidentally detected pulmonary nodules: Single Solid Nodule: Nodule size less than 6 mm In a low-risk patient, no routine follow-up. In a high-risk patient, optional CT at 12 months. Nodule size equals 6-8 mm In a low-risk patient, CT at 6-12 months, then consider CT at 18-24 months. In a high-risk patient, CT at 6-12 months, then CT at 18-24 months. Nodule size greater than 8 mm In a low-risk patient, consider CT, PET/CT, or tissue sampling at 3 months. In a high-risk patient, consider CT, PET/CT, or tissue sampling at 3 months. Multiple Solid Nodules: Nodule size less than 6 mm In a low-risk patient, no routine follow-up. In a high-risk patient, optional CT at 12 months. Nodule size equals 6-8 mm In a low-risk patient, CT at 3-6 months, then consider CT at 18-24 months. In a high-risk patient, CT at 3-6 months, then CT at 18-24 months. Nodule size greater than 8 mm In a low-risk patient, CT at 3-6 months, then consider CT at 18-24 months. In a high-risk patient, CT at 3-6 months, then CT at 18-24 months. - Low risk patients include individuals with minimal or absent history of smoking and other known risk factors. - High risk patients include individuals with a history or smoking or known risk factors. Radiology 2017 http://pubs.rsna.org/doi/full/10.1148/radiol.[email or web address] D/ / 10/09/2017 16:48:04 Olegario Landrum MD / víctor Interpreting Provider: Olegario Landrum MD Head CT 10/09/17 15:44 IMPRESSION: 1. Stable ventricular prominence which suggests association with normal pressure hydrocephalus. 2. No acute intracranial abnormality. 3. Normal cervical spine alignment with multilevel degenerative changes. No acute fracture. 4. Indeterminate 3 mm solid nodule of the lateral right upper lobe (see recommendations). RECOMMENDATIONS: Fleischner Society guidelines for follow-up and management of incidentally detected pulmonary nodules: Single Solid Nodule: Nodule size less than 6 mm In a low-risk patient, no routine follow-up. In a high-risk patient, optional CT at 12 months. Nodule size equals 6-8 mm In a low-risk patient, CT at 6-12 months, then consider CT at 18-24 months. In a high-risk patient, CT at 6-12 months, then CT at 18-24 months. Nodule size greater than 8 mm In a low-risk patient, consider CT, PET/CT, or tissue sampling at 3 months. In a high-risk patient, consider CT, PET/CT, or tissue sampling at 3 months. Multiple Solid Nodules: Nodule size less than 6 mm In a low-risk patient, no routine follow-up. In a high-risk patient, optional CT at 12 months. Nodule size equals 6-8 mm In a low-risk patient, CT at 3-6 months, then consider CT at 18-24 months. In a high-risk patient, CT at 3-6 months, then CT at 18-24 months. Nodule size greater than 8 mm In a low-risk patient, CT at 3-6 months, then consider CT at 18-24 months. In a high-risk patient, CT at 3-6 months, then CT at 18-24 months. - Low risk patients include individuals with minimal or absent history of smoking and other known risk factors. - High risk patients include individuals with a history or smoking or known risk factors. Radiology 2017 http://pubs.rsna.org/doi/full/10.1148/radiol.3216130059 D/ / 10/09/2017 16:48:04 Olegario Landrum MD / víctor Interpreting Provider: Olegario Landrum MD <Marco Owen - Last Filed: 10/10/17 00:35> Date of Encounter: 10/10/17 Internal Medicine - H&P: HPI History of present illness: Ms. Bowles is a 67 year old female All Systems PM: A 10-system review of systems was performed and is negative for pertinent findings except as documented above in the HPI. - Constitutional Vitals: Temp Pulse Resp BP Pulse Ox 97.4 F L 75 14 147/90 99 10/09/17 22:48 10/09/17 22:48 10/09/17 22:48 10/09/17 22:48 10/09/17 22:48 Internal Med - H&P Results - Labs CBC & Chem 7: 10/09/17 16:03 10/09/17 16:03
[2017-10-09] MEDS ORDERED: Acetaminophen 325 MG TABLET PO PRN (23:04)
[2017-10-09] MEDS ORDERED: Ibuprofen 400 MG TABLET PO PRN (23:04)
[2017-10-09] MEDS ORDERED: Naloxone 0.4 MG/ML INJ IVP PRN (23:09)
[2017-10-09] MEDS ORDERED: 0.9 % Sodium Chloride 1,000 ML IVC SCH (23:15)
[2017-10-10] MEDS ORDERED: rOPINIRole 1 MG TABLET PO SCH (00:15)
[2017-10-10] MEDS ORDERED: tiZANidine 4 MG TABLET PO SCH (00:15)
[2017-10-10] MEDS ORDERED: ALPRAZolam 0.5 MG TABLET PO ONE (00:38)
[2017-10-10] MEDS: Thiamine (B-1) 100 MG TABLET PO SCH ×2 (02:37→09:22)
[2017-10-10] MEDS: Metoprolol XL (24 HR) Succ 50 MG TAB.ER.24H PO SCH ×2 (02:37→09:23)
[2017-10-10 05:23] LABS: Alanine Aminotransferase 30 Units/L (7-52); Albumin 3.2 g/dL (3.5-5.7); Albumin/Globulin Ratio 1.1 (1.1-2.2); Alkaline Phosphatase 149 Units/L (34-104); Aspartate Amino Transferase 28 Units/L (13-39); BUN/Creatinine Ratio 12 (6-26); Bilirubin,Total 0.5 mg/dL (0.3-1.0); Blood Urea Nitrogen 11 mg/dL (8-23); Calcium 9.2 mg/dL (8.6-10.3); Carbon Dioxide 27 mEq/L (23-29); Chloride 105 mEq/L (98-107); Globulin 2.8 g/dL (2.4-3.5); Glucose 157 mg/dL (70-105); Osmolality,Calculated 289 (280-300); Potassium 3.6 mEq/L (3.5-5.1); Sodium 138 mEq/L (136-145); eGFR For African Americans > 60 (> 60); eGFR For Non-African Americans > 60 (> 60)
[2017-10-10] MEDS ORDERED: *HR* Heparin 5,000 UNIT/ML VIAL SQ SCH (06:00)
[2017-10-10] MEDS ORDERED: ALPRAZolam 0.5 MG TABLET PO SCH (09:00)
[2017-10-10] MEDS ORDERED: Nicotine 21 MG PATCH.TD24 TD SCH (09:00)
[2017-10-10] MEDS ORDERED: Topiramate 25 MG TABLET PO SCH (09:00)
[2017-10-10] MEDS ORDERED: cefTRIAXone 1,000 MG in Water for inj. (sterile) 20 ML 10 ML IVPB SCH (12:00)
[2017-10-10 14:51] VITALS: BP 133/79
--- NOTE | 2017-10-10 15:37 | Consult Note ---
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 Bowles is a 67 year old female This patient presents with mental status changes. Her psychiatric history was suspicious for previous psychiatric treatment in the patient has been on Xanax. The patient reported memory complaints when she came in. Her past history indicates that she has been evaluated for neurosurgery but was told that she did not have NPH. And furthermore that she did not need a shunt. I was not able to review all of the outside records but the head CT is abnormal. On interview the patient has made a variety of abrupt and irrelevant statements. Her conversation is full of non sequiturs. The patient has an elevated and expansive mood. She is alert attentive and at times intrusive. CC: Yamileth Ballesteros CNP Past Med Surg Social Fam HX - Past Medical History Medical history: coronary artery disease, hypertension, myocardial infarction, other - Past Psychiatric History Psychiatric history: Reports: anxiety Family psychiatric history: Unknown Family History of Suicide: Unknown - Past Surgical History Surgical History: non-contributory - Social History Smoking Status: Current every day smoker Smokeless Tobacco Status: No Alcohol use: none Drug use: none - Family History Mother Hx Family Cardiac Disorders: Yes Medications & Allergies Citalopram [CeleXA] 20 mg PO DAILY 01/27/17 [History] Dicyclomine [Bentyl] 20 mg PO QID PRN 01/27/17 [History] Lisinopril [Zestril] 5 mg PO DAILY 01/27/17 [History] Ranitidine HCl [Zantac] 300 mg PO DAILY 01/27/17 [History] Topiramate [Topamax] 25 mg PO DAILY 01/27/17 [History] rOPINIRole [Requip] 2 mg PO HS 01/27/17 [History] ALPRAZolam [Xanax 0.5 MG Tablet] 0.5 mg PO BID #20 03/17/17 [Rx] Tramadol HCl [Ultram] 50 mg PO Q8H PRN #20 03/17/17 [Rx] Thiamine (B-1) [Vitamin B-1] 100 mg PO DAILY #30 tablet 07/27/17 [Rx] Aspirin/Acetaminophen/Caffeine [Excedrin Migraine Caplet] 2 each PO Q6H PRN [History] Cranberry Fruit Concentrate [Cranberry] 450 mg PO DAILY 10/09/17 [History] Loperamide HCl [Anti-Diarrheal] 2 mg PO PER PKG DI PRN 10/09/17 [History] Meloxicam [Meloxicam] 15 mg PO DAILY 10/09/17 [History] Metoprolol Succinate [Metoprolol Succinate] 50 mg PO DAILY 10/09/17 [History] Multivitamin [One Daily Multivitamin] 1 each PO DAILY 10/09/17 [History] Potassium Chloride [Potassium Chloride] 10 meq PO TID 10/09/17 [History] Prevagen 1 tab PO DAILY 10/09/17 [History] Simethicone [Gas-X] 80 mg PO TIDAC 10/09/17 [History] Tizanidine HCl [Tizanidine HCl] 2 mg PO HS 10/09/17 [History] 3 Allergy/AdvReac Type Severity Reaction Status Date / Time Penicillins [PCN] Allergy See Verified 10/09/17 15:55 Comments morphine AdvReac Itching Verified 01/27/17 21:40 Review of Systems Psychiatric: Reports: anxiety, confusion, irritability Psychiatry Exam - Constitutional Vitals: Temp Pulse Resp BP Pulse Ox 97.5 F L 77 16 133/79 98 10/10/17 11:50 10/10/17 11:50 10/10/17 11:50 10/10/17 11:50 10/10/17 11:50 General appearance: age & developmentally appropriate, well-groomed, inappropriate - Musculoskeletal Station: erect Strength & Tone: normal for patient - Psychiatric Patient Orientation: Yes Person, Yes Place Level of alertness: Alert Behavior: impulsive, dramatic Psychomotor activity: Increased Eye Contact: Prolonged Contact Mood Description: Expansive Affect description: euthymic Speech Volume: Normal Speech pattern: spontaneous, excessive Language & Vocabulary: consistent with education Thought Process: Loose Associations, Tangential, Flight of Ideas Thought Content: Yes Ideas of reference Attention Span Ability: Capable of Focused Attention Memory Description: Immediate Impaired, Remote Intact Patient Reliability: Questionable Historian Intelligence Estimate: Average Judgment: Limited Insight: Minimal Results - Labs Labs: Laboratory Last Values WBC 11.5 K/mcL (4.3-11.1) H 10/09/17 16:03 RBC 4.36 M/mcL (3.82-4.97) 10/09/17 16:03 Hgb 14.2 g/dL (11.5-15.4) 10/09/17 16:03 Hct 43.4 % (35.3-44.9) 10/09/17 16:03 MCV 99.5 fL (83.0-100.0) 10/09/17 16:03 MCH 32.6 pg (28.0-33.3) 10/09/17 16:03 MCHC 32.7 g/dL (31.6-35.5) 10/09/17 16:03 RDW 14.4 % (11.5-14.5) 10/09/17 16:03 Plt Count 372 K/mcL (140-400) 10/09/17 16:03 MPV 9.4 fL (9.4-12.4) 10/09/17 16:03 Immature Gran % 1.0 % (0-4) 10/09/17 16:03 Seg Neutrophils % 66.8 % 10/09/17 16:03 Lymphocytes % 21.6 % 10/09/17 16:03 Monocytes % 10.0 % 10/09/17 16:03 Eosinophils % 0.2 % 10/09/17 16:03 Basophils % 0.4 % 10/09/17 16:03 Neutrophils # 7.7 K/mcL (1.6-8.9) 10/09/17 16:03 Lymphocytes # 2.5 K/mcL (0.6-4.6) 10/09/17 16:03 Monocytes # 1.2 K/mcL (0.0-1.3) 10/09/17 16:03 Eosinophils # 0.0 K/mcL (0.0-0.6) 10/09/17 16:03 Basophils # 0.1 K/mcL (0.0-0.2) 10/09/17 16:03 PT 10.5 Seconds (9.4-12.1) 10/09/17 16:03 INR 1.0 10/09/17 16:03 APTT 24.3 Seconds (26.0-36.0) L 10/09/17 16:03 VBG pH 7.37 pH Units (7.32-7.42) 10/09/17 16:26 VBG pCO2 42 mmHg (41-51) 10/09/17 16:26 VBG pO2 41 mmHg (25-50) 10/09/17 16:26 VBG HCO3 24 mEq/L (21-27) 10/09/17 16:26 Carboxyhemoglobin 5.1 % (0-5) H 10/09/17 16:03 Sodium 138 mEq/L (136-145) 10/10/17 03:08 Potassium 3.6 mEq/L (3.5-5.1) 10/10/17 03:08 Chloride 105 mEq/L (98-107) 10/10/17 03:08 Carbon Dioxide 27 mEq/L (23-29) 10/10/17 03:08 BUN 11 mg/dL (8-23) 10/10/17 03:08 Creatinine 0.92 mg/dL (0.60-1.20) 10/10/17 03:08 Est GFR ( Amer) > 60 (> 60) 10/10/17 03:08 Est GFR (Non-Af Amer) > 60 (> 60) 10/10/17 03:08 BUN/Creatinine Ratio 12 (6-26) 10/10/17 03:08 Glucose 157 mg/dL (70-105) H 10/10/17 03:08 Calculated Osmolality 289 (280-300) 10/10/17 03:08 Calcium 9.2 mg/dL (8.6-10.3) 10/10/17 03:08 Total Bilirubin 0.5 mg/dL (0.3-1.0) 10/10/17 03:08 Direct Bilirubin 0.2 mg/dL (0.0-0.2) 10/09/17 16:03 Indirect Bilirubin 0.4 mg/dL (0.0-1.2) 10/09/17 16:03 AST 28 Units/L (13-39) 10/10/17 03:08 ALT 30 Units/L (7-52) 10/10/17 03:08 Alkaline Phosphatase 149 Units/L (34-104) H 10/10/17 03:08 Troponin I < 0.03 ng/mL (< 0.04) 10/09/17 16:03 Serum Total Protein 6.0 g/dL (6.4-8.9) L 10/10/17 03:08 Albumin 3.2 g/dL (3.5-5.7) L 10/10/17 03:08 Globulin 2.8 g/dL (2.4-3.5) 10/10/17 03:08 Albumin/Globulin Ratio 1.1 (1.1-2.2) 10/10/17 03:08 TSH 0.738 mcIU/mL (0.340-5.600) 10/09/17 16:03 Urine Color Dark Yellow (Yellow) 10/09/17 17:28 Urine Clarity Cloudy (Clear) A 10/09/17 17:28 Urine pH 5.5 pH Units (5.0-8.0) 10/09/17 17:28 Ur Specific Ladd 1.027 (1.010-1.025) H 10/09/17 17:28 Urine Protein Negative mg/dL (Neg-Trace) 10/09/17 17:28 Urine Glucose (UA) 500 mg/dL (Normal) H 10/09/17 17:28 Urine Ketones 40 mg/dL (Negative) H 10/09/17 17:28 Urine Blood Trace (Negative) H 10/09/17 17:28 Urine Nitrite Negative (Negative) 10/09/17 17:28 Urine Bilirubin Small (Negative) H 10/09/17 17:28 Urine Urobilinogen Normal mg/dL (Normal) 10/09/17 17:28 Ur Leukocyte Esterase Small (Negative) H 10/09/17 17:28 Urine Microscopic RBC 5-15 per hpf (0-3) H 10/09/17 17:28 Urine Microscopic WBC 15-30 per hpf (0-3) H 10/09/17 17:28 Ur Squamous Epith Cells Many per lpf (None-Few) H 10/09/17 17:28 Urine Bacteria None Seen per hpf (None-Few) 10/09/17 17:28 Hyaline Casts Few per lpf (None-Few) 10/09/17 17:28 Ur Culture Indicated? NO. (NO) 10/09/17 17:28 Urine Opiates Screen Negative ng/mL (Yqowmf=593) 10/09/17 17:28 Ur Barbiturates Screen Negative ng/mL (Xyuodb=288) 10/09/17 17:28 Ur Phencyclidine Scrn Negative ng/mL (Cutoff=25) 10/09/17 17:28 Ur Amphetamines Screen Negative ng/mL (Rrkxwn=0900) 10/09/17 17:28 U Benzodiazepines Scrn Positive ng/mL (Emfete=723) H 10/09/17 17:28 Urine Cocaine Screen Negative ng/mL (Cutoff= 300) 10/09/17 17:28 U Marijuana (THC) Screen Negative ng/mL (Cutoff = 50) 10/09/17 17:28 Ethyl Alcohol < 10 mg/dL (0-10) 10/09/17 16:03 Consult Discharge Plan - Plan Referrals: Kj Paris MD [Primary Care Provider] -
--- NOTE | 2017-10-10 15:49 | Discharge Summary ---
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 Bowles is a 67 year old female with a history of depression who presented to the emergency room with acute altered mental status. She stated she lives at home alone and she fell and was unable to recount the occurrence or how long she was down. She states she hit her head and endorses LOC. She accessed EMS via her cell phone. Wearing to the note she has not been sleeping consistently and recently found days regarding her patient's son sexual orientation which caused her distress. She states she is also been hearing about thumping noises in her room. She denied any visual hallucinations but states he occasionally feels that her head goes " empty". She reported a history of normal pressure hydrocephalus diagnosed in 2016 that has been stable. She was started on antibiotics for potential of UTI. Urine showed no bacteria and small leukocyte esterase, many squamous epithelial cells. Urine tox screen was positive for benzodiazepines and alcohol less than 10. Her behavior has been erratic here on the floor. She tox at times not making any sense. She is also rather confrontational at times and belligerent and rude. At other times she is pleasant and cooperative. She was seen by the psychiatry department and recommended inpatient stay. The patient is agreeable. A bed has been arranged and she will be transferred to the inpatient psychiatric department here at [place]. Impression is that of polypharmacy. Patient with history of seizures on tramadol at home. This has been held, institute fall precautions and continue her other home medicine. Nicotine abuse, continue NicoDerm patch. Patient is afebrile and blood pressure is stable. She is satting well on room air. Discharge discussed with: patient, nurse, compensation consultant Time spent discussing smoking cessation with patient: 3 to 10 minutes - Time Spent with Patient Total time spent providing and/or coordinating discharge services: Less than 30 minutes - Discharge Medications Prescriptions: Nitrofurantoin Monohyd/M-Cryst [Macrobid 100 mg Capsule] 100 mg PO BID #5 capsule Home Medications: Citalopram [CeleXA] 20 mg PO DAILY 01/27/17 [History] Lisinopril [Zestril] 5 mg PO DAILY 01/27/17 [History] Ranitidine HCl [Zantac] 300 mg PO DAILY 01/27/17 [History] Topiramate [Topamax] 25 mg PO DAILY 01/27/17 [History] rOPINIRole [Requip] 2 mg PO HS 01/27/17 [History] Thiamine (B-1) [Vitamin B-1] 100 mg PO DAILY #30 tablet 07/27/17 [Rx] Aspirin/Acetaminophen/Caffeine [Excedrin Migraine Caplet] 2 each PO Q6H PRN [History] Cranberry Fruit Concentrate [Cranberry] 450 mg PO DAILY 10/09/17 [History] Loperamide HCl [Anti-Diarrheal] 2 mg PO PER PKG DI PRN 10/09/17 [History] Meloxicam 15 mg PO DAILY 10/09/17 [History] Metoprolol Succinate 50 mg PO DAILY 10/09/17 [History] Multivitamin [One Daily Multivitamin] 1 each PO DAILY 10/09/17 [History] Potassium Chloride 10 meq PO TID 10/09/17 [History] Prevagen 1 tab PO DAILY 10/09/17 [History] Simethicone [Gas-X] 80 mg PO TIDAC 10/09/17 [History] Nicotine Patch [Nicoderm] 21 mg TD DAILY patch.td24 10/10/17 [Rx] Nitrofurantoin Monohyd/M-Cryst [Macrobid 100 mg Capsule] 100 mg PO BID #5 capsule 10/10/17 [Rx] Allergies/Adverse Reactions: 3 Allergy/AdvReac Type Severity Reaction Status Date / Time Penicillins [PCN] Allergy See Verified 10/09/17 15:55 Comments morphine AdvReac Itching Verified 01/27/17 21:40 Date of admission: 10/09/17 21:20 Primary care physician: Kj Paris MD Consults: 10/09/17 23:41 Consult to Physical Therapy [CONS] Routine Comment: Evaluate, develop and implement POC Reason for Consult: Hx of Falls Does patient have active BEDREST order?: No Is patient medically & hemodynamically stable?: Yes Consult to Psychiatry [CONS] Routine Consulting Provider: Psychiatry Meryl Reason for Consult: Depression, with hx of psych, AMS Call Completed: No Discharging clinician: Shannan Vernon Anticipated date of discharge: 10/10/17 - Constitutional Vitals: Temp Pulse Resp BP Pulse Ox 97.5 F L 77 16 133/79 98 10/10/17 11:50 10/10/17 11:50 10/10/17 11:50 10/10/17 11:50 10/10/17 11:50 General appearance: Present: A&O X 2, no acute distress Exam: Inappropriate at times and not cooperative at times - Head Head exam: Present: atraumatic, normocephalic - Eye Eye exam: Present: PERRL, conjuntiva pink, sclera anicteric Pupils: Present: PERRL - Neck Neck exam general surgery: Present: supple, trachea midline. Absent: lymphadenopathy - Respiratory Respiratory exam: Present: CTAB. Absent: accessory muscle use, rales, rhonchi, wheezes - Cardiovascular Cardiovascular exam: Present: RRR, +S1, +S2. Absent: diastolic murmur, gallop, rubs, systolic murmur - GI/Abdominal GI/Abdominal exam: Present: normal bowel sounds, soft, no peritoneal signs. Absent: distended, tenderness - Extremities Exam Extremities exam: Present: warm, radial pulses palpable and symmetrical. Absent : calf tenderness, cyanotic, pedal edema - Neurological Exam Neurological exam: Present: alert, CN II-XII intact, no focal deficits. Absent : pronater drift, facial droop, speech deficit - Skin Skin exam: Present: dry, intact, normal color, warm - Patient Status Disposition: Transfer Psychiatric Hosp Condition: Fair Functional capacity at discharge: independent ambulation Overall status at discharge: patient is not back to baseline - Discharge Instructions Follow Up With: Kj Paris MD [Primary Care Provider] - - Diet and Activity Activity: increase activity as tolerated Diet: low fat, low cholesterol, low salt diet
[2017-10-10] MEDS ORDERED: Melatonin 3 MG TABLET PO SCH (21:00)
--- NOTE | 2017-10-10 23:25 | Electrocardiograph Report ---
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
== END 2017-10-10 17:08 ==
LOC: 3BNU 15:18 → EMEROO 15:18 → 3BNU 22:01
PROVIDERS: ADMIT Hospitalist; ATTEND Registered Nurse

== ENCOUNTER 2017-10-10 17:17 | Inpatient (IN) ==
[2017-10-10] MEDS ORDERED: Haloperidol Lactate 5 MG/ML VIAL IM PRN (19:56)
[2017-10-10] MEDS ORDERED: Mag Hydrox/Al Hydrox/Simeth 30 ML UDC PO PRN (19:56)
[2017-10-10] MEDS ORDERED: MOM Conc 10 ML UD.LIQ PO PRN (19:56)
[2017-10-10] MEDS ORDERED: *HR* LORazepam 2 MG/ML VIAL IM PRN (19:56)
[2017-10-10] MEDS ORDERED: rOPINIRole 1 MG TABLET PO SCH (21:00)
[2017-10-10] MEDS: hydrOXYzine pamoate 25 MG CAPSULE PO PRN (21:50)
[2017-10-10] MEDS: Ibuprofen 400 MG TABLET PO PRN (21:50)
[2017-10-10] MEDS: Nitrofurantoin (BID) 100 MG CAPSULE PO SCH (21:50)
[2017-10-11] MEDS: Acetaminophen/Aspirin/Caffeine TABLET PO PRN (04:03)
[2017-10-11] MEDS: hydrOXYzine pamoate 25 MG CAPSULE PO PRN (04:27)
[2017-10-11] MEDS ORDERED: *HR* OxyCODONE/APAP 5/325 TABLET PO ONE (05:30)
[2017-10-11] MEDS: OLANZapine 5 MG TAB.RAPDIS PO PRN (05:59)
[2017-10-11] MEDS ORDERED: Topiramate 25 MG TABLET PO SCH (09:00)
[2017-10-11] MEDS: Multivit/Ca/Min/Fe/FA 1 TAB TABLET PO SCH (09:10)
[2017-10-11] MEDS: Nitrofurantoin (BID) 100 MG CAPSULE PO SCH ×2 (09:10→19:43)
[2017-10-11] MEDS: Simethicone 80 MG TAB.CHEW PO SCH ×3 (09:11→15:19)
[2017-10-11] MEDS: Thiamine (B-1) 100 MG TABLET PO SCH (09:11)
[2017-10-11] MEDS: Metoprolol XL (24 HR) Succ 50 MG TAB.ER.24H PO SCH (09:11)
[2017-10-11] MEDS: Famotidine 20 MG TABLET PO SCH (09:11)
[2017-10-11] MEDS: Nicotine 21 MG PATCH.TD24 TD SCH (09:14)
[2017-10-11] MEDS: (Cranberry Fruit Concentrate [Cranberry] 450 MG) PO SCH (09:15)
[2017-10-11] MEDS: (Prevagen 1 TAB) PO SCH (09:15)
--- NOTE | 2017-10-11 15:26 | Psychiatry History & Physical ---
Date of Encounter: 10/11/17 Time of Encounter: 15:00 History of Present Illness Patient Stated Chief Complaint: I want to give blood Medicare Admission Attestation: For traditional Medicare patients the provided hospital inpatient services are reasonable and necessary and in the case of services not specified as inpatient -only under 42 CFR 419.22 (n), that they are appropriately provided as inpatient services in accordance 42 CFR 412.3. For Critical Access Hospital the patient may reasonably be expected to be discharged or transferred to a hospital within 96 hours after admission to the Critical Access Hospital. Admitted From: Intrahospital Transfer Plans for Post Hospital Care: Transfer Alf Care History of Present Illness: Ms. Bowles is a 67 year old female Chief complaint I came to give blood History of present illness: This patient presents with a history of significant decline. After a fall in her home she was brought in and found to have mental status changes. On my examination and the hospital I found that she was impulsive perseverative disinhibited with poor memory and concentration. The patient had increasing disorganization and was not knowledgeable about date and day. The patient had an elevated irritable mood she was expansive and overly gregarious. She made some inappropriate or silly comments. Her associations were loose and sometimes tangential. The patient is overall bright tropic. There is no fluctuation in level of consciousness. She misidentified a few things but did not have alo hallucinations she did not have delusions of grandiosity. This appears to be a new onset manic episode. It was possible that this was a switch induced by the medicine citalopram a previous diagnosis of generalized anxiety disorder was given the patient was previously on Xanax. But the patient has a gait disturbance and an MRI found enlargement of the ventricles. Nonetheless it was felt that she did not need shunting. Furthermore the patient had downward projection of the cerebellar tonsils. This can be found in Arnold CHAIRI syndrome type I and sometimes includes a communicating hydrocephalus. The patient's son is a truck driver supervisor who lives nearby and may provide further history. The patient reports that 3 years ago she had a stomach surgery and has had some difficulty eating. Prior to that she had Crohn's. She also reports headaches she reports I disturbance. The family history is significant for a brother and sister and a younger brother but alcohol is not clear that there is a psychiatric history there is no history of suicide in the patient's father may drank alcohol was then used moonshine. 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 She went out on disability probably due to Crohn's. She lives by herself On examination this patient has a positive Romberg she is unsteady gaits she has bilateral pedal edema she has intact position sense but may have reduced vibration sense. I reviewed the laboratory studies in neurologic consultation. Support and another neurosurgery did not think that she needed a shunt neurology thought she might have had seizures in the patient denies this. She has not had an EEG and I have not been able to review the head CT in the MRI images myself just the reports. Past Med Surg Social Fam HX - Past Medical History Source: patient, old records reviewed Medical history: coronary artery disease, hypertension, myocardial infarction, other - Past Psychiatric History Psychiatric history: Reports: no psych history Family History of Suicide: None - Past Surgical History Surgical History: non-contributory - Social History Smoking Status: Current every day smoker Smokeless Tobacco Status: No Alcohol use: none Drug use: none Occupational status: disabled Current living situation: Home - Independent Activity Level: Uses cane/walker Recent Out of Country Travel Within the Last 8 Weeks: No Exposure or Possible Exposure to Illness During Travel: No - Family History Mother Adopted: Am[place]: Amanuel Family Member Ethnicity: Non- Living Status: Age at : 51 Cause of : cancer Hx Family Cardiac Disorders: No Hx Family Respiratory Disorders: No Hx Family Cancer: Yes Hx Family GI Disorders: ("not sure") Hx Family Genitourinary Disorders: No Hx Family Endocrine Disorder: No Hx Family Musculoskeletal Disorders: No Hx Family Neuromuscular Disorders: No Hx Family Neurologic Disorders: No Hx Family HEENT Disorders: No Hx Family Autoimmune Disorders: No Hx Family Reproductive Disorders: No ("no, had 12 children") Hx Family Psychosocial Disorders: No Hx Family Medical Disorders: No Medications & Allergies Citalopram [CeleXA] 20 mg PO DAILY 01/27/17 [History] Lisinopril [Zestril] 5 mg PO DAILY 01/27/17 [History] Ranitidine HCl [Zantac] 300 mg PO DAILY 01/27/17 [History] Topiramate [Topamax] 25 mg PO DAILY 01/27/17 [History] rOPINIRole [Requip] 2 mg PO HS 01/27/17 [History] Thiamine (B-1) [Vitamin B-1] 100 mg PO DAILY #30 tablet 07/27/17 [Rx] Aspirin/Acetaminophen/Caffeine [Excedrin Migraine Caplet] 2 each PO Q6H PRN [History] Cranberry Fruit Concentrate [Cranberry] 450 mg PO DAILY 10/09/17 [History] Loperamide HCl [Anti-Diarrheal] 2 mg PO PER PKG DI PRN 10/09/17 [History] Meloxicam 15 mg PO DAILY 10/09/17 [History] Metoprolol Succinate 50 mg PO DAILY 10/09/17 [History] Multivitamin [One Daily Multivitamin] 1 each PO DAILY 10/09/17 [History] Potassium Chloride 10 meq PO TID 10/09/17 [History] Prevagen 1 tab PO DAILY 10/09/17 [History] Simethicone [Gas-X] 80 mg PO TIDAC 10/09/17 [History] Nicotine Patch [Nicoderm] 21 mg TD DAILY patch.td24 10/10/17 [Rx] Nitrofurantoin Monohyd/M-Cryst [Macrobid 100 mg Capsule] 100 mg PO BID #5 capsule 10/10/17 [Rx] 3 Allergy/AdvReac Type Severity Reaction Status Date / Time Penicillins [PCN] Allergy See Verified 10/09/17 15:55 Comments morphine AdvReac Itching Verified 01/27/17 21:40 Review of Systems Constitutional: Reports: weight change. Denies: fever, chills, weakness Ears, Nose, Throat: Denies: ear pain, throat pain, dental pain, hearing loss, congestion Cardiovascular: Denies: chest pain, palpitations, dyspnea on exertion Respiratory: Denies: cough, dyspnea, wheezes Gastrointestinal: Denies: abdominal pain, nausea, vomiting, diarrhea, constipation Genitourinary female: Denies: urgency, dysuria, frequency, abnormal menses, dyspareunia Musculoskeletal: Denies: joint swelling, joint pain Integumentary: Denies: rash, lesions, pruritus Neurological: Reports: headache, confusion, abnormal gait. Denies: weakness, numbness, memory loss Psychiatric: Reports: depression, difficulty concentrating, irritability Endocrine: Denies: fatigue, heat or cold intolerance Hematologic/Lymphatic: Reports: easy bleeding. Denies: easy bruising, lymphadenopathy Exam - HEENT Head exam IM: Present: atraumatic, normal inspection, normocephalic Eye exam IM: Present: conjunctival injection, nystagmus ENT exam IM: Present: mucous membranes dry - Neurological Neurological exam: Present: alert - Respiratory Respiratory exam IM: Present: CTAB - GI/Abdominal GI/Abdominal exam IM: Present: normal bowel sounds - Extremities Extremities exam IM: Present: pedal edema - Skin Skin exam IM: Present: dry - Constitutional Vitals: Temp Pulse Resp BP 97 F L 78 16 139/69 10/11/17 09:00 10/11/17 09:00 10/11/17 09:00 10/11/17 09:00 General appearance: age & developmentally appropriate, well-groomed, thin - Musculoskeletal Gait: unsteady, ataxic Strength & Tone: mild weakness - Psychiatric Patient Orientation: Yes Person, Yes Time, Yes Place Level of alertness: Alert Behavior: impulsive, talkative, dramatic Eye Contact: Maintains Eye Contact Mood Description: Expansive Affect description: congruent with mood Speech Volume: Excessive Variation Speech pattern: Inappropriate to situation Language & Vocabulary: high school level Thought Process: Tangential, Confabulation Thought Content: Yes Intact Attention Span Ability: Unable to Sustain Attention Memory Description: Immediate Impaired, Recent Impaired, Remote Intact Patient Reliability: Not Reliable Historian Fund of knowledge: Yes abstraction ability Intelligence Estimate: Average Judgment: Poor Insight: Minimal 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 Current visit: No Status: Acute Plan: Admit inpatient for safety and stabilization, Close observation, Suicide Precautions per unit protocol Risks, benefits, side effects, alternatives discussed w/pt: Yes Patient agreeable to treatment: Yes Plans for Post Hospital Care: Home Estimated Length of Stay (Days): 14 (2) Migraine Current visit: No Status: Chronic Plan: Admit inpatient for safety and stabilization, Close observation, Encourage participation in unit milieu Risks, benefits, side effects, alternatives discussed w/pt: Yes Patient agreeable to treatment: Yes Plans for Post Hospital Care: Hospice - Home Qualifiers: Migraine type: unspecified Status migrainosus presence: without status migrainosus Intractability: not intractable Qualified Code(s): G43.909 - Migraine, unspecified, not intractable, without status migrainosus (3) Confusion Current visit: No Status: Acute Plan: Admit inpatient for safety and stabilization, Close observation, Suicide Precautions per unit protocol, Encourage participation in unit milieu, Group Therapy, Monitor sleep, Monitor appetite, Secure weapons, Family/Supportive other meeting Risks, benefits, side effects, alternatives discussed w/pt: Yes Patient agreeable to treatment: Yes Plans for Post Hospital Care: Home (4) Gait instability Current visit: No Status: Acute Plan: Close observation, Encourage participation in unit milieu Risks, benefits, side effects, alternatives discussed w/pt: Yes Patient agreeable to treatment: Yes
[2017-10-11] MEDS: Ibuprofen 400 MG TABLET PO PRN (19:43)
[2017-10-11] MEDS: *HR* LORazepam 1 MG TABLET PO PRN (19:43)
[2017-10-11] MEDS ORDERED: rOPINIRole 1 MG TABLET PO SCH (21:00)
[2017-10-12] MEDS: Acetaminophen/Aspirin/Caffeine TABLET PO PRN ×2 (06:48→21:20)
[2017-10-12] MEDS: Simethicone 80 MG TAB.CHEW PO SCH ×3 (07:43→16:53)
[2017-10-12] MEDS: Nitrofurantoin (BID) 100 MG CAPSULE PO SCH ×2 (08:33→21:20)
[2017-10-12] MEDS: Multivit/Ca/Min/Fe/FA 1 TAB TABLET PO SCH (08:33)
[2017-10-12] MEDS: Thiamine (B-1) 100 MG TABLET PO SCH (08:34)
[2017-10-12] MEDS: Famotidine 20 MG TABLET PO SCH (08:35)
[2017-10-12] MEDS: hydrOXYzine pamoate 25 MG CAPSULE PO PRN (08:35)
[2017-10-12] MEDS: Nicotine 21 MG PATCH.TD24 TD SCH (08:36)
[2017-10-12] MEDS: (Prevagen 1 TAB) PO SCH (08:38)
[2017-10-12] MEDS: (Cranberry Fruit Concentrate [Cranberry] 450 MG) PO SCH (08:38)
[2017-10-12] MEDS: Metoprolol XL (24 HR) Succ 50 MG TAB.ER.24H PO SCH (09:44)
--- NOTE | 2017-10-12 11:18 | Psychiatry Progress Note ---
Date of Encounter: 10/12/17 Time of Encounter: 11:00 Subjective Interval history: The patient tells me that she was seen by a neurosurgeon but she refused to have the shunt put in. She has headache she has Arnold-Chiari malformation type she has evidence of hydrocephalus with dilatation of the lateral importance anteriorly the third ventricle but not the fourth ventricle. I am not able to look at the flow studies. She is scheduled to follow up with Dr. Ellis. I have spoken to the radiologist Dr. Landrum who told me that the patient has an MRI confirming1. The patient remains intrusive disinhibited. She is agitated she required when necessary Ativan. She is responded partially to Zyprexa. I am hesitant to use lithium carbamazepine Depakote or other medicines. The B12 of TSH and ESR within normal limits and out other etiologies of this. The patient's rapidity of decline cannot be determined on interview. We are hoping to talk to her son who can help with this. I will reduce the Requip further we have stopped topiramate we have stopped citalopram she is on no benzodiazepine. And I will increase Zyprexa for her treatment. The patient could be considered for a specialty clinic that deals in Arnold Chiari malformation Review of Systems Constitutional: Reports: weight change Cardiovascular: Reports: syncope Musculoskeletal: Reports: joint pain Neurological: Reports: headache, numbness, confusion, memory loss, abnormal gait Psychiatric: Reports: depression, change in appetite, memory loss, difficulty concentrating, irritability Endocrine: Reports: heat or cold intolerance Results - Vital Signs Vital Signs: Temp Pulse Resp BP 97.8 F 94 16 140/87 10/11/17 20:42 10/11/17 20:42 10/11/17 20:42 10/11/17 20:42 - Labs Labs: Laboratory Results - last 24 hr 10/12/17 10/12/17 10/12/17 07:49 07:49 07:49 ESR 13 Vitamin B12 533 TSH 1.241 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 Current visit: No Status: Acute Plan: Continue hospitalization, Close observation, Suicide Precautions per unit protocol, Monitor sleep, Monitor appetite, Family/Supportive other meeting Risks, benefits, side effects, alternatives discussed w/pt: Yes Patient agreeable to treatment: Yes (2) Migraine Current visit: No Status: Chronic Plan: Continue hospitalization, Encourage participation in unit milieu Risks, benefits, side effects, alternatives discussed w/pt: Yes Patient agreeable to treatment: Yes Qualifiers: Migraine type: unspecified Status migrainosus presence: without status migrainosus Intractability: not intractable Qualified Code(s): G43.909 - Migraine, unspecified, not intractable, without status migrainosus (3) Confusion Current visit: No Status: Acute Plan: Continue hospitalization, Monitor appetite Risks, benefits, side effects , alternatives discussed w/pt: Yes Patient agreeable to treatment: Yes (4) Gait instability Current visit: No Status: Acute Plan: Continue hospitalization, Monitor appetite, Family/Supportive other meeting Risks, benefits, side effects, alternatives discussed w/pt: Yes Patient agreeable to treatment: Yes Consult Discharge Plan - Plan Referrals: Yodit Ellis MD [Partnered Physician] - 10/30/17 9:30 am (The above appointment is with Dr. Ellis for neurology follow-up.) NONE,PCP [Primary Care Provider] - Psychiatry Exam - Constitutional Vitals: Temp Pulse Resp BP 97.8 F 94 16 140/87 10/11/17 20:42 10/11/17 20:42 10/11/17 20:42 10/11/17 20:42
[2017-10-12] MEDS: Ibuprofen 400 MG TABLET PO PRN (15:48)
[2017-10-12] MEDS: rOPINIRole 1 MG TABLET PO SCH (21:19)
[2017-10-12] MEDS: OLANZapine 10 MG TAB.RAPDIS PO SCH (21:20)
[2017-10-13] MEDS: Ibuprofen 400 MG TABLET PO PRN (00:42)
[2017-10-13] MEDS: Acetaminophen/Aspirin/Caffeine TABLET PO PRN ×2 (03:17→21:25)
[2017-10-13] MEDS: Nicotine 21 MG PATCH.TD24 TD SCH (08:35)
[2017-10-13] MEDS: Famotidine 20 MG TABLET PO SCH (08:35)
[2017-10-13] MEDS: Multivit/Ca/Min/Fe/FA 1 TAB TABLET PO SCH (08:36)
[2017-10-13] MEDS: Simethicone 80 MG TAB.CHEW PO SCH ×3 (08:36→17:01)
[2017-10-13] MEDS: Nitrofurantoin (BID) 100 MG CAPSULE PO SCH ×2 (08:36→21:26)
[2017-10-13] MEDS: Thiamine (B-1) 100 MG TABLET PO SCH (08:36)
[2017-10-13] MEDS: Metoprolol XL (24 HR) Succ 50 MG TAB.ER.24H PO SCH (08:37)
[2017-10-13] MEDS: (Cranberry Fruit Concentrate [Cranberry] 450 MG) PO SCH (11:35)
[2017-10-13] MEDS: (Prevagen 1 TAB) PO SCH (11:35)
--- NOTE | 2017-10-13 11:48 | Psychiatry Progress Note ---
Date of Encounter: 10/13/17 Time of Encounter: 11:45 Subjective Interval history: The patient has been agitated/ She has all features of DIGFAST. She is delusional and had to take zyprexa ativan and bendryl. She believes the staff is against her. She is clearer in cognition. She has been intrusive and uncooperative. 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 she complains of not getting anything done. She has reqeussted to leave, but we will try to have her stay voluntary or involuntary. Review of Systems Gastrointestinal: Reports: abdominal pain, diarrhea Psychiatric: Reports: depression, abnormal sleep pattern, change in appetite, memory loss, difficulty concentrating, irritability, mood swings Results - Vital Signs Vital Signs: Temp Pulse Resp BP 97.4 F L 84 18 139/86 10/13/17 09:11 10/13/17 09:11 10/13/17 09:11 10/12/17 21:00 - Impressions I spoke with Dr. Golden. He agrees with maryann and verito of manic syndrome. he reports that the patient is not a good candidate for shunt. 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 Current visit: No Status: Acute Plan: Continue hospitalization, Monitor sleep Risks, benefits, side effects, alternatives discussed w/pt: Yes Patient agreeable to treatment: Yes (2) Migraine Current visit: No Status: Chronic Plan: Group Therapy, Monitor sleep Risks, benefits, side effects, alternatives discussed w/pt: Yes Patient agreeable to treatment: Yes Qualifiers: Migraine type: unspecified Status migrainosus presence: without status migrainosus Intractability: not intractable Qualified Code(s): G43.909 - Migraine, unspecified, not intractable, without status migrainosus (3) Confusion Current visit: No Status: Acute Plan: Continue hospitalization, Encourage participation in unit milieu Risks, benefits, side effects, alternatives discussed w/pt: Yes Patient agreeable to treatment: Yes (4) Gait instability Current visit: No Status: Acute Plan: Close observation, Family/Supportive other meeting Risks, benefits, side effects, alternatives discussed w/pt: Yes Patient agreeable to treatment : Yes Consult Discharge Plan - Plan Referrals: Yodit Ellis MD [Partnered Physician] - 10/30/17 9:30 am (The above appointment is with Dr. Ellis for neurology follow-up.) Kj Paris MD [Non-Partnered Physician] - 10/18/17 10:15 am (The above appointment is with Dr. Paris for primary healthcare and medication management services.) Psychiatry Exam - Constitutional Vitals: Temp Pulse Resp BP 97.4 F L 84 18 139/86 10/13/17 09:11 10/13/17 09:11 10/13/17 09:11 10/12/17 21:00 General appearance: age & developmentally appropriate, inappropriate - Musculoskeletal Gait: unsteady Station: stooped Strength & Tone: mild weakness - Psychiatric Patient Orientation: Yes Person, Yes Time, Yes Place, Yes Circumstance Level of alertness: Alert Behavior: impulsive, dramatic Psychomotor activity: Agitated Eye Contact: Minimal Contact Mood Description: Labile, Irritable Affect description: congruent with mood Speech Volume: Loud, Excessive Variation Speech pattern: Inappropriate to situation, inappropriate to situation, repetetive Language & Vocabulary: consistent with education Thought Process: Thought Blocking, Perseveration Thought Content: Yes Preoccupation, Yes Paranoid delusion, Yes Somatic delusion Perceptual Disturbances: Yes Reacting to internal stimuli Attention Span Ability: Unable to Sustain Attention Memory Description: Immediate Intact, Recent Impaired, Remote Intact Patient Reliability: Not Reliable Historian Fund of knowledge: Yes abstraction ability Intelligence Estimate: Above [place] Judgment: Limited Insight: Minimal
[2017-10-13] MEDS: OLANZapine 5 MG TAB.RAPDIS PO PRN (11:52)
[2017-10-13] MEDS: *HR* LORazepam 1 MG TABLET PO PRN (11:52)
[2017-10-13] MEDS: rOPINIRole 1 MG TABLET PO SCH (21:23)
[2017-10-13] MEDS: OLANZapine 10 MG TAB.RAPDIS PO SCH (21:26)
[2017-10-14] MEDS: Ibuprofen 400 MG TABLET PO PRN ×2 (02:07→08:49)
[2017-10-14] MEDS: Simethicone 80 MG TAB.CHEW PO SCH ×3 (06:37→16:01)
[2017-10-14] MEDS: Acetaminophen/Aspirin/Caffeine TABLET PO PRN ×2 (06:43→16:00)
[2017-10-14] MEDS: Thiamine (B-1) 100 MG TABLET PO SCH (08:49)
[2017-10-14] MEDS: Multivit/Ca/Min/Fe/FA 1 TAB TABLET PO SCH (08:49)
[2017-10-14] MEDS: Metoprolol XL (24 HR) Succ 50 MG TAB.ER.24H PO SCH (08:50)
[2017-10-14] MEDS: Famotidine 20 MG TABLET PO SCH (08:51)
[2017-10-14] MEDS: Nitrofurantoin (BID) 100 MG CAPSULE PO SCH (08:51)
[2017-10-14] MEDS: (Prevagen 1 TAB) PO SCH (08:52)
[2017-10-14] MEDS: (Cranberry Fruit Concentrate [Cranberry] 450 MG) PO SCH (08:52)
[2017-10-14] MEDS: Nicotine 21 MG PATCH.TD24 TD SCH (08:52)
--- NOTE | 2017-10-14 15:32 | Psychiatry Progress Note ---
Date of Encounter: 10/14/17 Time of Encounter: 10:30 Subjective Interval history: Patient this morning during rounds by a multidisciplinary treatment. There were no reported behavioral issues overnight. She was calm, cooperative and well related and was able to sit through her interview. Patient reported having clear colored discharge from her nose and ears. Patient has a h/o Chiari Malformation and recent MRI of brains showed increase ventricular pressure. Patient is being followed by neurology with the option of shunt placement in discussion with patient. Patient admitted to flare of her crohns weeks before admission to the hospital. Patient also carries a diagnosis of dementia but is oriented to time, place and person. She has been compliant with her medications and denied any noted side effects. Patient denied prior psych contact. Patient is logical and able to engage is comprehensive conversation. She is responding to regimen. Her insight and impulse control are limited. She remains a risk to self and will benefit from additional stabilization.. Plan; D/c Zyprexa and optimize dose of Seroquel due to patient's age and h/o demetia. Review of Systems Psychiatric: Reports: abnormal sleep pattern, change in appetite, memory loss, difficulty concentrating, irritability, mood swings Results - Vital Signs Vital Signs: Temp Pulse Resp BP 98.4 F 100 20 132/82 10/14/17 09:00 10/14/17 09:00 10/14/17 09:00 10/14/17 09:00 Assessment and Plan (1) Mood disorder due to a general medical condition Current visit: Yes Status: Acute (2) Altered mental status Current visit: Yes Status: Acute Qualifiers: Altered mental status type: disorientation Qualified Code(s): R41.0 - Disorientation, unspecified (3) Neurocognitive disorder Current visit: Yes Status: Chronic Consult Discharge Plan - Plan Referrals: Yodit Ellis MD [Partnered Physician] - 10/30/17 9:30 am (The above appointment is with Dr. Ellis for neurology follow-up.) Kj Paris MD [Non-Partnered Physician] - 10/18/17 10:15 am (The above appointment is with Dr. Paris for primary healthcare and medication management services.) Psychiatry Exam - Constitutional Vitals: Temp Pulse Resp BP 98.4 F 100 20 132/82 10/14/17 09:00 10/14/17 09:00 10/14/17 09:00 10/14/17 09:00 General appearance: age & developmentally appropriate - Musculoskeletal Gait: unsteady - Psychiatric Patient Orientation: Yes Person, Yes Time, Yes Place, Yes Circumstance Level of alertness: Alert Psychomotor activity: Normal Eye Contact: Maintains Eye Contact Mood Description: Euthymic/stable Affect description: congruent with mood Speech Volume: Normal Speech pattern: normal rate, pressured Language & Vocabulary: consistent with education Thought Process: Logical, Goal Oriented Thought Content: Yes Intact Memory Description: Immediate Impaired Patient Reliability: Reliable Historian Intelligence Estimate: Average Judgment: Limited Insight: Partial
[2017-10-15] MEDS: Nitrofurantoin (BID) 100 MG CAPSULE PO SCH ×3 (00:08→21:32)
[2017-10-15] MEDS: rOPINIRole 1 MG TABLET PO SCH ×2 (00:08→21:27)
[2017-10-15] MEDS: Acetaminophen/Aspirin/Caffeine TABLET PO PRN ×3 (05:05→17:52)
[2017-10-15] MEDS: Nicotine 21 MG PATCH.TD24 TD SCH (10:37)
[2017-10-15] MEDS: Famotidine 20 MG TABLET PO SCH (10:38)
[2017-10-15] MEDS: Simethicone 80 MG TAB.CHEW PO SCH ×3 (10:38→14:42)
[2017-10-15] MEDS: Thiamine (B-1) 100 MG TABLET PO SCH (10:38)
[2017-10-15] MEDS: (Prevagen 1 TAB) PO SCH (10:39)
[2017-10-15] MEDS: Multivit/Ca/Min/Fe/FA 1 TAB TABLET PO SCH (10:40)
[2017-10-15] MEDS: Metoprolol XL (24 HR) Succ 50 MG TAB.ER.24H PO SCH (10:40)
[2017-10-15] MEDS: (Cranberry Fruit Concentrate [Cranberry] 450 MG) PO SCH (10:40)
--- NOTE | 2017-10-15 10:52 | Psychiatry Progress Note ---
Date of Encounter: 10/15/17 Time of Encounter: 10:30 Subjective Interval history: Patient seen and discussed on rounds by a multidisciplinary treatment team. There were no reported behavioral issues or incident overnight. Patient reported to have slept through the night. Neurology reconsulted due to persistent drainage of clear liquid from the nose and both ears. Patient also continue to endorse headaches. Patient is compliant with her medication and denied any noted side effects. She denied any mood or psychotic symptoms and is logical and goal directed. She is close to base line and shouls be ready for discharged after she cleared by neurology and son available to take her home. We will continue with current management at this time whiles waiting for recommendations from Neurology. Review of Systems Constitutional: Denies: fever, chills, weakness, weight change Eyes: Denies: eye pain, vision change Ears, Nose, Throat: Reports: other. Denies: ear pain, throat pain, dental pain , hearing loss, congestion Cardiovascular: Denies: chest pain, palpitations, dyspnea on exertion Respiratory: Denies: cough, dyspnea, wheezes Gastrointestinal: Denies: abdominal pain, nausea, vomiting, diarrhea, constipation Musculoskeletal: Denies: joint swelling, joint pain Neurological: Reports: headache. Denies: weakness, numbness, memory loss Psychiatric: Reports: memory loss, other Results - Vital Signs Vital Signs: Temp Pulse Resp BP 98.2 F 85 18 133/74 10/14/17 21:00 10/14/17 21:00 10/14/17 21:00 10/14/17 21:00 Assessment and Plan (1) Mood disorder due to a general medical condition Current visit: Yes Status: Acute (2) Altered mental status Current visit: Yes Status: Acute Qualifiers: Altered mental status type: disorientation Qualified Code(s): R41.0 - Disorientation, unspecified (3) Neurocognitive disorder Current visit: Yes Status: Chronic Consult Discharge Plan - Plan Referrals: Yodit Ellis MD [Partnered Physician] - 10/30/17 9:30 am (The above appointment is with Dr. Ellis for neurology follow-up.) Kj Paris MD [Non-Partnered Physician] - 10/18/17 10:15 am (The above appointment is with Dr. Paris for primary healthcare and medication management services.) Psychiatry Exam - Constitutional Vitals: Temp Pulse Resp BP 98.2 F 85 18 133/74 10/14/17 21:00 10/14/17 21:00 10/14/17 21:00 10/14/17 21:00 General appearance: age & developmentally appropriate - Musculoskeletal Gait: slow, unsteady - Psychiatric Patient Orientation: Yes Person, Yes Time, Yes Place Level of alertness: Alert Behavior: calm, cooperative Psychomotor activity: Normal Eye Contact: Maintains Eye Contact Mood Description: Euthymic/stable Affect description: congruent with mood Speech Volume: Normal Speech pattern: normal rate Language & Vocabulary: consistent with education Thought Process: Logical, Goal Oriented Thought Content: No Suicidal ideation, No Homicidal ideation, No Overt delusions Perceptual Disturbances: No Auditory hallucinations, No Visual hallucinations Attention Span Ability: Capable of Focused Attention Memory Description: Remote Impaired Patient Reliability: Reliable Historian Fund of knowledge: Yes average Intelligence Estimate: Average Judgment: Fair Insight: Partial
[2017-10-15] MEDS: Ibuprofen 400 MG TABLET PO PRN (14:42)
--- NOTE | 2017-10-15 15:37 | Neurology - Consult Note ---
Date of Encounter: 10/15/17 Time of Encounter: 15:32 Assessment and Plan (1) Rhinorrhea Current Visit: Yes Status: Acute This patient will definitely seems to have underlying behavioral issues but at the same time also having this rhinorrhea along with the daily headaches with a concern that it could be CSF rhinorrhea. In patients presenting with clear fluid nasal discharge it is important to identify the nature of the rhinorrhea. The CSF leakage may occur as post-traumatic, iatrogenic, spontaneous or idiopathic rhinorrhea. The differential diagnosis of CSF rhinorrhea often presents a challenging problem. The confirmation of CSF rhinorrhea and localization of the leakage may be diagnosed by CT, MRI cisternography and MRI cisternography in combination with single photon emission tomography or radioisotopic imaging. though in this patient I really doubt that she be able to cooperate during any of these tests biochemical methods are still used in the differentiation. Although the most common diagnostic method for screening CSF leakage is glucose oxidase, its diagnostic sensitivity and specificity is generally unsatisfactory. False negative results may occur non-invasive biochemical methods for detection of cerebrospinal fluid leakage using combined determination of glucose, [id number] and beta-2- transferrin in secretion and serum can be done but not sure that we be able to do it here, certainly will order those If not then one possibility is to transfer her to a tertiary care center-like [facility] or [facility] for further workup and management (2) New persistent daily headache Current Visit: Yes Status: Acute (3) Dilated ventricle Current Visit: No Status: Acute As mentioned previously at my initial assessment that patient did have a dilated ventricles and raises the concern off NPH but the his inpatient is not quite typical she did not have a lot of parkinsonian features at the same time she also did not have any typical magnetic gait. Though NPH remains in the differential but now with the concern of CSF rhinorrhea certainly she would require new imaging studies. Perhaps we can do MRI cisternogram to look at the CSF flow at the same time. 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 Bowles is a 67 year old female known to me from previous hospitalization as well as from office visit with history of mental status changes, dilated ventricles on imaging studies and cognitive decline for short period of time. To the neurology service being consulted as she had clear fluid coming out of her nose and is also question that it may be coming out of her ears, as it may be a CSF leak patient is also complaining of headache for quite some time. As per records patient has significant decline. After a fall in her home she was brought in and found to have mental status changes. she was admitted earlier [place] with psychosis, she was very impulsive perseverative disinhibited with poor memory and concentration and disorganization, The patient had an elevated irritable mood she was expansive and overly gregarious. She made some inappropriate or silly comments. Her associations were loose and sometimes tangential. patient has some gait disturbance, previously noted to have enlargement of the ventricles. but not all typical symptoms of NPH. she also has mild Arnold CHAIRI syndrome type I. Past Med Surg Social Fam HX - Past Medical History Medical history: coronary artery disease, hypertension, myocardial infarction, other Psychiatric history: no psych history - Past Surgical History Surgical History: non-contributory - Social History Smoking Status: Current every day smoker Smokeless Tobacco Status: No Alcohol use: none Drug use: none - Family History Mother Adopted: [place]: A[place] Family Member Ethnicity: Non- Living Status: Age at : 51 Cause of : cancer Hx Family Cardiac Disorders: No Hx Family Respiratory Disorders: No Hx Family Cancer: Yes Hx Family GI Disorders: ("not sure") Hx Family Genitourinary Disorders: No Hx Family Endocrine Disorder: No Hx Family Musculoskeletal Disorders: No Hx Family Neuromuscular Disorders: No Hx Family Neurologic Disorders: No Hx Family HEENT Disorders: No Hx Family Autoimmune Disorders: No Hx Family Reproductive Disorders: No ("no, had 12 children") Hx Family Psychosocial Disorders: No Hx Family Medical Disorders: No Medications and Allergies Citalopram [CeleXA] 20 mg PO DAILY 01/27/17 [History] Lisinopril [Zestril] 5 mg PO DAILY 01/27/17 [History] Ranitidine HCl [Zantac] 300 mg PO DAILY 01/27/17 [History] Topiramate [Topamax] 25 mg PO DAILY 01/27/17 [History] rOPINIRole [Requip] 2 mg PO HS 01/27/17 [History] Thiamine (B-1) [Vitamin B-1] 100 mg PO DAILY #30 tablet 01/04/18 [Rx] Aspirin/Acetaminophen/Caffeine [Excedrin Migraine Caplet] 2 each PO Q6H PRN [History] Cranberry Fruit Concentrate [Cranberry] 450 mg PO DAILY 10/09/17 [History] Loperamide HCl [Anti-Diarrheal] 2 mg PO PER PKG DI PRN 10/09/17 [History] Meloxicam 15 mg PO DAILY 10/09/17 [History] Metoprolol Succinate 50 mg PO DAILY 10/09/17 [History] Multivitamin [One Daily Multivitamin] 1 each PO DAILY 10/09/17 [History] Potassium Chloride 10 meq PO TID 10/09/17 [History] Prevagen 1 tab PO DAILY 10/09/17 [History] Simethicone [Gas-X] 80 mg PO TIDAC 10/09/17 [History] Nicotine Patch [Nicoderm] 21 mg TD DAILY patch.td24 10/10/17 [Rx] Nitrofurantoin Monohyd/M-Cryst [Macrobid 100 mg Capsule] 100 mg PO BID #5 capsule 10/10/17 [Rx] 3 Allergy/AdvReac Type Severity Reaction Status Date / Time Penicillins [PCN] Allergy See Verified 10/09/17 15:55 Comments morphine AdvReac Itching Verified 01/27/17 21:40 All Systems: The remainder of the systems were reviewed and are negative Physical Examination - Vital Signs Vital Signs: Initial Vital Signs Temp Pulse Resp BP 98.6 F 68 16 145/87 10/10/17 21:00 10/10/17 21:00 10/10/17 21:00 10/10/17 21:00 - Constitutional General appearance: comfortable, other (Walking around in the hallways not very pleasant denies to recognize me, alert and oriented to person and place, did commend that I did not come to see her on Monday because I would be paid or time hour and a half.) - Neurologic Sensorimotor examination: intact Motor examination - right side: 4/5: deltoids, biceps, triceps, wrist flexion, wrist extension, advanced practice provider, hip flexors, tibialis Anterior, quadriceps, toe extension (EHL), plantarflexion Motor examination - left side: 4/5: deltoids, biceps, triceps, wrist flexion, wrist extension, hip flexors, advanced practice provider, quadriceps, tibialis Anterior, toe extension (EHL), plantarflexion Detailed sensory examination: intact Mental Status Examination: awake, alert, oriented to person, oriented to place, follows commands appropriately Cranial nerve examination: PERRL, EOMI, visual pappas intact, no facial asymmetry is present (The patient has some difficulty while she is turning but able to walk with slight decrease in arm swing but no typical shuffling gait neither has any magnetic gait. She is able to get up and walk without any hesitancy.) Results - Diagnostic Findings Additional findings: Recent MRI scan dated August 10 showed Ventriculomegaly which is out of proportion to the degree of brain parenchymal volume loss. This raises the possibility for normal pressure Periventricular and subcortical white matter signal abnormality compatible with mild chronic microvascular ischemic changes. 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 Consult Discharge Plan - Plan Referrals: Yodit Ellis MD [Partnered Physician] - 10/30/17 9:30 am (The above appointment is with Dr. Ellis for neurology follow-up.) Kj Paris MD [Non-Partnered Physician] - 10/18/17 10:15 am (The above appointment is with Dr. Paris for primary healthcare and medication management services.)
[2017-10-15] MEDS: *HR* LORazepam 1 MG TABLET PO PRN (18:24)
[2017-10-16] MEDS: Multivit/Ca/Min/Fe/FA 1 TAB TABLET PO SCH (09:28)
[2017-10-16] MEDS: Thiamine (B-1) 100 MG TABLET PO SCH (09:28)
[2017-10-16] MEDS: Simethicone 80 MG TAB.CHEW PO SCH ×3 (09:29→14:58)
[2017-10-16] MEDS: Nitrofurantoin (BID) 100 MG CAPSULE PO SCH ×2 (09:30→21:07)
[2017-10-16] MEDS: (Cranberry Fruit Concentrate [Cranberry] 450 MG) PO SCH (09:31)
[2017-10-16] MEDS: Nicotine 21 MG PATCH.TD24 TD SCH (09:31)
[2017-10-16] MEDS: (Prevagen 1 TAB) PO SCH (09:31)
[2017-10-16] MEDS: Famotidine 20 MG TABLET PO SCH (09:32)
[2017-10-16] MEDS: Metoprolol XL (24 HR) Succ 50 MG TAB.ER.24H PO SCH (09:33)
[2017-10-16] MEDS: hydrOXYzine pamoate 25 MG CAPSULE PO PRN (09:48)
--- NOTE | 2017-10-16 10:34 | Psychiatry Progress Note ---
Date of Encounter: 10/16/17 Time of Encounter: 10:00 Subjective Interval history: Ms. Bowles was seen today , chart reviewed , case d/w treatment team. She was admitted to psychiatric floor FROM MEDICAL FLOOR after her fall from tripping over her tiles and called ambulance herself, she had AMS . She has had Neuro consult yesterday for RHINORRHEA she was recommened to have MRI contrast . At present she is pleasant , talkative, oriented x2 and denies any psychosis , has some cognitive impairement as needs to be redirected , no bizzare behaviours or roxann at present , feels depress as want to go home and has some anxiety , denies si/hi. states i am pretty independant women. she will have contrast MRI today and once cleared by neurology will discharge patient. she has support from her family. patient agreed with plan and agreed to have MRI. Review of Systems Psychiatric: Reports: memory loss, other Results - Vital Signs Vital Signs: Temp Pulse Resp BP 98.7 F 109 18 148/85 10/15/17 20:09 10/15/17 20:09 10/15/17 20:09 10/15/17 20:09 Assessment and Plan (1) Altered mental status Current visit: Yes Status: Resolved Plan: Continue hospitalization, Close observation, Group Therapy, Monitor sleep , Monitor appetite, Family/Supportive other meeting Risks, benefits, side effects, alternatives discussed w/pt: Yes Patient agreeable to treatment: Yes Qualifiers: Altered mental status type: disorientation Qualified Code(s): R41.0 - Disorientation, unspecified (2) Generalized anxiety disorder Current visit: No Status: Chronic Plan: Continue hospitalization, Close observation, Suicide Precautions per unit protocol, Encourage participation in unit milieu, Group Therapy, Monitor sleep, Monitor appetite, Family/Supportive other meeting Risks, benefits, side effects, alternatives discussed w/pt: Yes Patient agreeable to treatment: Yes (3) 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 Risks, benefits, side effects, alternatives discussed w/pt: Yes Patient agreeable to treatment: Yes (4) Dilated ventricle Current visit: No Status: Chronic Plan: Continue hospitalization, Close observation Risks, benefits, side effects, alternatives discussed w/pt: Yes Patient agreeable to treatment: Yes (5) Neurocognitive disorder Current visit: Yes Status: Chronic Plan: Continue hospitalization, Close observation, Group Therapy, Family/ Supportive other meeting Risks, benefits, side effects, alternatives discussed w/pt: Yes Patient agreeable to treatment: Yes (6) Rhinorrhea Current visit: Yes Status: Acute Plan: Continue hospitalization, Close observation Additional Plan: patient will have MRI contrast today. Risks, benefits, side effects, alternatives discussed w/pt: Yes Patient agreeable to treatment: Yes (7) New persistent daily headache Current visit: Yes Status: Acute Plan: Continue hospitalization, Close observation, Group Therapy, Monitor sleep Risks, benefits, side effects, alternatives discussed w/pt: Yes Patient agreeable to treatment: Yes (8) Crohn's disease Current visit: No Status: Chronic Plan: Continue hospitalization, Close observation Risks, benefits, side effects, alternatives discussed w/pt: Yes Patient agreeable to treatment: Yes Qualifiers: Gastrointestinal tract location: unspecified location Digestive disease complication type: without complication Qualified Code(s): K50.90 - Crohn's disease, unspecified, without complications Consult Discharge Plan - Plan Referrals: Yodit Ellis MD [Partnered Physician] - 10/30/17 9:30 am (The above appointment is with Dr. Ellis for neurology follow-up.) Kj Paris MD [Non-Partnered Physician] - 10/18/17 10:15 am (The above appointment is with Dr. Paris for primary healthcare and medication management services.) Psychiatry Exam - Constitutional Vitals: Temp Pulse Resp BP 98.7 F 109 18 148/85 10/15/17 20:09 10/15/17 20:09 10/15/17 20:09 10/15/17 20:09 General appearance: average - Musculoskeletal Gait: slow Station: other Strength & Tone: normal for patient - Psychiatric Patient Orientation: Yes Person, Yes Place Level of alertness: Alert Behavior: cooperative, anxious Psychomotor activity: Normal Eye Contact: Maintains Eye Contact Mood Description: Anxious Affect description: congruent with mood Speech Volume: Normal Speech pattern: normal rate, normal rhythm, normal tone, coherent Language & Vocabulary: consistent with education Thought Process: Intact, Logical Thought Content: Yes Intact Attention Span Ability: Unable to Sustain Attention Memory Description: Recent Impaired Patient Reliability: Reliable Historian Fund of knowledge: Yes average Intelligence Estimate: Average Judgment: Limited Insight: Partial
[2017-10-16 13:20] LABS: BUN/Creatinine Ratio 16 (6-26); Blood Urea Nitrogen 15 mg/dL (8-23); Calcium 8.9 mg/dL (8.6-10.3); Carbon Dioxide 28 mEq/L (23-29); Chloride 110 mEq/L (98-107); Glucose 116 mg/dL (70-105); Osmolality,Calculated 292 (280-300); Potassium 5.2 mEq/L (3.5-5.1); Sodium 140 mEq/L (136-145); eGFR For African Americans > 60 (> 60); eGFR For Non-African Americans 58 (> 60)
--- NOTE | 2017-10-16 15:06 | Neurology Progress Note ---
Date of Encounter: 10/16/17 Time of Encounter: 07:35 Assessment and Plan (1) Rhinorrhea Current Visit: Yes Status: Acute Concern off CSF leak labs were ordered but not has been drawn yet suggested to check for glucose for CSF in the nasal fluids. At the same time we will get an MRI of the brain perhaps can do a cisternogram, especially it is a concern that she may have an NPH though clinically she does not have all typical features of NPH she did have a dilated ventricles on previous imaging studies. As far as CSF rhinorrhea is concern I did not see any fluid coming out of the nose or from the year but patient complained that sooner later it will start coming out at the same time headache with also start later during the daytime. 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 She is alert and awake not having breakfast I did not see any leak from the nose neither from the ears. Patient denies any headaches now but says that it will come on so. She is scheduled for an MRI today Objective - Constitutional Vitals: Temp Pulse Resp BP 98.4 F 90 14 151/81 10/16/17 09:00 10/16/17 09:00 10/16/17 09:00 10/16/17 09:00 - Neurological Exam Sensorimotor examination: Present: intact Motor examination - left side: 4/5: deltoids, biceps, triceps, wrist flexion, wrist extension, hip flexors, gambling box person, quadriceps, tibialis Anterior, toe extension (EHL), plantarflexion Sensation intact: Present: intact Mental Status Examination: Present: awake, alert, oriented to person, oriented to place, follows commands appropriately Cranial nerve examination: Present: PERRL, EOMI, visual pappas intact, no facial asymmetry is present (The patient has some difficulty while she is turning but able to walk with slight decrease in arm swing but no typical shuffling gait neither has any magnetic gait. She is able to get up and walk without any hesitancy.) - VTE Reasons for not Prescribing Prophylaxis: Treatment not Indicated - Low risk for VTE Results - Laboratory Findings CBC and BMP: 10/16/17 12:47 Abnormal lab findings: Abnormal lab results Potassium 5.2 mEq/L (3.5-5.1) H 10/16/17 12:47 Chloride 110 mEq/L (98-107) H 10/16/17 12:47 Est GFR (Non-Af Amer) 58 (> 60) L 10/16/17 12:47 Glucose 116 mg/dL (70-105) H 10/16/17 12:47 Consult Discharge Plan - Plan Referrals: Yodit Ellis MD [Partnered Physician] - 10/30/17 9:30 am (The above appointment is with Dr. Ellis for neurology follow-up.) Kj Paris MD [Non-Partnered Physician] - 10/18/17 10:15 am (The above appointment is with Dr. Paris for primary healthcare and medication management services.)
[2017-10-16] MEDS ORDERED: *HR* LORazepam 1 MG TABLET PO ONE (18:50)
[2017-10-16] MEDS: Acetaminophen/Aspirin/Caffeine TABLET PO PRN (21:07)
[2017-10-16] MEDS: rOPINIRole 1 MG TABLET PO SCH (21:42)
[2017-10-17] MEDS: Simethicone 80 MG TAB.CHEW PO SCH ×3 (08:58→17:47)
[2017-10-17] MEDS: Metoprolol XL (24 HR) Succ 50 MG TAB.ER.24H PO SCH (08:58)
[2017-10-17] MEDS: Thiamine (B-1) 100 MG TABLET PO SCH (08:58)
[2017-10-17] MEDS: Nitrofurantoin (BID) 100 MG CAPSULE PO SCH ×2 (08:58→20:15)
[2017-10-17] MEDS: Multivit/Ca/Min/Fe/FA 1 TAB TABLET PO SCH (08:58)
[2017-10-17] MEDS: Famotidine 20 MG TABLET PO SCH (09:01)
[2017-10-17] MEDS: (Cranberry Fruit Concentrate [Cranberry] 450 MG) PO SCH (09:03)
[2017-10-17] MEDS: Nicotine 21 MG PATCH.TD24 TD SCH (09:03)
[2017-10-17] MEDS: (Prevagen 1 TAB) PO SCH (09:03)
--- NOTE | 2017-10-17 14:01 | Psychiatry Progress Note ---
Date of Encounter: 10/17/17 Time of Encounter: 13:50 Subjective Interval history: Patient seen today , case d/w treatment team , she is irritable as wants to go home, she feels i am not doing shunt , i donot remember i had MRI , i have memory problem , she states i mow my 2 acre lawn , i was changing my floor by myself and had accident and ended up in here. she is compliant with medication and denies side effects. i will puke so you can send me out . Result of MRI still not back, waiting for results. DR Ellis neurologist contacted and informed MRI did not show any bleed , awaiting CSF labs not done . start discharge planning for tomorrow and get f/u appointment with neurologist and psychiatrist. Review of Systems Psychiatric: Reports: memory loss, other Results - Vital Signs Vital Signs: Temp Pulse Resp BP 98.6 F 76 16 139/76 10/17/17 09:00 10/17/17 09:00 10/17/17 09:00 10/17/17 09:00 - Impressions ITS Impressions Head MRI 10/15/17 15:49 IMPRESSION: Stable ventriculomegaly. Consider normal pressure hydrocephalus. Tonsillar ectopia consistent with Chiari 1 malformation unchanged. No acute disease. 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 Current visit: No Status: Acute Risks, benefits, side effects, alternatives discussed w/pt: Yes Patient agreeable to treatment: Yes (4) Dilated ventricle Current visit: No Status: Chronic Risks, benefits, side effects, alternatives discussed w/pt: Yes Patient agreeable to treatment: Yes (5) Neurocognitive disorder Current visit: Yes Status: Chronic Risks, benefits, side effects, alternatives discussed w/pt: Yes Patient agreeable to treatment: Yes (6) Rhinorrhea Current visit: Yes Status: Acute Risks, benefits, side effects, alternatives discussed w/pt: Yes Patient agreeable to treatment: Yes (7) New persistent daily headache Current visit: Yes Status: Acute Risks, benefits, side effects, alternatives discussed w/pt: Yes Patient agreeable to treatment: Yes (8) Crohn's disease Current visit: No Status: Chronic Risks, benefits, side effects, alternatives discussed w/pt: Yes Patient agreeable to treatment: Yes Qualifiers: Gastrointestinal tract location: unspecified location Digestive disease complication type: without complication Qualified Code(s): K50.90 - Crohn's disease, unspecified, without complications Consult Discharge Plan - Plan Referrals: Yodit Ellis MD [Partnered Physician] - 10/30/17 9:30 am (The above appointment is with Dr. Ellis for neurology follow-up.) Kj Paris MD [Non-Partnered Physician] - 10/18/17 10:15 am (The above appointment is with Dr. Paris for primary healthcare and medication management services.) Psychiatry Exam - Constitutional Vitals: Temp Pulse Resp BP 98.6 F 76 16 139/76 10/17/17 09:00 10/17/17 09:00 10/17/17 09:00 10/17/17 09:00 General appearance: age & developmentally appropriate, average - Musculoskeletal Gait: normal Station: other Strength & Tone: normal for patient - Psychiatric Patient Orientation: Yes Person, Yes Place Level of alertness: Alert Behavior: hostile Psychomotor activity: Normal Eye Contact: Minimal Contact Mood Description: Angry, Irritable Affect description: congruent with mood Speech Volume: Loud Speech pattern: coherent Language & Vocabulary: consistent with education Thought Process: Intact Thought Content: Yes Preoccupation Attention Span Ability: Unable to Sustain Attention Memory Description: Recent Impaired Patient Reliability: Questionable Historian Fund of knowledge: Yes average Intelligence Estimate: Average Judgment: Fair Insight: Minimal
--- NOTE | 2017-10-17 16:34 | Neurology Progress Note ---
Date of Encounter: 10/17/17 Time of Encounter: 07:40 Assessment and Plan (1) Rhinorrhea Current Visit: Yes Status: Acute MRI of the brain did not show any new acute abnormality. Discussed with radiology about the findings seemed like she did have a dilated ventricle is was present before she also has a maxillary air-fluid level , which was not previously seen. 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 She is alert and awake not much headaches, I did not see any leak from the nose neither from the ears. Patient denies any headaches now but says that it will come on so. She continued to have these headaches often on MRI of the brain did not show any new acute abnormality. Continued to have dilated ventricles and Chiari malformation. Lab was not done in particularly to look for glucose in the nasal secretion Objective - Constitutional Vitals: Temp Pulse Resp BP 98.6 F 76 16 139/76 10/17/17 09:00 10/17/17 09:00 10/17/17 09:00 10/17/17 09:00 - Neurological Exam Sensorimotor examination: Present: intact Motor examination - left side: 4/5: deltoids, biceps, triceps, wrist flexion, wrist extension, hip flexors, chemical compounder helper, quadriceps, tibialis Anterior, toe extension (EHL), plantarflexion Sensation intact: Present: intact Mental Status Examination: Present: awake, alert, oriented to person, oriented to place, follows commands appropriately Cranial nerve examination: Present: PERRL, EOMI, visual pappas intact, no facial asymmetry is present (The patient has some difficulty while she is turning but able to walk with slight decrease in arm swing but no typical shuffling gait neither has any magnetic gait. She is able to get up and walk without any hesitancy.) - VTE Reasons for not Prescribing Prophylaxis: Treatment not Indicated - Low risk for VTE Results - Laboratory Findings CBC and BMP: 10/16/17 12:47 Abnormal lab findings: Abnormal lab results Potassium 5.2 mEq/L (3.5-5.1) H 10/16/17 12:47 Chloride 110 mEq/L (98-107) H 10/16/17 12:47 Est GFR (Non-Af Amer) 58 (> 60) L 10/16/17 12:47 Glucose 116 mg/dL (70-105) H 10/16/17 12:47 Consult Discharge Plan - Plan Referrals: Yodit Ellis MD [Partnered Physician] - 10/19/17 10:45 am (The above appointment is with Dr. Ellis for neurology follow-up.) Kj Paris MD [Non-Partnered Physician] - 10/25/17 2:30 pm (The above appointment is with Dr. Paris for primary healthcare and medication management services.)
[2017-10-17] MEDS: Acetaminophen/Aspirin/Caffeine TABLET PO PRN (17:48)
[2017-10-17] MEDS: rOPINIRole 1 MG TABLET PO SCH (20:15)
[2017-10-18] MEDS: Acetaminophen/Aspirin/Caffeine TABLET PO PRN (07:21)
[2017-10-18] MEDS: Simethicone 80 MG TAB.CHEW PO SCH (07:22)
[2017-10-18] MEDS: Famotidine 20 MG TABLET PO SCH (09:06)
[2017-10-18] MEDS: Multivit/Ca/Min/Fe/FA 1 TAB TABLET PO SCH (09:07)
[2017-10-18] MEDS: Thiamine (B-1) 100 MG TABLET PO SCH (09:07)
[2017-10-18] MEDS: Nitrofurantoin (BID) 100 MG CAPSULE PO SCH (09:07)
[2017-10-18] MEDS: Metoprolol XL (24 HR) Succ 50 MG TAB.ER.24H PO SCH (09:07)
[2017-10-18 09:08] VITALS: BP 139/76
[2017-10-18] MEDS: Nicotine 21 MG PATCH.TD24 TD SCH (09:09)
[2017-10-18] MEDS: (Prevagen 1 TAB) PO SCH (09:15)
[2017-10-18] MEDS: (Cranberry Fruit Concentrate [Cranberry] 450 MG) PO SCH (09:15)
--- NOTE | 2017-10-18 09:30 | Discharge Summary ---
Date of Encounter: 10/18/17 Time of Encounter: 09:15 Diagnosis - Discharge Diagnosis (1) Altered mental status Status: Resolved Comments: patient at present her baseline and not disoriented , she is aware of her surroundings and her illness ,she is cleared by neurology and will follow up with Dr Ellis Qualifiers: Altered mental status type: disorientation Qualified Code(s): R41.0 - Disorientation, unspecified (2) Generalized anxiety disorder Status: Chronic Comments: patient at present stable. 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 (6) Rhinorrhea Status: Resolved Comments: no rhinorrhea at present. (7) New persistent daily headache Status: Acute (8) Crohn's disease Status: Chronic Qualifiers: Gastrointestinal tract location: unspecified location Digestive disease complication type: without complication Qualified Code(s): K50.90 - Crohn's disease, unspecified, without complications Medications - Discharge Medications Prescriptions: Nicotine Patch [Nicoderm] 21 mg TD DAILY #7 patch.td24 Nicotine Patch [Nicoderm] 21 mg TD DAILY #7 patch.td24 Quetiapine Fumarate [Seroquel] 50 mg PO HS #7 tablet Lisinopril [Zestril] 5 mg PO DAILY 01/27/17 [History] Ranitidine HCl [Zantac] 300 mg PO DAILY 01/27/17 [History] Topiramate [Topamax] 25 mg PO DAILY 01/27/17 [History] rOPINIRole [Requip] 2 mg PO HS 01/27/17 [History] Thiamine (B-1) [Vitamin B-1] 100 mg PO DAILY #30 tablet 07/27/17 [Rx] Aspirin/Acetaminophen/Caffeine [Excedrin Migraine Caplet] 2 each PO Q6H PRN [History] Cranberry Fruit Concentrate [Cranberry] 450 mg PO DAILY 10/09/17 [History] Loperamide HCl [Anti-Diarrheal] 2 mg PO PER PKG DI PRN 10/09/17 [History] Meloxicam 15 mg PO DAILY 10/09/17 [History] Metoprolol Succinate 50 mg PO DAILY 10/09/17 [History] Multivitamin [One Daily Multivitamin] 1 each PO DAILY 10/09/17 [History] Potassium Chloride 10 meq PO TID 10/09/17 [History] Prevagen 1 tab PO DAILY 10/09/17 [History] Simethicone [Gas-X] 80 mg PO TIDAC 10/09/17 [History] Nitrofurantoin Monohyd/M-Cryst [Macrobid 100 mg Capsule] 100 mg PO BID #5 capsule 10/10/17 [Rx] Nicotine Patch [Nicoderm] 21 mg TD DAILY #7 patch.td24 10/18/17 [Rx] Nicotine Patch [Nicoderm] 21 mg TD DAILY #7 patch.td24 10/18/17 [Rx] Quetiapine Fumarate [Seroquel] 50 mg PO HS #7 tablet 10/18/17 [Rx] 3 Allergy/AdvReac Type Severity Reaction Status Date / Time Penicillins [PCN] Allergy See Verified 10/09/17 15:55 Comments morphine AdvReac Itching Verified 01/27/17 21:40 Results Procedures and tests throughout hospitalization: Completed Lab Orders Category Date Time Status Chem 7 [Basic Metabolic Panel] Stat Lab 10/16/17 12:47 Completed ESR [Erythrocyte Sedimentation Rate] [HEME] AM 0400 Lab 10/12/17 07:49 Completed TSH [Thyroid Stimulating Hormone] AM 0400 Lab 10/12/17 07:49 Completed Vitamin B12 AM 0400 Lab 10/12/17 07:49 Completed Completed Imaging Orders Category Date Time Status MR head wo/w con [MR] Routine MRI 10/15/17 15:49 Completed Provider Date of admission: 10/10/17 17:17 Primary care physician: PCP NONE Consults: 10/15/17 10:09 Consult to Neurology [CONS] Stat Consulting Provider: [facility] Reason for Consult: Pt with hydrocephalus. Leaking from ears and nose. Pt treated around the clock from headache. Time Notified: 10:10 Call Completed: Yes Psychiatry Exam - Constitutional Vitals: Temp Pulse Resp BP 98.2 F 87 16 139/76 10/18/17 09:00 10/18/17 09:00 10/18/17 09:00 10/18/17 09:00 General appearance: age & developmentally appropriate - Musculoskeletal Gait: normal Strength & Tone: normal for patient - Psychiatric Patient Orientation: Yes Person, Yes Time, Yes Place Level of alertness: Alert Behavior: calm, cooperative Psychomotor activity: Normal Eye Contact: Maintains Eye Contact Mood Description: Euthymic/stable Affect description: constricted Speech Volume: Normal Speech pattern: normal rate, normal rhythm, normal tone, coherent Language & Vocabulary: consistent with education Thought Process: Intact Thought Content: Yes Intact Attention Span Ability: Capable of Focused Attention Memory Description: Grossly Intact Patient Reliability: Reliable Historian Fund of knowledge: Yes average Intelligence Estimate: Average Judgment: Good Insight: Partial Hospital Course Hospital course: Ms. Bowles is a 67 year old female admitted from ED According to notes from admitting psychiatrist This patient presented with a history of significant decline. After a fall in her home she was brought in and found to have mental status changes. She was impulsive , perseverative , disinhibited with poor memory and concentration. The patient had increasing disorganization and was not knowledgeable about date and day. The patient had an elevated irritable mood she was expansive and overly gregarious. She made some inappropriate or silly comments. Her associations were loose and sometimes tangential. The patient is overall bright tropic. There is no fluctuation in level of consciousness. She misidentified a few things but did not have alo hallucinations she did not have delusions of grandiosity. This appears to be a new onset manic episode. It was possible that this was a switch induced by the medicine citalopram a previous diagnosis of generalized anxiety disorder was given the patient was previously on Xanax. But the patient has a gait disturbance and an MRI found enlargement of the ventricles. Nonetheless it was felt that she did not need shunting. The patient reports that 3 years ago she had a stomach surgery and has had some difficulty eating. Prior to that she had Crohn's. She also reports headaches she reports I disturbance. During her hospital stay , she has been compliant with medications but not as much with unit milieu and remained angry why she is in psychiatric unit, she was redirectable, her memory is fluctuating today her immediate and recent is intact, she is smiling and happy to be discharged. she denies depression , psychosis and no manic s/s. She had neurological consult done and repeat MRI done , also had conversation with Dr Ellis who states she does not have any new findings in MRI and no bleed , , she does not have any rhinnorhea since 2 days now and she keeps tissue in her ears to block the sound as she is senstive to loud sounds and her headaches get worse, as per her her headaches are relieved also. Appreciate Dr Elils input , he came and saw her and she remembers his conversation. she at present not hyper and manic , which could be secondary to her fall/ adding citalopram . medication citalopram was discontinued and Seroquel 50 mg hs given , She does not want to follow psych. as per her she is not depressed and not crazy , she is like this for ever , i just fell and now i am fine. Time spent discussing smoking cessation with patient: 3 to 10 minutes Does patient wish to continue nicotine replacement upon disc: Yes (she agreed to continue nicotine patches .) - Time Spent with Patient Total time spent providing and/or coordinating discharge services: Greater than 30 minutes Assessment and Plan - Patient/Caregiver Discharge Instructions Activity: resume usual activities as tolerated Diet: regular diet - Follow up Plan Follow up with: Yodit Ellis MD [Partnered Physician] - 10/19/17 10:45 am (The above appointment is with Dr. Ellis for neurology follow-up.) Kj Paris MD [Non-Partnered Physician] - 10/25/17 2:30 pm (The above appointment is with Dr. Paris for primary healthcare and medication management services.) Overall status at discharge: patient is back to baseline Disposition: Home, Self-Care Quality - Multiple Antipsychotics Patient discharged on 2 or more antipsychotic medications: No Procedures - Procedures Procedures: Medication Management, Crisis Stabilization, Supportive Therapy, Group Therapy, Psychoeducational Therapy
--- NOTE | 2017-10-18 17:33 | Neurology Progress Note ---
Date of Encounter: 10/18/17 Time of Encounter: 07:35 Assessment and Plan (1) Rhinorrhea Status: Resolved MRI results were discussed and explained to the patient I have also discussed with radiology she did have a sinus air-fluid level but did not have any evidence of CSF leak on imaging studies at the same time clinically she is also not having any fluid coming out of her nose or the ears. Several attempts were done to get this fluid from her nose but patient refuses and lab was not able to collect anything. Though there was a concern but I really doubt that indeed it was a true CSF leak especially clinically she does not seem to have any features off it and at the same time without any obvious trauma it seems to be very less likely in particularly no imaging findings to be suggestive of any trauma or any other significant abnormalities. Patient did have hydrocephalus on imaging studies but clinically she did not have typical magnetic gait she did have a fluctuating mental status and did have some difficulty with a gait and balance I have discussed with her in detail in the past as well as again today she is not interested in any doing a spinal tap neither want to see a neurosurgeon as according to her she did not want to have a shunt placed in her head. At this time as mentioned earlier I really doubt it is a true CSF leak it was a concern but does not seem to be true but regardless I have explained to the patient that I would like to see her back in a few weeks back in the office at the same time I would suggest that she should be evaluated by ENT as well because of the sinus issues. If she develop any new or symptoms or any other new problems she should contact us or go to the emergency room she does understand and acknowledges it. 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 She is alert and awake not much headaches, I did not see any leak from the nose neither from the ears. Patient denies any headaches now but says that it will come on so. She continued to have these headaches often on MRI of the brain did not show any new acute abnormality. Continued to have dilated ventricles and Chiari malformation. Lab was not done in particularly to look for glucose in the nasal secretion Patient seemed to be doing much better today she is alert awake and oriented able to have a reasonable conversation she is able to recognize me also and able to recognize a previous conversation regarding the hydrocephalus. She denies any runny nose now I have explained the MRI results to her she does understand that it could be related to the sinus and allergies. Denies any significant headaches wanted to go home she seemed to be back to her baseline as she was in the past not having as much agitation as she was having it earlier Objective - Constitutional Vitals: Temp Pulse Resp BP 98.2 F 87 16 139/76 10/18/17 09:00 10/18/17 09:00 10/18/17 09:00 10/18/17 09:00 - Neurological Exam Sensorimotor examination: Present: intact Motor Examination: Present: grossly full strength in all extremities Motor examination - left side: 4/5: deltoids, biceps, triceps, wrist flexion, wrist extension, hip flexors, scouts, quadriceps, tibialis Anterior, toe extension (EHL), plantarflexion Sensation intact: Present: intact Reflexes: Biceps: 1+, Triceps: 1+, Brachioradialis: 1+, Patella: 1+, Achilles: 1 + Mental Status Examination: Present: awake, alert, oriented to person, oriented to place, follows commands appropriately Cranial nerve examination: Present: PERRL, EOMI, visual pappas intact, no facial asymmetry is present (The patient has some difficulty while she is turning but able to walk with slight decrease in arm swing but no typical shuffling gait neither has any magnetic gait. She is able to get up and walk without any hesitancy.) - VTE Reasons for not Prescribing Prophylaxis: Treatment not Indicated - Low risk for VTE Results - Laboratory Findings CBC and BMP: 10/16/17 12:47 Abnormal lab findings: Abnormal lab results Potassium 5.2 mEq/L (3.5-5.1) H 10/16/17 12:47 Chloride 110 mEq/L (98-107) H 10/16/17 12:47 Est GFR (Non-Af Amer) 58 (> 60) L 10/16/17 12:47 Glucose 116 mg/dL (70-105) H 10/16/17 12:47 Consult Discharge Plan - Plan Instructions: Mood Disorders (DC), Anxiety (DC) Referrals: Yodit Ellis MD [Partnered Physician] - 10/19/17 10:45 am (The above appointment is with Dr. Ellis for neurology follow-up.) Kj Paris MD [Non-Partnered Physician] - 10/25/17 2:30 pm (The above appointment is with Dr. Paris for primary healthcare and medication management services.) Prescriptions: Nicotine Patch [Nicoderm] 21 mg TD DAILY #7 patch.td24 Nicotine Patch [Nicoderm] 21 mg TD DAILY #7 patch.td24 Quetiapine Fumarate [Seroquel] 50 mg PO HS #7 tablet
== END 2017-10-18 10:40 | disposition home or self-care (01) | DRG 884 ==
LOC: 1ANU 17:17 → SUATTDRO 17:17
PROVIDERS: ADMIT Psychiatry & Neurology Forensic Psychiatry; ATTEND Psychiatry & Neurology Psychiatry

== ENCOUNTER 2018-07-10 20:33 | Inpatient (IN) ==
[2018-07-10 21:14] LABS: Basophils # 0.1 K/mcL (0.0-0.2); Basophils % 0.6 %; Eosinophils # 0.1 K/mcL (0.0-0.6); Eosinophils % 0.4 %; Hematocrit 40.4 % (35.3-44.9); Hemoglobin 13.1 g/dL (11.5-15.4); Immature Granulocytes % 0.5 % (0-4); Lymphocytes # 2.9 K/mcL (0.6-4.6); Lymphocytes % 23.5 %; Mean Corpuscular HGB Conc 32.4 g/dL (31.6-35.5); Mean Corpuscular Hemoglobin 31.4 pg (28.0-33.3); Mean Corpuscular Volume 96.9 fL (83.0-100.0); Mean Platelet Volume 9.5 fL (9.4-12.4); Monocytes # 1.3 K/mcL (0.0-1.3); Monocytes % 10.6 %; Platelet Count 432 K/mcL (140-400); Red Blood Count 4.17 M/mcL (3.82-4.97); Red Cell Distribution Width 13.4 % (11.5-14.5); Segmented Neutrophils % 64.4 %
[2018-07-10 21:23] LABS: INR 0.9; Prothrombin Time 9.9 Seconds (9.4-12.1)
[2018-07-10 21:26] LABS: Activated Partial Thrombo Time 26.5 Seconds (26.0-36.0)
[2018-07-10 21:33] LABS: Acetaminophen < 10 mcg/mL (10-20); Salicylate < 2.5 mg/dL (15.0-30.0)
[2018-07-10 21:35] LABS: Alanine Aminotransferase 22 Units/L (7-52); Albumin 3.1 g/dL (3.5-5.7); Albumin/Globulin Ratio 1.1 (1.1-2.2); Alkaline Phosphatase 157 Units/L (34-104); Aspartate Amino Transferase 26 Units/L (13-39); BUN/Creatinine Ratio 12 (6-26); Bilirubin,Direct 0.1 mg/dL (0.0-0.2); Bilirubin,Indirect 0.5 mg/dL (0.0-1.2); Bilirubin,Total 0.6 mg/dL (0.3-1.0); Blood Urea Nitrogen 11 mg/dL (8-23); Carbon Dioxide 25 mEq/L (23-29); Chloride 102 mEq/L (98-107); Creatine Kinase 167 Units/L (30-223); Ethanol < 10 mg/dL (Less than 10); Globulin 2.9 g/dL (2.4-3.5); Glucose 120 mg/dL (70-105); Osmolality,Calculated 281 (280-300); Potassium 4.1 mEq/L (3.5-5.1); Sodium 135 mEq/L (136-145); eGFR For Non-African Americans 59 (> 60)
[2018-07-10 21:36] LABS: Troponin I < 0.03 ng/mL (< 0.04)
[2018-07-10 21:49] LABS: Thyroid Stimulating Hormone 1.415 mcIU/mL (0.340-5.600)
[2018-07-10 22:00] LABS: Bilirubin,Urine Negative (Negative); Blood,Urine Negative (Negative); Clarity,Urine Clear (Clear); Color,Urine Yellow (Yellow); Glucose,Urine (UA) Normal (Normal); Ketones,Urine Negative (Negative); Leukocyte Esterase,Urine Negative (Negative); Nitrite,Urine Negative (Negative); PH,Urine 5.5 pH Units (5.0-8.0); Protein,Urine Negative (Neg-Trace); Specific Gravity,Urine 1.013 (1.010-1.025); Urobilinogen,Urine Normal (Normal)
[2018-07-10 22:13] LABS: Amphetamine Screen,Urine Negative ng/mL (Cutoff=1000); Barbiturate Screen,Urine Negative ng/mL (Cutoff=200); Benzodiazepines Screen,Urine Negative ng/mL (Cutoff=200); Cannabinoid Screen,Urine Negative ng/mL (Cutoff = 50); Cocaine Screen,Urine Negative ng/mL (Cutoff= 300); Opiate Screen,Urine Negative ng/mL (Cutoff=300); Phencyclidine Screen,Urine Negative ng/mL (Cutoff=25)
--- NOTE | 2018-07-11 00:41 | Emergency Department Note ---
Disposition Clinical Impression: Change in mental status Qualifiers: Altered mental status type: unspecified Qualified Code(s): R41.82 - Altered mental status, unspecified Disposition: Admitted As Inpatient Condition: Fair Time of Disposition: 00:41 General Adult HPI - General Chief complaint: ED Altered Mental Status Stated complaint: AMS Time Seen by Provider: 07/10/18 20:40 Source: patient, EMS Mode of arrival: EMS Limitations: no limitations Nursing Notes Reviewed: Yes Vital Signs Reviewed: Yes - History of Present Illness HPI Narrative: Patient is a 68-year-old female with a past medical history of neurocognitive disorder, Chiari malformation, NPH, seizures, HTN, and depression presents to the parent by squad for concerns of altered mental status. According to squad family called the patient approximate 5 PM today and states that the patient was not acting herself nasally called the squad to the patient's house. Squad states they arrived to the house and the patient does appear to be altered and she is saying vulgar things and needs constant refocusing on questions. Patient also has bruising to the left face and abrasion to left forearm there is concern that the patient had a fall recently and is also concern for multiple falls per squad report from patient family. Patient herself mainly complains of left u pper extremity pain. She states that she fell 5 days ago and that she was flown by helicopter to [place] however given her tangential speech and manic-like presentation I am unsure if this is true. Pain Scale: 0 - Related Data Home Medications Medication Instructions Recorded Confirmed Lisinopril [Zestril] 5 mg PO DAILY 01/27/17 10/10/17 Ranitidine HCl [Zantac] 300 mg PO DAILY 01/27/17 10/10/17 Topiramate [Topamax] 25 mg PO DAILY 01/27/17 10/10/17 rOPINIRole [Requip] 2 mg PO HS 01/27/17 10/10/17 Aspirin/Acetaminophen/Caffeine 2 each PO Q6H PRN 10/09/17 10/10/17 [Excedrin Migraine Caplet] Cranberry Fruit Concentrate 450 mg PO DAILY 10/09/17 10/10/17 [Cranberry] Loperamide HCl [Anti-Diarrheal] 2 mg PO PER PKG DI PRN 10/09/17 10/10/17 Meloxicam 15 mg PO DAILY 10/09/17 10/10/17 Metoprolol Succinate 50 mg PO DAILY 10/09/17 10/10/17 Multivitamin [One Daily 1 each PO DAILY 10/09/17 10/10/17 Multivitamin] Potassium Chloride 10 meq PO TID 10/09/17 10/10/17 Prevagen 1 tab PO DAILY 10/09/17 10/10/17 Simethicone [Gas-X] 80 mg PO TIDAC 10/09/17 10/10/17 Previous Rx's Medication Instructions Recorded Thiamine (B-1) [Vitamin B-1] 100 mg PO DAILY #30 tablet 07/27/17 Nitrofurantoin Monohyd/M-Cryst 100 mg PO BID #5 capsule 10/10/17 [Macrobid 100 mg Capsule] Nicotine Patch [Nicoderm] 21 mg TD DAILY #7 patch.td24 10/18/17 Nicotine Patch [Nicoderm] 21 mg TD DAILY #7 patch.td24 10/18/17 Quetiapine Fumarate [Seroquel] 50 mg PO HS #7 tablet 10/18/17 Allergies Allergy/AdvReac Type Severity Reaction Status Date / Time Penicillins [PCN] Allergy See Verified 10/09/17 15:55 Comments morphine AdvReac Itching Verified 01/27/17 21:40 All systems ED: reviewed and negative except as stated. Review of Systems: As Per HPI Constitutional: Denies: fever, chills Cardiovascular: Denies: chest pain, palpitations, dyspnea on exertion Respiratory: Denies: cough, dyspnea, wheezes Gastrointestinal: Denies: abdominal pain, nausea, vomiting, diarrhea Genitourinary: Denies: urgency, dysuria, frequency Musculoskeletal: Denies: back pain, neck pain Integumentary: Denies: rash Neurological: Denies: headache, weakness, numbness, paresthesias, confusion Past Medical History - Past Medical History Attestation: Yes The following information was validated with the patient. Medical history: Reports: coronary artery disease, hypertension, myocardial infarction, other Surgical history: Reports: non-contributory Psychiatric history: Reports: no psych history BRANCH OPERATION EVALUATION MANAGER history: Reports: no BRANCH OPERATION EVALUATION MANAGER history - Social History Smoking Status: Former smoker Smokeless Tobacco Status: No Alcohol use: Reports: none Drug use: Reports: none Physical Exam - General Limitations: no limitations General appearance: alert, in no apparent distress - Head Head exam: normocephalic, other (ecchymosis to the left-side of face. No bony crepitance of the face. ) - Eye Eye exam: Present: normal appearance, PERRL, EOMI - ENT ENT exam: normal exam, normal oropharynx, mucous membranes moist - Neck Neck exam: Present: normal inspection, full ROM, trachea midline. Absent: tenderness - Chest Chest inspection: Present: normal inspection, symmetric chest wall rise - Respiratory Respiratory exam: Present: normal lung sounds bilaterally. Absent: respiratory distress, wheezes, stridor - Cardiovascular Cardiovascular exam: Present: regular rate, normal rhythm, normal heart sounds, +S1, +S2 - Abdominal Exam Abdominal exam: Present: soft, Non-Tender, normal bowel sounds - Extremities Exam Extremities exam: Present: full ROM, tenderness (left forearm and posterior left shoulder. ROM intact. Pulses intact in all extremities.), normal capillary refill. Absent: pedal edema, joint swelling, calf tenderness - Back Exam Back exam: Present: normal inspection, full ROM. Absent: tenderness, paraspinal tenderness, vertebral tenderness - Neurological Exam Neurological exam: Present: alert, oriented X3, CN II-XII intact, normal gait, motor sensory deficit, reflexes normal - Expanded Neurological Exam Patient oriented to: Present: person, place, time Speech: Present: fluid speech Cranial nerves: EOM function (II, III, IV, ): Normal, facial sensation (V): Normal, facial palsy (VII): Normal, gag reflex (IX): Normal, spinal accessory function (XI): Normal, tongue deviation (XII): Normal Cerebellar function: finger to nose: Normal, heel to haji: Normal Cerebellar function: normal gait Motor strength - LUE: 5/5 Motor strength - RUE: 5/5 Motor strength - LLE: 5/5 Motor strength - RLE: 5/5 Sensory exam upper extremity: light touch: Normal Sensory exam lower extremity: light touch: Normal DTR: bicep (L): 2+, bicep (R): 2+, patellar (L): 2+, patellar (R): 2+ Coma Scale Eye Opening: Spontaneous Coma Scale Motor Response: Obeys Commands Coma Scale Verbal Response: Oriented Coma Scale Total: 15 - Psychiatric Psychiatric exam: Present: manic, other (Tangential speech. Vulgar responses to questions. Requires constant refocusing. ). Absent: homicidal ideation, suicidal ideation - Skin Skin exam: Present: warm, dry, intact, other (abrasions and ecchymosis present over left lateral forearm and left side of face.) Course Course Narrative: Upon arrival limited history was obtained from EMS. It appears patient was sent here for abnormal behavior. Initially the room patient had tangential speech she is very difficult to refocus for exam purposes however neurologically she seems intact. She is exhibiting manic behavior. Upon review of her records does appear that she has been admitted for similar symptoms in the past in which she has been seen by psychiatry as well as neuro. Appears neuro has seen her for NPH and recommended lumbar puncture for further assessment and evaluation patient has declined that appears patient returned back to her baseline was discharged home. Given her presentation 1A consultation was requested and they saw the patient stated that they believed to be a neurocognitive ideology and recommended neurology consultation. A multiple attempts at contacting the patient's son with the phone number provided in the medical record and by the patient with no success. The family was present in the emergency department was notified and unable to discuss the patient's case further with them. There are reports of concerns for increased fall risk for the patient at home given her current injuries my concern with her going home as her current state as well as risk for further falls, causing further injury. Discussed this with the hospitalist on-call he agrees to accept the patient. Discussed that her lab work is unremarkable her CT of her head was negative that her chest x-ray was concerning for possible pneumonia, however the patient has not had any cough and has brought up no mucus and vitals have been completely normal while she has been in the emergency department. She has required a sitter due to her behavior. Vital Signs Temperature 99.2 F 07/10/18 20:43 Pulse Rate 107 07/10/18 20:43 Respiratory Rate 18 07/10/18 20:43 Blood Pressure 144/85 07/10/18 20:43 O2 Sat by Pulse Oximetry 100 07/10/18 20:43 Temperature 98.5 F 07/11/18 06:24 Pulse Rate 98 07/11/18 06:24 Respiratory Rate 14 07/11/18 06:24 Blood Pressure 140/82 07/11/18 06:24 O2 Sat by Pulse Oximetry 96 07/11/18 06:24 Oxygen Delivery Oxygen Delivery Room Air Medical Decision Making - Medical Records Medical records reviewed: Yes I reviewed the patient's medical records. - Lab Data Lab results reviewed: Yes I reviewed the patient's lab results. Result diagrams: 07/11/18 04:06 07/11/18 04:06 Lab Results 07/10/18 07/10/18 07/10/18 Range/Units 20:56 20:56 20:56 WBC 12.4 H (4.3-11.1) K/mcL RBC 4.17 (3.82-4.97) M/mcL Hgb 13.1 (11.5-15.4) g/dL Hct 40.4 (35.3-44.9) % MCV 96.9 (83.0-100.0) fL MCH 31.4 (28.0-33.3) pg MCHC 32.4 (31.6-35.5) g/dL RDW 13.4 (11.5-14.5) % Plt Count 432 H (140-400) K/mcL MPV 9.5 (9.4-12.4) fL Immature Gran % 0.5 (0-4) % Seg Neutrophils % 64.4 % Lymphocytes % 23.5 % Monocytes % 10.6 % Eosinophils % 0.4 % Basophils % 0.6 % Neutrophils # 8.0 (1.6-8.9) K/mcL Lymphocytes # 2.9 (0.6-4.6) K/mcL Monocytes # 1.3 (0.0-1.3) K/mcL Eosinophils # 0.1 (0.0-0.6) K/mcL Basophils # 0.1 (0.0-0.2) K/mcL PT 9.9 (9.4-12.1) Seconds INR 0.9 APTT 26.5 (26.0-36.0) Seconds Sodium 135 L (136-145) mEq/L Potassium 4.1 (3.5-5.1) mEq/L Chloride 102 (98-107) mEq/L Carbon Dioxide 25 (23-29) mEq/L BUN 11 (8-23) mg/dL Creatinine 0.94 (0.60-1.20) mg/dL Est GFR ( Amer) > 60 (> 60) Est GFR (Non-Af Amer) 59 L (> 60) BUN/Creatinine Ratio 12 (6-26) Glucose 120 H (70-105) mg/dL Calculated Osmolality 281 (280-300) Calcium 9.0 (8.6-10.3) mg/dL Total Bilirubin 0.6 (0.3-1.0) mg/dL Direct Bilirubin 0.1 (0.0-0.2) mg/dL Indirect Bilirubin 0.5 (0.0-1.2) mg/dL AST 26 (13-39) Units/L ALT 22 (7-52) Units/L Alkaline Phosphatase 157 H (34-104) Units/L Creatine Kinase 167 (30-223) Units/L Troponin I < 0.03 (< 0.04) ng/mL Serum Total Protein 6.0 L (6.4-8.9) g/dL Albumin 3.1 L (3.5-5.7) g/dL Globulin 2.9 (2.4-3.5) g/dL Albumin/Globulin Ratio 1.1 (1.1-2.2) TSH 1.415 (0.340-5.600) mcIU/mL Urine Color (Yellow) Urine Clarity (Clear) Urine pH (5.0-8.0) pH Units Ur Specific [place] (1.010-1.025) Urine Protein (Neg-Trace) mg/dL Urine Glucose (UA) (Normal) mg/dL Urine Ketones (Negative) mg/dL Urine Blood (Negative) Urine Nitrite (Negative) Urine Bilirubin (Negative) Urine Urobilinogen (Normal) mg/dL Ur Leukocyte Esterase (Negative) Ur Culture Indicated? (NO) Salicylates (15.0-30.0) mg/dL Urine Opiates Screen (Tukvse=002) ng/mL Acetaminophen (10-20) mcg/mL Ur Barbiturates Screen (Pfarbh=384) ng/mL Ur Phencyclidine Scrn (Cutoff=25) ng/mL Ur Amphetamines Screen (Sjdqmj=4686) ng/mL U Benzodiazepines Scrn (Tmwquh=835) ng/mL Urine Cocaine Screen (Cutoff= 300) ng/mL U Marijuana (THC) Screen (Cutoff = 50) ng/mL Ur Drug Screen Interp Ethyl Alcohol < 10 (Less than 10) mg/dL 12/18/18 12/18/18 12/18/18 Range/Units 20:56 21:52 21:52 WBC (4.3-11.1) K/mcL RBC (3.82-4.97) M/mcL Hgb (11.5-15.4) g/dL Hct (35.3-44.9) % MCV (83.0-100.0) fL MCH (28.0-33.3) pg MCHC (31.6-35.5) g/dL RDW (11.5-14.5) % Plt Count (140-400) K/mcL MPV (9.4-12.4) fL Immature Gran % (0-4) % Seg Neutrophils % % Lymphocytes % % Monocytes % % Eosinophils % % Basophils % % Neutrophils # (1.6-8.9) K/mcL Lymphocytes # (0.6-4.6) K/mcL Monocytes # (0.0-1.3) K/mcL Eosinophils # (0.0-0.6) K/mcL Basophils # (0.0-0.2) K/mcL PT (9.4-12.1) Seconds INR APTT (26.0-36.0) Seconds Sodium (136-145) mEq/L Potassium (3.5-5.1) mEq/L Chloride (98-107) mEq/L Carbon Dioxide (23-29) mEq/L BUN (8-23) mg/dL Creatinine (0.60-1.20) mg/dL Est GFR ( Amer) (> 60) Est GFR (Non-Af Amer) (> 60) BUN/Creatinine Ratio (6-26) Glucose (70-105) mg/dL Calculated Osmolality (280-300) Calcium (8.6-10.3) mg/dL Total Bilirubin (0.3-1.0) mg/dL Direct Bilirubin (0.0-0.2) mg/dL Indirect Bilirubin (0.0-1.2) mg/dL AST (13-39) Units/L ALT (7-52) Units/L Alkaline Phosphatase (34-104) Units/L Creatine Kinase (30-223) Units/L Troponin I (< 0.04) ng/mL Serum Total Protein (6.4-8.9) g/dL Albumin (3.5-5.7) g/dL Globulin (2.4-3.5) g/dL Albumin/Globulin Ratio (1.1-2.2) TSH (0.340-5.600) mcIU/mL Urine Color Yellow (Yellow) Urine Clarity Clear (Clear) Urine pH 5.5 (5.0-8.0) pH Units Ur Specific [place] 1.013 (1.010-1.025) Urine Protein Negative (Neg-Trace) mg/dL Urine Glucose (UA) Normal (Normal) mg/dL Urine Ketones Negative (Negative) mg/dL Urine Blood Negative (Negative) Urine Nitrite Negative (Negative) Urine Bilirubin Negative (Negative) Urine Urobilinogen Normal (Normal) mg/dL Ur Leukocyte Esterase Negative (Negative) Ur Culture Indicated? NO (NO) Salicylates < 2.5 L (15.0-30.0) mg/dL Urine Opiates Screen Negative (Mnkneb=404) ng/mL Acetaminophen < 10 L (10-20) mcg/mL Ur Barbiturates Screen Negative (Fxztim=337) ng/mL Ur Phencyclidine Scrn Negative (Cutoff=25) ng/mL Ur Amphetamines Screen Negative (Ipvclq=5238) ng/mL U Benzodiazepines Scrn Negative (Jiyjce=027) ng/mL Urine Cocaine Screen Negative (Cutoff= 300) ng/mL U Marijuana (THC) Screen Negative (Cutoff = 50) ng/mL Ur Drug Screen Interp See Below Ethyl Alcohol (Less than 10) mg/dL - Radiology Data Radiology results reviewed: Yes I reviewed the patient's radiology results. Chest X-Ray 07/10/18 20:43 IMPRESSION: Increasing right infrahilar airspace opacity which may reflect pneumonia in the appropriate clinical setting. Recommend short-term follow-up to ensure complete resolution. D/ / Yana Velasquez MD / Yana Velasquez MD Interpreting Provider: Yana Velasquez MD Cervical Spine CT 07/10/18 20:44 IMPRESSION: No acute intracranial abnormality. D/ / Krishna Antunez / Krishna Antunez Interpreting Provider: Krishna Antunez Head CT 07/10/18 20:44 IMPRESSION: No acute intracranial abnormality. D/ / Krishna Antunez / Krishna Antunez Interpreting Provider: Krishna Antunez Forearm X-Ray 07/10/18 21:32 IMPRESSION: Left shoulder: No acute abnormality detected. Left forearm: No acute abnormality detected. D/ / Canelo Oconnor MD / Canelo Oconnor MD Interpreting Provider: Canelo Oconnor MD Shoulder X-Ray 07/10/18 21:32 IMPRESSION: Left shoulder: No acute abnormality detected. Left forearm: No acute abnormality detected. D/ / Canelo Oconnor MD / Canelo Oconnor MD Interpreting Provider: Canelo Oconnor MD - EKG Data EKG #1 EKG attestation: Yes I reviewed and interpreted this EKG. EKG results narrative: EKG done at 20:51 shows sinus tachycardia rate 120 bpm. Left bundle-branch block. Unchanged from old EKG done on 01/22/2017.
--- NOTE | 2018-07-11 01:49 | Emergency Department Note ---
Disposition Clinical Impression: Change in mental status Qualifiers: Altered mental status type: unspecified Qualified Code(s): R41.82 - Altered mental status, unspecified Disposition: Admitted As Inpatient Condition: Fair General Adult HPI - General Chief complaint: ED Altered Mental Status Stated complaint: AMS Time Seen by Provider: 07/10/18 20:40 Source: patient, EMS Mode of arrival: EMS Limitations: no limitations Nursing Notes Reviewed: Yes Vital Signs Reviewed: Yes - History of Present Illness Pain Scale: 0 - Related Data Home Medications Medication Instructions Recorded Confirmed Lisinopril [Zestril] 5 mg PO DAILY 01/27/17 10/10/17 Ranitidine HCl [Zantac] 300 mg PO DAILY 01/27/17 10/10/17 Topiramate [Topamax] 25 mg PO DAILY 01/27/17 10/10/17 rOPINIRole [Requip] 2 mg PO HS 01/27/17 10/10/17 Aspirin/Acetaminophen/Caffeine 2 each PO Q6H PRN 10/09/17 10/10/17 [Excedrin Migraine Caplet] Cranberry Fruit Concentrate 450 mg PO DAILY 10/09/17 10/10/17 [Cranberry] Loperamide HCl [Anti-Diarrheal] 2 mg PO PER PKG DI PRN 10/09/17 10/10/17 Meloxicam 15 mg PO DAILY 10/09/17 10/10/17 Metoprolol Succinate 50 mg PO DAILY 10/09/17 10/10/17 Multivitamin [One Daily 1 each PO DAILY 10/09/17 10/10/17 Multivitamin] Potassium Chloride 10 meq PO TID 10/09/17 10/10/17 Prevagen 1 tab PO DAILY 10/09/17 10/10/17 Simethicone [Gas-X] 80 mg PO TIDAC 10/09/17 10/10/17 Previous Rx's Medication Instructions Recorded Thiamine (B-1) [Vitamin B-1] 100 mg PO DAILY #30 tablet 07/27/17 Nitrofurantoin Monohyd/M-Cryst 100 mg PO BID #5 capsule 10/10/17 [Macrobid 100 mg Capsule] Nicotine Patch [Nicoderm] 21 mg TD DAILY #7 patch.td24 10/18/17 Nicotine Patch [Nicoderm] 21 mg TD DAILY #7 patch.td24 10/18/17 Quetiapine Fumarate [Seroquel] 50 mg PO HS #7 tablet 10/18/17 Allergies Allergy/AdvReac Type Severity Reaction Status Date / Time Penicillins [PCN] Allergy See Verified 10/09/17 15:55 Comments morphine AdvReac Itching Verified 01/27/17 21:40 Constitutional: Denies: fever, chills Cardiovascular: Denies: chest pain, palpitations, dyspnea on exertion Respiratory: Denies: cough, dyspnea, wheezes Gastrointestinal: Denies: abdominal pain, nausea, vomiting, diarrhea Genitourinary: Denies: urgency, dysuria, frequency Musculoskeletal: Denies: back pain, neck pain Integumentary: Denies: rash Neurological: Denies: headache, weakness, numbness, paresthesias, confusion Past Medical History - Past Medical History Medical history: Reports: coronary artery disease, hypertension, myocardial infarction, other Surgical history: Reports: non-contributory Psychiatric history: Reports: no psych history 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 - Social History Smoking Status: Former smoker Smokeless Tobacco Status: No Alcohol use: Reports: none Drug use: Reports: none Physical Exam - General Limitations: no limitations General appearance: alert, in no apparent distress Course Vital Signs Temperature 99.2 F 07/10/18 20:43 Pulse Rate 107 07/10/18 20:43 Respiratory Rate 18 07/10/18 20:43 Blood Pressure 144/85 07/10/18 20:43 O2 Sat by Pulse Oximetry 100 07/10/18 20:43 Temperature 98.2 F 07/11/18 01:56 Pulse Rate 95 07/11/18 01:56 Respiratory Rate 14 07/11/18 01:56 Blood Pressure 172/94 07/11/18 01:56 O2 Sat by Pulse Oximetry 96 07/11/18 01:56 Oxygen Delivery Oxygen Delivery Room Air Medical Decision Making - Medical Records Medical records reviewed: Yes I reviewed the patient's medical records. - Lab Data Lab results reviewed: Yes I reviewed the patient's lab results. Result diagrams: 07/11/18 04:06 07/11/18 04:06 Lab Results 07/10/18 07/10/18 07/10/18 Range/Units 20:56 20:56 20:56 WBC 12.4 H (4.3-11.1) K/mcL RBC 4.17 (3.82-4.97) M/mcL Hgb 13.1 (11.5-15.4) g/dL Hct 40.4 (35.3-44.9) % MCV 96.9 (83.0-100.0) fL MCH 31.4 (28.0-33.3) pg MCHC 32.4 (31.6-35.5) g/dL RDW 13.4 (11.5-14.5) % Plt Count 432 H (140-400) K/mcL MPV 9.5 (9.4-12.4) fL Immature Gran % 0.5 (0-4) % Seg Neutrophils % 64.4 % Lymphocytes % 23.5 % Monocytes % 10.6 % Eosinophils % 0.4 % Basophils % 0.6 % Neutrophils # 8.0 (1.6-8.9) K/mcL Lymphocytes # 2.9 (0.6-4.6) K/mcL Monocytes # 1.3 (0.0-1.3) K/mcL Eosinophils # 0.1 (0.0-0.6) K/mcL Basophils # 0.1 (0.0-0.2) K/mcL PT 9.9 (9.4-12.1) Seconds INR 0.9 APTT 26.5 (26.0-36.0) Seconds Sodium 135 L (136-145) mEq/L Potassium 4.1 (3.5-5.1) mEq/L Chloride 102 (98-107) mEq/L Carbon Dioxide 25 (23-29) mEq/L BUN 11 (8-23) mg/dL Creatinine 0.94 (0.60-1.20) mg/dL Est GFR ( Amer) > 60 (> 60) Est GFR (Non-Af Amer) 59 L (> 60) BUN/Creatinine Ratio 12 (6-26) Glucose 120 H (70-105) mg/dL Calculated Osmolality 281 (280-300) Calcium 9.0 (8.6-10.3) mg/dL Total Bilirubin 0.6 (0.3-1.0) mg/dL Direct Bilirubin 0.1 (0.0-0.2) mg/dL Indirect Bilirubin 0.5 (0.0-1.2) mg/dL AST 26 (13-39) Units/L ALT 22 (7-52) Units/L Alkaline Phosphatase 157 H (34-104) Units/L Creatine Kinase 167 (30-223) Units/L Troponin I < 0.03 (< 0.04) ng/mL Serum Total Protein 6.0 L (6.4-8.9) g/dL Albumin 3.1 L (3.5-5.7) g/dL Globulin 2.9 (2.4-3.5) g/dL Albumin/Globulin Ratio 1.1 (1.1-2.2) TSH 1.415 (0.340-5.600) mcIU/mL Urine Color (Yellow) Urine Clarity (Clear) Urine pH (5.0-8.0) pH Units Ur Specific Hayes (1.010-1.025) Urine Protein (Neg-Trace) mg/dL Urine Glucose (UA) (Normal) mg/dL Urine Ketones (Negative) mg/dL Urine Blood (Negative) Urine Nitrite (Negative) Urine Bilirubin (Negative) Urine Urobilinogen (Normal) mg/dL Ur Leukocyte Esterase (Negative) Ur Culture Indicated? (NO) Salicylates (15.0-30.0) mg/dL Urine Opiates Screen (Hzmdri=692) ng/mL Acetaminophen (10-20) mcg/mL Ur Barbiturates Screen (Qnlmzc=370) ng/mL Ur Phencyclidine Scrn (Cutoff=25) ng/mL Ur Amphetamines Screen (Zatsol=7731) ng/mL U Benzodiazepines Scrn (Hnerxh=167) ng/mL Urine Cocaine Screen (Cutoff= 300) ng/mL U Marijuana (THC) Screen (Cutoff = 50) ng/mL Ur Drug Screen Interp Ethyl Alcohol < 10 (Less than 10) mg/dL 07/10/18 07/10/18 07/10/18 Range/Units 20:56 21:52 21:52 WBC (4.3-11.1) K/mcL RBC (3.82-4.97) M/mcL Hgb (11.5-15.4) g/dL Hct (35.3-44.9) % MCV (83.0-100.0) fL MCH (28.0-33.3) pg MCHC (31.6-35.5) g/dL RDW (11.5-14.5) % Plt Count (140-400) K/mcL MPV (9.4-12.4) fL Immature Gran % (0-4) % Seg Neutrophils % % Lymphocytes % % Monocytes % % Eosinophils % % Basophils % % Neutrophils # (1.6-8.9) K/mcL Lymphocytes # (0.6-4.6) K/mcL Monocytes # (0.0-1.3) K/mcL Eosinophils # (0.0-0.6) K/mcL Basophils # (0.0-0.2) K/mcL PT (9.4-12.1) Seconds INR APTT (26.0-36.0) Seconds Sodium (136-145) mEq/L Potassium (3.5-5.1) mEq/L Chloride (98-107) mEq/L Carbon Dioxide (23-29) mEq/L BUN (8-23) mg/dL Creatinine (0.60-1.20) mg/dL Est GFR ( Amer) (> 60) Est GFR (Non-Af Amer) (> 60) BUN/Creatinine Ratio (6-26) Glucose (70-105) mg/dL Calculated Osmolality (280-300) Calcium (8.6-10.3) mg/dL Total Bilirubin (0.3-1.0) mg/dL Direct Bilirubin (0.0-0.2) mg/dL Indirect Bilirubin (0.0-1.2) mg/dL AST (13-39) Units/L ALT (7-52) Units/L Alkaline Phosphatase (34-104) Units/L Creatine Kinase (30-223) Units/L Troponin I (< 0.04) ng/mL Serum Total Protein (6.4-8.9) g/dL Albumin (3.5-5.7) g/dL Globulin (2.4-3.5) g/dL Albumin/Globulin Ratio (1.1-2.2) TSH (0.340-5.600) mcIU/mL Urine Color Yellow (Yellow) Urine Clarity Clear (Clear) Urine pH 5.5 (5.0-8.0) pH Units Ur Specific Hayes 1.013 (1.010-1.025) Urine Protein Negative (Neg-Trace) mg/dL Urine Glucose (UA) Normal (Normal) mg/dL Urine Ketones Negative (Negative) mg/dL Urine Blood Negative (Negative) Urine Nitrite Negative (Negative) Urine Bilirubin Negative (Negative) Urine Urobilinogen Normal (Normal) mg/dL Ur Leukocyte Esterase Negative (Negative) Ur Culture Indicated? NO (NO) Salicylates < 2.5 L (15.0-30.0) mg/dL Urine Opiates Screen Negative (Gcgeuw=332) ng/mL Acetaminophen < 10 L (10-20) mcg/mL Ur Barbiturates Screen Negative (Gswddj=222) ng/mL Ur Phencyclidine Scrn Negative (Cutoff=25) ng/mL Ur Amphetamines Screen Negative (Ywusin=2736) ng/mL U Benzodiazepines Scrn Negative (Yeeebv=427) ng/mL Urine Cocaine Screen Negative (Cutoff= 300) ng/mL U Marijuana (THC) Screen Negative (Cutoff = 50) ng/mL Ur Drug Screen Interp See Below Ethyl Alcohol (Less than 10) mg/dL - Radiology Data Radiology results reviewed: Yes I reviewed the patient's radiology results. Chest X-Ray 07/10/18 20:43 IMPRESSION: Increasing right infrahilar airspace opacity which may reflect pneumonia in the appropriate clinical setting. Recommend short-term follow-up to ensure complete resolution. D/ / Yana Velasquez MD / Yana Velasquez MD Interpreting Provider: Yana Velasquez MD Cervical Spine CT 07/10/18 20:44 IMPRESSION: No acute intracranial abnormality. D/ / Krishna Antunez / Krishna Antunez Interpreting Provider: Krishna Antunez Head CT 07/10/18 20:44 IMPRESSION: No acute intracranial abnormality. D/ / Krishna Antunez / Krishna Antunez Interpreting Provider: Krishna Antunez Forearm X-Ray 07/10/18 21:32 IMPRESSION: Left shoulder: No acute abnormality detected. Left forearm: No acute abnormality detected. D/ / Canelo Oconnor MD / Canelo Oconnor MD Interpreting Provider: Canelo Oconnor MD Shoulder X-Ray 07/10/18 21:32 IMPRESSION: Left shoulder: No acute abnormality detected. Left forearm: No acute abnormality detected. D/ / Canelo Oconnor MD / Canelo Oconnor MD Interpreting Provider: Canelo Oconnor MD - EKG Data EKG #1 EKG attestation: Yes I reviewed and interpreted this EKG. EKG results narrative: EKG showed a sinus tachycardia with ventricular rate of 120. Left bundle branch block. Unchanged from prior EKG dated 01/22/2017. Attestation Statement - Attestation Attestation: I, Shashi Crawford MD, personally evaluated this patient and discussed their management with the resident physician. I reviewed the resident's note and agree with the documented findings, medical decision making, and plan of care. 68-year-old female presents to the emergency department by EMS for altered mental status. Patient lives alone. Apparently family called her this evening and felt that she was not making sense on the phone and called EMS. On arrival here the patient is awake and alert. She complains of some bilateral lower anterior rib pain. No other specific complaints. Patient is somewhat manic and acts intoxicated. Rambling speech. Patient has old bruising in the left periorbital region. She states that she did have a fall but does not know when it happened. She states that they flew her by helicopter from here to [place] for that she is still paying the bills. On reviewing the records there is no record of her being here recently for a fall or other injury. Last notation in her records was from April. This bruising appears to be only days old. On examination patient is a well-developed thin elderly female in no acute distress. She is alert. There is no cyanosis or diaphoresis. She is somewhat cooperative but has rambling speech and answers some questions inappropriately. There is some old ecchymosis of the left periorbital region which appears to be at least several days old. No gross focal neurological deficits. Breath sounds are decreased but equal bilaterally. Heart regular with a mild tachy cardia. Abdomen is soft and nontender with normal bowel sounds. Labs reviewed. Tox screen negative. Alcohol level negative. EKG shows a sinus tachycardia with no acute changes. Chest x-ray shows some right infrahilar opacity which could possibly represent pneumonia. Patient has no symptoms of pneumonia. Head CT negative. X-ray of the left shoulder and left forearm was negative. Patient was medically cleared for psychiatric evaluation. [address] psychiatry department was consulted and evaluated the patient in the emergency department and felt this was not a psychiatric issue. Possibly related to dementia. Her records reveal similar episodes in the past. The hospitalist, Dr. Vega, was consulted and accepted admission of the patient.
[2018-07-11] MEDS ORDERED: 0.9 % Sodium Chloride 1,000 ML ONE (01:56)
[2018-07-11] MEDS: rOPINIRole 1 MG TABLET PO SCH ×2 (02:06→20:33)
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
[2018-07-11] MEDS ORDERED: 0.9 % Sodium Chloride 1,000 ML IVC SCH (02:15)
[2018-07-11 04:33] LABS: Basophils # 0.1 K/mcL (0.0-0.2); Basophils % 0.8 %; Eosinophils # 0.1 K/mcL (0.0-0.6); Eosinophils % 1.5 %; Hematocrit 31.1 % (35.3-44.9); Immature Granulocytes % 0.4 % (0-4); Lymphocytes # 2.3 K/mcL (0.6-4.6); Lymphocytes % 31.5 %; Mean Corpuscular HGB Conc 32.8 g/dL (31.6-35.5); Mean Corpuscular Hemoglobin 31.8 pg (28.0-33.3); Mean Corpuscular Volume 96.9 fL (83.0-100.0); Mean Platelet Volume 9.5 fL (9.4-12.4); Monocytes # 0.9 K/mcL (0.0-1.3); Monocytes % 12.4 %; Neutrophils # 3.9 K/mcL (1.6-8.9); Platelet Count 326 K/mcL (140-400); Red Blood Count 3.21 M/mcL (3.82-4.97); Red Cell Distribution Width 13.3 % (11.5-14.5); Segmented Neutrophils % 53.4 %
[2018-07-11 04:39] LABS: Hemoglobin 10.2 g/dL (11.5-15.4)
[2018-07-11 04:51] LABS: BUN/Creatinine Ratio 11 (6-26); Blood Urea Nitrogen 9 mg/dL (8-23); Calcium 7.8 mg/dL (8.6-10.3); Carbon Dioxide 25 mEq/L (23-29); Chloride 110 mEq/L (98-107); Creatine Kinase 126 Units/L (30-223); Glucose 99 mg/dL (70-105); Osmolality,Calculated 289 (280-300); Potassium 3.9 mEq/L (3.5-5.1); Sodium 140 mEq/L (136-145); eGFR For Non-African Americans > 60 (> 60)
[2018-07-11] MEDS: *HR* Heparin 5,000 UNIT/ML VIAL SQ SCH ×2 (06:18→17:34)
[2018-07-11] MEDS: Metoprolol XL (24 HR) Succ 50 MG TAB.ER.24H PO SCH (09:27)
[2018-07-11] MEDS: Thiamine (B-1) 100 MG TABLET PO SCH (09:27)
[2018-07-11] MEDS: Multivit/Ca/Min/Fe/FA 1 TAB TABLET PO SCH (09:27)
[2018-07-11] MEDS: Famotidine 20 MG TABLET PO SCH (09:28)
[2018-07-11] MEDS: Nicotine 21 MG PATCH.TD24 TD SCH (09:30)
--- NOTE | 2018-07-11 09:37 | Event Note ---
Date of Encounter: 07/11/18 Time of Encounter: 09:27 Patient was seen earlier this am by hospitalist services. Currently she is alert and oriented x3 She has difficulty following simple commands because she easily distracted- she requires redirection during conversation she has flight of ideas Currently she is hemodynamically stable and does not appear to be in any distress.
--- NOTE | 2018-07-11 09:56 | Neurology - Consult Note ---
Addendum entered and electronically signed by Teresa Delgado MD 07/11/18 17:14: Patient seen and examined. Case discussed and imaging studies reviewed together with Dr. Ashish Jimenez and I agree with his history taking, physical examination assessment and plan outline below, with the following recommendations. Patient states that she tripped over a long cord and that was why she fell. She has fluent speech, fast but scattered thought process and appears still agitated, due to the fact that she wanted to go home. She refused further testing. I asked her to walk and she refused and says that she walked with the nurse today. She reports a headache and says that she was refused to be given tramadol. She stats that she is fine and wants to go home. It was decided initially that she needs an MRI of thoracic spine to rule out cervical synrinx but here when being examined i found no clinical evidence of cervical myelopathy, she likely has already had work up for that when in [facility]. So i recommended that an MRI of thoracic spine is not needed and it is cancelled. 1. I reviewed the CT of head and i saw no changes from previous study. If NPH is a concern then she should follow with neurosurgery at [facility]. 2. as far as the mental status changes, it appears that the patient is having more of disordered thorough process for which from neurology perspective not much to intervene. 3. Eventually patient adamant that she would want to go home, she states that she would rather see her PCP DR. Jeferson Ken and it is suggested that she follow up with DR. Ken. 4. Please remember anything related to the management of NPH would be best answered by her neurosurgery who has already evaluated her. Will sign off at this time. Please call if any questions. Original Note: Date of Encounter: 07/11/18 Time of Encounter: 09:55 Assessment and Plan (1) Neuropsychiatric disorder Current Visit: Yes Status: Acute - Presented with altered mental status - Patients family reported that she was not acting herself - Per chart review, patient was demonstrating manic behavior - Required constant refocusing on questions - Continue Seroquel 50 mg by mouth at bedtime - Patient has previously been evaluated by psychiatry and neurology with inconclusive results - There was a prior concern for NPH; patient had an MRI that demonstrated large ventricles - Neurology at that time recommended an LP to further evaluate; patient declined - Per chart review, patient has also been worked up at [facility] and has been determined to not be a shunt candidate at this time Plan: - Continue fall and seizure precautions - Continue Requip and Seroquel - Since patient has a history of Chiari 1 malformation, we will obtain MRI of thoracic spine to r/o syringomyelia (2) Unwitnessed fall Current Visit: Yes Status: Acute - Patient presented with notable traumatic injuries, including bruising on the left side of her face and an abrasion on the left forearm - Per chart review, patient had told squad that she had fallen 5 days prior - CT scan of the head and cervical spine showed no fracture or clinical signs of soft tissue swelling Plan: - Fall precautions - Pain control as needed (3) Dilated ventricle Current Visit: Yes Status: Chronic - Patient had large ventricles per MRI - Patient has been worked up at [facility]; has been determined not to be a candidate for shunting at this time History of Present Illness HPI: Park Bowles is a 68 year old female with a PMH of CAD, HTN, myocardial infarction, Ester malformation, seizures, NPH, and no neuropsychiatric illness who presented to [facility] ED on 07/11/18 via EMS for altered mental status. The patients family called at approximately 5 PM and stated that the patient was not acting herself. Patient apparently was saying vulgar things when EMS arrived, and required constant refocusing on questions. She also had bruising present on the left side of her face as well as an abrasion to the left forearm. Concern for recent fall. Patient has a known history of multiple falls per family. She also complained of some left upper extremity pain. Patient was examining manic behavior per chart review. Patient has had similar episodes in the past; has been seen by both neurology and psychiatry. Neurology had seen her in the past for NPH and recommended a lumbar puncture for further assessment and evaluation. The patient declined this. Patient has also been evaluated at [facility] in the past, and was determined not to be a candidate for shunting. Upon arrival to the ED, patients vital signs were as follows: Temperature 99.2, pulse 107, respiratory rate 18, blood pressure 144/85, O2 saturation 100. Both head and cervical spine CT were unremarkable. Patient was seen and examined at bedside; and is seemingly unable to focus. 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 She was able to state her full name, where she was at, and the year. She stated repeatedly that she had a headache, although she was unable to provide further details. She also stated that her vision in her left eye was slightly decreased ever since her fall, but again was and able to provide specifics. When asked about her fall, patient stated that she tripped and fell over a cord. She ate knowledge that she has had previous falls, but is unable to provide any details. During interview, patient appeared to be calm more agitated, and asked if we could and the interview. She refused to be examined. Past Med Surg Social Fam HX - Past Medical History Medical history: coronary artery disease, hypertension, myocardial infarction, other Additional medical history: Smoker Psychiatric history: no psych history - Past Surgical History Surgical History: non-contributory Additional surgical history: "stomach surgery for Crohns" - Social History Smoking Status: Former smoker Smokeless Tobacco Status: No Alcohol use: none Drug use: none - Family History Mother Adopted: No Family Member Ethnicity: Non- Living Status: Hx Family Cardiac Disorders: No Hx Family Respiratory Disorders: No Hx Family Cancer: Yes Hx Family GI Disorders: ("not sure") Hx Family Endocrine Disorder: No Hx Family Neuromuscular Disorders: No Hx Family Neurologic Disorders: No Hx Family HEENT Disorders: No Hx Family Autoimmune Disorders: No Medications and Allergies Lisinopril [Zestril] 5 mg PO DAILY 01/27/17 [History] Ranitidine HCl [Zantac] 300 mg PO DAILY 01/27/17 [History] rOPINIRole [Requip] 2 mg PO HS 01/27/17 [History] Aspirin/Acetaminophen/Caffeine [Excedrin Migraine Caplet] 2 each PO Q6H PRN 10/09/17 [History] Cranberry Fruit Concentrate [Cranberry] 450 mg PO DAILY 10/09/17 [History] Meloxicam 15 mg PO DAILY 10/09/17 [History] Metoprolol Succinate 50 mg PO DAILY 10/09/17 [History] Multivitamin [One Daily Multivitamin] 1 each PO DAILY 10/09/17 [History] Potassium Chloride 10 meq PO TID 10/09/17 [History] Nicotine Patch [Nicoderm] 21 mg TD DAILY #7 patch.td24 10/18/17 [Rx] Furosemide [Lasix] 20 mg PO DAILY 07/11/18 [History] Loperamide [Imodium] 2 mg PO BID PRN 07/11/18 [History] Allergy/AdvReac Type Severity Reaction Status Date / Time Penicillins [PCN] Allergy See Verified 10/09/17 15:55 Comments morphine AdvReac Itching Verified 01/27/17 21:40 All Systems: The remainder of the systems were reviewed and are negative Physical Examination - Vital Signs Vital Signs: Initial Vital Signs Temp Pulse Resp BP Pulse Ox 99.2 F 107 18 144/85 100 07/10/18 20:43 07/10/18 20:43 07/10/18 20:43 07/10/18 20:43 07/10/18 20:43 - Exam Exam: Patient is alert and oriented 3 Refuses physical examination at this time - Constitutional General appearance: comfortable - Neurologic Mental Status Examination: awake, alert, oriented to person, oriented to place, oriented to time Cranial nerve examination: PERRL, EOMI Results - Laboratory Findings CBC and BMP: 07/11/18 04:06 07/11/18 04:06 Abnormal lab findings: Abnormal lab results RBC 3.21 M/mcL (3.82-4.97) L 07/11/18 04:06 Hgb 10.2 g/dL (11.5-15.4) L D 07/11/18 04:06 Hct 31.1 % (35.3-44.9) L 07/11/18 04:06 Chloride 110 mEq/L (98-107) H 07/11/18 04:06 Calcium 7.8 mg/dL (8.6-10.3) L 07/11/18 04:06 Alkaline Phosphatase 157 Units/L (34-104) H 07/10/18 20:56 Serum Total Protein 6.0 g/dL (6.4-8.9) L 07/10/18 20:56 Albumin 3.1 g/dL (3.5-5.7) L 07/10/18 20:56 Salicylates < 2.5 mg/dL (15.0-30.0) L 07/10/18 20:56 Acetaminophen < 10 mcg/mL (10-20) L 07/10/18 20:56 Consult Discharge Plan - Plan Referrals: Kj Paris MD [Non-Partnered Physician] - (Hospital Follow up appointment has been requested. )
[2018-07-11] MEDS: Acetaminophen/Aspirin/Caffeine TABLET PO PRN ×2 (11:57→18:17)
--- NOTE | 2018-07-11 18:24 | Consult Note ---
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 Bowles is a 68 year old female Chief complaint: I am doing fine and I want to go home. The patient is known to our service. The patient was diagnosed with mood disorder due to general medical condition, manic type. She did not have psychosis. The patient has an abnormal head CT and abnormal MRI. She has evidence of hydrocephalus which is probably associated with Arnold Chiari malformation. The patient has been treated with 50 mg of Seroquel. The patient did well on confrontational testing but still has minor findings of disinhibition, socially inappropriate speech, confabulation and perseveration. This suggests frontal lobe dysfunction but not severe enough to indicate that s he is not capable of self-care living independently. 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 Patients with minor neurocognitive disorder may be able to live independently and carry out activities of in independent living and self-care. The patient's gait and unsteadiness is been of concern and may also go into her evaluation to live independently. At this point I would recommend the followin. continue current psychiatric medicines 2. discuss the reason for admission with next of kin. The patient appears to be at her baseline when I last saw her and at the time of discharge from our unit. 3. some level of home assessment may be helpful to determine her ability to go back home and live independently 4. the patient may be a candidate for outpatient psychiatric follow-up or neurologist or primary care provider to continue the medicine Seroquel. If there is further concern at geriatric psychiatry unit may be considered. The p atient does not want to go to a psychiatric unit and further evaluation to see if she meets criteria for involuntary hospitalization is necessary. 5. I have previously recommended an EEG or electroencephalogram. This may be helpful for further neurologic workup, to identify seizures if present and to serve as a baseline in case of a decline in mental status functioning or progression of central nervous system disease. 6. I plan to follow with you, to help in the determination of her level of care. CC: Yuly Vega MD Past Med Surg Social Fam HX - Past Medical History Medical history: coronary artery disease, hypertension, myocardial infarction, other - Past Psychiatric History Psychiatric history: Reports: previous psychiatric hospitalization Family psychiatric history: Unknown Family History of Suicide: Unknown - Past Surgical History Surgical History: non-contributory - Social History Smoking Status: Former smoker Smokeless Tobacco Status: No Alcohol use: none Drug use: none Occupational status: retired Current living situation: Home Activity Level: Independent ambulation Recent Out of Country Travel Within the Last 8 Weeks: No Exposure or Possible Exposure to Illness During Travel: No - Family History Mother Adopted: No Family Member Ethnicity: Non- Living Status: Hx Family Cardiac Disorders: No Hx Family Respiratory Disorders: No Hx Family Cancer: Yes Hx Family GI Disorders: ("not sure") Hx Family Endocrine Disorder: No Hx Family Neuromuscular Disorders: No Hx Family Neurologic Disorders: No Hx Family HEENT Disorders: No Hx Family Autoimmune Disorders: No Medications & Allergies Lisinopril [Zestril] 5 mg PO DAILY 01/27/17 [History] Ranitidine HCl [Zantac] 300 mg PO DAILY 01/27/17 [History] rOPINIRole [Requip] 2 mg PO HS 01/27/17 [History] Aspirin/Acetaminophen/Caffeine [Excedrin Migraine Caplet] 2 each PO Q6H PRN 10/09/17 [History] Cranberry Fruit Concentrate [Cranberry] 450 mg PO DAILY 10/09/17 [History] Meloxicam 15 mg PO DAILY 10/09/17 [History] Metoprolol Succinate 50 mg PO DAILY 10/09/17 [History] Multivitamin [One Daily Multivitamin] 1 each PO DAILY 10/09/17 [History] Potassium Chloride 10 meq PO TID 10/09/17 [History] Nicotine Patch [Nicoderm] 21 mg TD DAILY #7 patch.td24 10/18/17 [Rx] Furosemide [Lasix] 20 mg PO DAILY 07/11/18 [History] Loperamide [Imodium] 2 mg PO BID PRN 07/11/18 [History] Allergy/AdvReac Type Severity Reaction Status Date / Time Penicillins [PCN] Allergy See Verified 10/09/17 15:55 Comments morphine AdvReac Itching Verified 01/27/17 21:40 Review of Systems Psychiatric: Reports: irritability Psychiatry Exam - Constitutional Vitals: Temp Pulse Resp BP Pulse Ox 98.1 F 83 14 136/78 98 07/11/18 16:00 07/11/18 16:00 07/11/18 16:00 07/11/18 16:00 07/11/18 16:00 General appearance: age & developmentally appropriate, thin - Psychiatric Patient Orientation: Yes Person, Yes Time, Yes Place Level of alertness: Alert Behavior: distractible, impulsive, dramatic Psychomotor activity: Normal Eye Contact: Maintains Eye Contact Mood Description: Expansive, Irritable Affect description: euthymic Speech Volume: Normal Speech pattern: normal rhythm, Inappropriate to situation Language & Vocabulary: consistent with education Thought Process: Perseveration, Confabulation Thought Content: Yes Intact Perceptual Disturbances: Yes Reacting to internal stimuli Attention Span Ability: Capable of Sustained Attention Patient Reliability: Questionable Historian Fund of knowledge: Yes average Intelligence Estimate: Average Judgment: Fair Insight: Partial Results - Drug Levels and Toxicology Drug Levels and Toxicology: Drug Levels and Toxicity 07/10/18 07/10/18 07/10/18 20:56 20:56 21:52 Urine Opiates Screen Negative Acetaminophen < 10 L Ur Barbiturates Screen Negative Ur Phencyclidine Scrn Negative Ur Amphetamines Screen Negative U Benzodiazepines Scrn Negative Urine Cocaine Screen Negative U Marijuana (THC) Screen Negative Ethyl Alcohol < 10 - Labs Labs: Laboratory Last Values WBC 7.3 K/mcL (4.3-11.1) 07/11/18 04:06 RBC 3.21 M/mcL (3.82-4.97) L 07/11/18 04:06 Hgb 10.2 g/dL (11.5-15.4) L D 07/11/18 04:06 Hct 31.1 % (35.3-44.9) L 07/11/18 04:06 MCV 96.9 fL (83.0-100.0) 07/11/18 04:06 MCH 31.8 pg (28.0-33.3) 07/11/18 04:06 MCHC 32.8 g/dL (31.6-35.5) 07/11/18 04:06 RDW 13.3 % (11.5-14.5) 07/11/18 04:06 Plt Count 326 K/mcL (140-400) 07/11/18 04:06 MPV 9.5 fL (9.4-12.4) 07/11/18 04:06 Immature Gran % 0.4 % (0-4) 07/11/18 04:06 Seg Neutrophils % 53.4 % 07/11/18 04:06 Lymphocytes % 31.5 % 07/11/18 04:06 Monocytes % 12.4 % 07/11/18 04:06 Eosinophils % 1.5 % 07/11/18 04:06 Basophils % 0.8 % 07/11/18 04:06 Neutrophils # 3.9 K/mcL (1.6-8.9) 07/11/18 04:06 Lymphocytes # 2.3 K/mcL (0.6-4.6) 07/11/18 04:06 Monocytes # 0.9 K/mcL (0.0-1.3) 07/11/18 04:06 Eosinophils # 0.1 K/mcL (0.0-0.6) 07/11/18 04:06 Basophils # 0.1 K/mcL (0.0-0.2) 07/11/18 04:06 PT 9.9 Seconds (9.4-12.1) 07/10/18 20:56 INR 0.9 07/10/18 20:56 APTT 26.5 Seconds (26.0-36.0) 07/10/18 20:56 Sodium 140 mEq/L (136-145) 07/11/18 04:06 Potassium 3.9 mEq/L (3.5-5.1) 07/11/18 04:06 Chloride 110 mEq/L (98-107) H 07/11/18 04:06 Carbon Dioxide 25 mEq/L (23-29) 07/11/18 04:06 BUN 9 mg/dL (8-23) 07/11/18 04:06 Creatinine 0.79 mg/dL (0.60-1.20) 07/11/18 04:06 Est GFR ( Amer) > 60 (> 60) 07/11/18 04:06 Est GFR (Non-Af Amer) > 60 (> 60) 07/11/18 04:06 BUN/Creatinine Ratio 11 (6-26) 07/11/18 04:06 Glucose 99 mg/dL (70-105) 07/11/18 04:06 Calculated Osmolality 289 (280-300) 07/11/18 04:06 Calcium 7.8 mg/dL (8.6-10.3) L 07/11/18 04:06 Total Bilirubin 0.6 mg/dL (0.3-1.0) 07/10/18 20:56 Direct Bilirubin 0.1 mg/dL (0.0-0.2) 07/10/18 20:56 Indirect Bilirubin 0.5 mg/dL (0.0-1.2) 07/10/18 20:56 AST 26 Units/L (13-39) 07/10/18 20:56 ALT 22 Units/L (7-52) 07/10/18 20:56 Alkaline Phosphatase 157 Units/L (34-104) H 07/10/18 20:56 Creatine Kinase 126 Units/L (30-223) 07/11/18 04:06 Troponin I < 0.03 ng/mL (< 0.04) 07/10/18 20:56 Serum Total Protein 6.0 g/dL (6.4-8.9) L 07/10/18 20:56 Albumin 3.1 g/dL (3.5-5.7) L 07/10/18 20:56 Globulin 2.9 g/dL (2.4-3.5) 07/10/18 20:56 Albumin/Globulin Ratio 1.1 (1.1-2.2) 07/10/18 20:56 TSH 1.415 mcIU/mL (0.340-5.600) 07/10/18 20:56 Urine Color Yellow (Yellow) 07/10/18 21:52 Urine Clarity Clear (Clear) 07/10/18 21:52 Urine pH 5.5 pH Units (5.0-8.0) 07/10/18 21:52 Ur Specific [place] 1.013 (1.010-1.025) 07/10/18 21:52 Urine Protein Negative mg/dL (Neg-Trace) 07/10/18 21:52 Urine Glucose (UA) Normal mg/dL (Normal) 07/10/18 21:52 Urine Ketones Negative mg/dL (Negative) 07/10/18 21:52 Urine Blood Negative (Negative) 07/10/18 21:52 Urine Nitrite Negative (Negative) 07/10/18 21:52 Urine Bilirubin Negative (Negative) 07/10/18 21:52 Urine Urobilinogen Normal mg/dL (Normal) 07/10/18 21:52 Ur Leukocyte Esterase Negative (Negative) 07/10/18 21:52 Ur Culture Indicated? NO (NO) 07/10/18 21:52 Salicylates < 2.5 mg/dL (15.0-30.0) L 07/10/18 20:56 Urine Opiates Screen Negative ng/mL (Lkczob=186) 07/10/18 21:52 Acetaminophen < 10 mcg/mL (10-20) L 07/10/18 20:56 Ur Barbiturates Screen Negative ng/mL (Voxecb=019) 07/10/18 21:52 Ur Phencyclidine Scrn Negative ng/mL (Cutoff=25) 07/10/18 21:52 Ur Amphetamines Screen Negative ng/mL (Jlxgyc=0928) 07/10/18 21:52 U Benzodiazepines Scrn Negative ng/mL (Uodrfi=977) 07/10/18 21:52 Urine Cocaine Screen Negative ng/mL (Cutoff= 300) 07/10/18 21:52 U Marijuana (THC) Screen Negative ng/mL (Cutoff = 50) 07/10/18 21:52 Ur Drug Screen Interp See Below 07/10/18 21:52 Ethyl Alcohol < 10 mg/dL (Less than 10) 07/10/18 20:56 - Impressions Impressions Chest X-Ray 07/10/18 20:43 IMPRESSION: Increasing right infrahilar airspace opacity which may reflect pneumonia in the appropriate clinical setting. Recommend short-term follow-up to ensure complete resolution. D/ / Yana Velasquez MD / Yana Velasquez MD Interpreting Provider: Yana Velasquez MD Cervical Spine CT 07/10/18 20:44 IMPRESSION: No acute intracranial abnormality. D/ / Krishna Antunez / Krishna Antunez Interpreting Provider: Krishna Antunez Head CT 07/10/18 20:44 IMPRESSION: No acute intracranial abnormality. D/ / Krishna Antunez / Krishna Antunez Interpreting Provider: Krishna Antunez Forearm X-Ray 07/10/18 21:32 IMPRESSION: Left shoulder: No acute abnormality detected. Left forearm: No acute abnormality detected. D/ / Canelo Oconnor MD / Canelo Oconnor MD Interpreting Provider: Canelo Oconnor MD Shoulder X-Ray 07/10/18 21:32 IMPRESSION: Left shoulder: No acute abnormality detected. Left forearm: No acute abnormality detected. D/ / Canelo Oconnor MD / Canelo Oconnor MD Interpreting Provider: Canelo Oconnor MD Consult Discharge Plan - Plan Referrals: Kj Paris MD [Non-Partnered Physician] - 07/31/18 10:15 am ()
[2018-07-12] MEDS: Acetaminophen/Aspirin/Caffeine TABLET PO PRN ×2 (00:39→07:58)
[2018-07-12] MEDS: *HR* Heparin 5,000 UNIT/ML VIAL SQ SCH ×2 (05:47→17:50)
[2018-07-12] MEDS: Multivit/Ca/Min/Fe/FA 1 TAB TABLET PO SCH (07:40)
[2018-07-12] MEDS: Metoprolol XL (24 HR) Succ 50 MG TAB.ER.24H PO SCH (07:40)
[2018-07-12] MEDS: Thiamine (B-1) 100 MG TABLET PO SCH (07:40)
[2018-07-12] MEDS: Famotidine 20 MG TABLET PO SCH (07:40)
[2018-07-12] MEDS: Nicotine 21 MG PATCH.TD24 TD SCH (07:41)
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
[2018-07-12] MEDS ORDERED: Menthol 9.1 MG LOZENGE PO PRN (17:39)
[2018-07-12] MEDS: rOPINIRole 1 MG TABLET PO SCH (21:42)
[2018-07-13] MEDS: *HR* Heparin 5,000 UNIT/ML VIAL SQ SCH (06:05)
--- NOTE | 2018-07-13 08:56 | Internal Med Progress Note ---
Hospitalist Progress Note - Encounter Date of Encounter: 07/13/18 Time of Encounter: 08:44 - Subjective Interval History: Patient was seen and examined earlier this am She is alert and oriented - she is agitated Nursing reports that she did contact her son Luis Enrique via phone - request that licensed master social worker and myself speak with him - Raissa CArehab manager and my self speak with Luis Enrique- we discussed concerns for safety at home and that there seems to be limited family support- discussed home health which he agrees - Also discussed - Exam Vitals: Temp Pulse Resp BP Pulse Ox 98.1 F 89 16 150/79 97 07/13/18 07:21 07/13/18 07:21 07/13/18 07:21 07/13/18 07:21 07/13/18 07:21 - Assessment and Plan (1) Unwitnessed fall Current Visit: Yes Status: Acute (2) DVT prophylaxis Current Visit: Yes Status: Acute (3) HTN (hypertension) Current Visit: No Status: Chronic (4) Dilated ventricle Current Visit: Yes Status: Chronic (5) Neuropsychiatric disorder Current Visit: Yes Status: Acute (6) Elevated WBC count Current Visit: Yes Status: Acute - Time Spent with Patient Total time spent is greater than 50% in coordination of care (as documented) at patient's floor/unit and/or counseling patient: Internal Medicine: Result - Labs CBC & Chem 7: 07/11/18 04:06 07/11/18 04:06 - ABG Interpretation ABG results: PT/INR, D-dimer PT 9.9 Seconds (9.4-12.1) 07/10/18 20:56 Consult Discharge Plan - Plan Referrals: Kj Paris MD [Non-Partnered Physician] - 07/31/18 10:15 am () (3) HTN (hypertension) Qualifiers: Hypertension type: essential hypertension Qualified Code(s): I10 - Essential (primary) hypertension (6) Elevated WBC count Qualifiers: Leukocytosis type: unspecified Qualified Code(s): D72.829 - Elevated white blood cell count, unspecified
[2018-07-13] MEDS: Thiamine (B-1) 100 MG TABLET PO SCH (09:00)
[2018-07-13] MEDS: Famotidine 20 MG TABLET PO SCH (09:00)
[2018-07-13] MEDS: Metoprolol XL (24 HR) Succ 50 MG TAB.ER.24H PO SCH (09:00)
[2018-07-13] MEDS: Nicotine 21 MG PATCH.TD24 TD SCH (09:00)
[2018-07-13] MEDS: Multivit/Ca/Min/Fe/FA 1 TAB TABLET PO SCH (09:00)
[2018-07-13] MEDS: Acetaminophen/Aspirin/Caffeine TABLET PO PRN (09:05)
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
[2018-07-13 11:10] VITALS: BP 158/89
--- NOTE | 2018-07-13 12:02 | Discharge Summary ---
- NOTES TO OUTPATIENT PROVIDER Notes to Outpatient Provider: Presented with Alter mental stat- hx NPH- was seen by neurology no change was seen by psych and eval for mental compitency - The patient lacks mental capacity to make decision regarding medical treatment/finacial affairs - son next of kin accepting responsibility and would like services - discharged with seroquel- will need follow up with neurology neurosurgery and psychiatry Orders not resulted at time of discharge: Pending orders 07/13/18 11:43 CBC [Complete Blood Count] [HEME] Routine Chem 7 [Basic Metabolic Panel] Routine Date of Encounter: 07/13/18 Time of Encounter: 11:49 - Discharge Diagnosis (1) Unwitnessed fall Priority: Primary Status: Acute (2) HTN (hypertension) Priority: Secondary Status: Chronic Qualifiers: Hypertension type: essential hypertension Qualified Code(s): I10 - Essential (primary) hypertension (3) Dilated ventricle Priority: Secondary Status: Chronic (4) Neuropsychiatric disorder Priority: Secondary Status: Acute (5) Elevated WBC count Priority: Secondary Status: Acute Qualifiers: Leukocytosis type: unspecified Qualified Code(s): D72.829 - Elevated white blood cell count, unspecified Hospital course: Ms. Bowles is a 68 year old female with a PMH of CAD, HTN, myocardial infarction, Ester malformation, seizures, NPH, and no neuropsychiatric illness who presented to [facility] ED on 07/11/18 via EMS for altered mental status. Patient's son called to check on the patient and found that she was confused. EMS was notified and transported to [facility] ED She was noted to have bruising to Left side of face- She states she tripped over a cord- her son says she told hi she fell out of bed- this was an unwitnessed fall. Patient was very agitated- difficulty focusing with flight of ideas - she has a hx of manic behavior- Neurology had seen her in the past for NPH and recommended a lumbar puncture for further assessment and evaluation. The patient declined this. CT of head was unremarkable- from previous per neurology Tox screen negative She was seen by neurology - recommending follow up [facility] as outpatient - suspect more of disordered thought p rocess- was seen by psych- felt behavior baseline from previous admission - however concerns about mental capacity concerning medical care - She was evaluated by psych and lack mental capacity to make decisions - Discussed with patient son Luis Enrique who states he will take responsibility of patient care since he is next of kin and would like HH services - tax services professional consulted - for discharge planning -set up HH as well as follow up appointmants with psych neurology neurosurge at [facility] and PCP- given prescription for seroquel -she is hemodynamically stable and will be discharged to the care of her son. - Time Spent with Patient Total time spent providing and/or coordinating discharge services: - Discharge Medications Prescriptions: Quetiapine Fumarate [Seroquel] 50 mg PO HS #30 tablet Home Medications: Lisinopril [Zestril] 5 mg PO DAILY 01/27/17 [History] Ranitidine HCl [Zantac] 300 mg PO DAILY 01/27/17 [History] rOPINIRole [Requip] 2 mg PO HS 01/27/17 [History] Aspirin/Acetaminophen/Caffeine [Excedrin Migraine Caplet] 2 each PO Q6H PRN 10/09/17 [History] Cranberry Fruit Concentrate [Cranberry] 450 mg PO DAILY 10/09/17 [History] Metoprolol Succinate 50 mg PO DAILY 10/09/17 [History] Multivitamin [One Daily Multivitamin] 1 each PO DAILY 10/09/17 [History] Nicotine Patch [Nicoderm] 21 mg TD DAILY #7 patch.td24 10/18/17 [Rx] Loperamide [Imodium] 2 mg PO BID PRN 07/11/18 [History] Quetiapine Fumarate [Seroquel] 50 mg PO HS #30 tablet 07/13/18 [Rx] Allergies/Adverse Reactions: Allergy/AdvReac Type Severity Reaction Status Date / Time Penicillins [PCN] Allergy See Verified 10/09/17 15:55 Comments morphine AdvReac Itching Verified 01/27/17 21:40 Date of admission: 07/11/18 00:53 Primary care physician: PCP NONE Consults: 07/11/18 02:17 Consult to Neurology [CONS] Routine Consulting Provider: [facility] Reason for Consult: Patient known to service for neuropsychiatric disorder of unclear etiology. Admitted for AMS. Psych eval requested upon admission but are of the opinion it may be neurocognitive in etiology and request neuro evaluation. Call Completed: No Consult to Psychiatry [CONS] Routine Consulting Provider: Psychiatry Mikana Reason consult: Altered mental status 07/11/18 09:45 Consult to Physical Therapy [CONS] Routine Comment: Evaluate, develop and implement POC Reason for Consult: falls Does patient have active BEDREST order?: No Is patient medically & hemodynamically stable?: Yes Patient assessed for mobility or mobilized this visit?: No Discharging clinician: Tania Gonzalez Anticipated date of discharge: 07/13/18 - Constitutional Vitals: Temp Pulse Resp BP Pulse Ox 97.7 F 76 16 158/89 100 07/13/18 11:07 07/13/18 11:07 07/13/18 11:07 07/13/18 11:07 07/13/18 11:07 General appearance: Present: A&O X 3 Exam: . - Head Head exam: Present: atraumatic, normocephalic - Eye Eye exam: Present: PERRL, conjuntiva pink, sclera anicteric Pupils: Present: PERRL - Neck Neck exam general surgery: Present: supple, trachea midline. Absent: ly mphadenopathy - Respiratory Respiratory exam: Present: CTAB. Absent: accessory muscle use, rales, rhonchi, wheezes - Cardiovascular Cardiovascular exam: Present: RRR, +S1, +S2. Absent: diastolic murmur, gallop, rubs, systolic murmur - GI/Abdominal GI/Abdominal exam: Present: normal bowel sounds, soft, no peritoneal signs. Absent: distended, tenderness - Extremities Exam Extremities exam: Present: warm, radial pulses palpable and symmetrical. Absent: calf tenderness, cyanotic, pedal edema - Neurological Exam Neurological exam: Present: CN II-XII intact, oriented X3, no focal deficits. Absent: pronater drift, facial droop, speech deficit - Skin Skin exam: Present: dry, intact - Patient Status Disposition: Home Health Service Condition: Fair Functional capacity at discharge: uses cane/walker Overall status at discharge: patient is back to baseline - Discharge Instructions Follow Up With: [facility] [Provider Group] - 08/01/18 2:30 pm Kj Paris MD [Non-Partnered Physician] - 07/31/18 10:15 am () Additional Instructions: [facility] has been set up. They will call to arrange admission date and time. If you have any questions for them you vicenta contact them at #[phone]. - Diet and Activity Activity: increase activity as tolerated Diet: advance to your usual diet
[2018-07-13 12:16] LABS: Basophils # 0.1 K/mcL (0.0-0.2); Basophils % 0.8 %; Eosinophils % 0.4 %; Hematocrit 34.7 % (35.3-44.9); Hemoglobin 11.1 g/dL (11.5-15.4); Immature Granulocytes % 0.4 % (0-4); Lymphocytes # 2.2 K/mcL (0.6-4.6); Lymphocytes % 30.3 %; Mean Corpuscular Hemoglobin 31.5 pg (28.0-33.3); Mean Corpuscular Volume 98.6 fL (83.0-100.0); Mean Platelet Volume 9.1 fL (9.4-12.4); Monocytes # 0.5 K/mcL (0.0-1.3); Monocytes % 7.3 %; Neutrophils # 4.4 K/mcL (1.6-8.9); Platelet Count 355 K/mcL (140-400); Red Blood Count 3.52 M/mcL (3.82-4.97); Red Cell Distribution Width 13.5 % (11.5-14.5); Segmented Neutrophils % 60.8 %
[2018-07-13 12:35] LABS: BUN/Creatinine Ratio 20 (6-26); Blood Urea Nitrogen 16 mg/dL (8-23); Calcium 8.1 mg/dL (8.6-10.3); Carbon Dioxide 27 mEq/L (23-29); Chloride 108 mEq/L (98-107); Glucose 104 mg/dL (70-105); Osmolality,Calculated 285 (280-300); Potassium 3.9 mEq/L (3.5-5.1); Sodium 137 mEq/L (136-145); eGFR For Non-African Americans > 60 (> 60)
--- NOTE | 2018-07-13 12:37 | Physician Discharge Referral ---
Home Health/Hosp Referral Info Transfer to: Home Health Attending Provider: Sandhya Provider in Charge Post Discharge: PCP - Diagnosis (1) Unwitnessed fall Priority: Primary Status: Acute (2) HTN (hypertension) Priority: Secondary Status: Chronic (3) Dilated ventricle Priority: Secondary Status: Chronic (4) Neuropsychiatric disorder Priority: Secondary Status: Acute (5) Elevated WBC count Priority: Secondary Status: Acute - Respiratory Orders Smoking Cessation: Smoking cessation has been advised. For more information, call the [place] Tobacco Quit Line at 0-995-UYEA-NOW. - Diet/Nutrition Diet/Nutrition Orders: Regular - Activity Activity Orders: Walker - Services Needed Following services are medically necessary services: Nursing, Home Health Aide - Transfer Medications Prescriptions: Quetiapine Fumarate [Seroquel] 50 mg PO HS #30 tablet Home Medications: Lisinopril [Zestril] 5 mg PO DAILY 01/27/17 [History] Ranitidine HCl [Zantac] 300 mg PO DAILY 01/27/17 [History] rOPINIRole [Requip] 2 mg PO HS 01/27/17 [History] Aspirin/Acetaminophen/Caffeine [Excedrin Migraine Caplet] 2 each PO Q6H PRN [History] Cranberry Fruit Concentrate [Cranberry] 450 mg PO DAILY 10/09/17 [History] Metoprolol Succinate 50 mg PO DAILY 10/09/17 [History] Multivitamin [One Daily Multivitamin] 1 each PO DAILY 10/09/17 [History] Nicotine Patch [Nicoderm] 21 mg TD DAILY #7 patch.td24 10/18/17 [Rx] Loperamide [Imodium] 2 mg PO BID PRN 07/11/18 [History] Quetiapine Fumarate [Seroquel] 50 mg PO HS #30 tablet 07/13/18 [Rx] Allergies/Adverse Reactions: Allergy/AdvReac Type Severity Reaction Status Date / Time Penicillins [PCN] Allergy See Verified 10/09/17 15:55 Comments morphine AdvReac Itching Verified 01/27/17 21:40 Certification: Further, I certify that my clinical findings support that this patient is homebound (i.e. absences from home require considerable and taxing effort and are for medical reasons or gnosticist services or infrequently or short duration when for other reasons) because: Homebound Reason: Altered mental status requiring supervision when leaving home Attestation: My signature below is to certify that this patient is under my care and that I, or nurse practitioner, or a physician's business development assistant working with me, has a [id number] encounter with this patient.
--- NOTE | 2018-07-13 18:01 | Electrocardiograph Report ---
[address] [address] Test Date: 2018-07-10 Pat Name: Park Bowles Department: [id number] Room: 3B11 Gender: F Bilingual Operator: : 1950 Requested By: Antonio Frankel Order Number: [id number] Reading MD: Otis Barry Measurements Intervals [place] Rate: 120 P: 92 GA: 131 QRS: 8 QRSD: 145 T: 54 QT: 377 QTc: 508 Interpretive Statements Sinus tachycardia Left bundle branch block Low voltage in limb leads Electronically Signed On 07-13-2018 18:00:04 EST by Otis Barry
== END 2018-07-13 13:14 | disposition home health service (06) | DRG 884 ==
LOC: 3BNU 20:33 → EMEROOARM 20:33 → OBSVTOIN 07-11 00:53 → 3BNU 07-11 01:32
PROVIDERS: ADMIT Internal Medicine; ATTEND Internal Medicine